=== PATIENT | female | born 1935 | race Caucasian/White ===

== ENCOUNTER 2016-09-01 10:36 | Observation (INO) | payer OTHER ==
[2016-09-01 12:27] VITALS: BMI 38.1
--- NOTE | 2016-09-01 13:17 | CT ---
CT head without contrast Indication: Dizziness. Syncope and fall. Technique: Axial images from the skullbase to the vertex without contrast. Coronal and sagittal refo rmats provided. Findings: There is a intracranial hemorrhage, mass or mass effect. The no extra-axial fluid collecti on is seen. A atrophic changes are noted with ex vacuo ventricle and sulcal enlargement. Patchy whit e matter hypodensities noted. Review of bone windows shows no osseous lesion. Paranasal sinuses and mastoid air cells are clear. Impression: Atrophy and microangiopathy without acute intracranial hemorrhage or change from the isamar or. If there is high suspicion for acute infarction and it would make a clinical difference to diagn ose stroke now, MRI is most sensitive and specific absent contraindication. Reported By:
--- NOTE | 2016-09-01 13:25 | RAD ---
HISTORY: Syncope Study: Chest one view Comparison: July 18, 2016 Findings: The trachea is midline. The cardiac silhouette is unremarkable. The lungs are clear without focal infiltrate or effusion. The bony thorax is unremarkable. IMPRESSION: 1. No acute cardiopulmonary disease. Reported By:
[2016-09-01] MEDS ORDERED: XYLOCAINE 1 % (PLAIN) ONE (13:43)
[2016-09-01 14:12] LABS: BILIRUBIN,URINE NEGATIVE (NEGATIVE); BLOOD/HEMOGLOBIN,URINE NEGATIVE (NEGATIVE); GLUCOSE, URINE NEGATIVE (NEGATIVE); KETONES,URINE NEGATIVE (NEGATIVE); LEUKOCYTE ESTERASE ,URINE NEGATIVE (NEGATIVE); NITRITES,URINE NEGATIVE (NEGATIVE); PROTEIN,URINE NEGATIVE (NEGATIVE); UROBILINOGEN,URINE NORMAL (NORMAL)
--- NOTE | 2016-09-01 14:18 | DR.UPDATE ---
H&P Update History and Physical Update: History and Physical reviewed and patient examined. Changes noted: NO Yes with the following:Agree with H&P from Dr Miller. And will place central venous catheter secondary to exhaustion of peripheral veins. Procedures (ALL) - Central Line Placement PCM.CLCO: written consent Time out performed: Yes Patient placed pm monitor/pulse ox: Yes MD prep: mask, gown, gloves Centrial line prep: chlorhexidine scrub, sterile drapes applied Local anesthsia used: lidocane 1% Ultrasound used for placement: Yes Central line lumen ininserted: triple Post procedure: sutured in place, good blood return, all ports aspirated, flushed,capped, sterile dressing applied Post procedure xray: other (pending) Patient tolerated procedure: Yes Complications: none
[2016-09-01 14:30] LABS: APPEARANCE,URINE HAZY (CLEAR); BACTERIA,URINE TRACE /HPF (NEGATIVE); COLOR,URINE YELLOW (YELLOW); RBC,URINE 0-2 /HPF (NEGATIVE); SQUAMOUS EPITHELIAL CELL,UR RARE /HPF (NEGATIVE)
--- NOTE | 2016-09-01 14:38 | RAD ---
Chest AP portable Indication: Central line placement. Comparison: September 01, 2016 radiograph. Findings: Partially visualize right probably IJ catheter tip projects over the SVC. There is no pneu mothorax seen. Heart size upper limits of normal. Chronic lung changes again noted with basilar scar ring. Impression: New right-sided catheter tip projects over the SVC. Study is mildly limited due to posit ioning. Reported By:
[2016-09-01] MEDS ORDERED: NORCO 10/325 TAB PO PRN (14:39)
[2016-09-01] MEDS: NS 1000 ML 1,000 ML IV SCH (14:54)
[2016-09-01 15:51] LABS: BASOPHILS # (AUTO) 0.1 X10^3/uL (0.0-0.1); BASOPHILS % (AUTO) 1.7 % (0.2-1.0); EOSINOPHILS # (AUTO) 0.3 x10^3/uL (0.0-0.2); EOSINOPHILS % (AUTO) 4.2 % (0.9-2.9); HEMATOCRIT 42.9 % (36.0-47.0); HEMOGLOBIN 14.3 g/dL (12.0-16.0); LYMPHOCYTES # (AUTO) 0.8 X10^3/uL (1.3-2.9); LYMPHOCYTES % (AUTO) 13.7 % (21.0-51.0); MEAN CORPUSCULAR HEMOGLOBIN 30.2 pg (27.0-34.0); MEAN CORPUSCULAR HGB CONC 33.3 g/dL (33.0-35.0); MEAN CORPUSCULAR VOLUME 90.8 fL (80.0-100.0); MEAN PLATELET VOLUME 10.8 fL (7.4-11.0); MONOCYTES # (AUTO) 0.7 x10^3/uL (0.3-0.8); MONOCYTES % (AUTO) 12.1 % (0.0-13.0); NEUTROPHILS # (AUTO) 4.2 x10^3/uL (2.2-4.8); NEUTROPHILS % (AUTO) 68.3 % (42.0-75.0); PLATELET COUNT 148 X10^3/uL (150.0-450.0); RED BLOOD COUNT 4.72 X10^6/uL (3.5-5.4); RED CELL DISTRIBUTION WIDTH 13.6 % (11.6-16.5); WHITE BLOOD COUNT 6.1 X10^3/uL (3.6-10.0)
[2016-09-01 16:10] LABS: ALBUMIN 3.2 g/dL (3.4-5.0); CALCIUM 8.7 mg/dL (8.5-10.1); CARBON DIOXIDE 31.2 mmol/L (21-32); COR CA(FOR HYPOALB) 9.3 mg/dL (8.5-10.1); CREATININE 1.15 mg/dL (0.55-1.02); TOTAL PROTEIN 6.9 g/dL (6.4-8.2)
[2016-09-01] MEDS: NORCO 10/325 TAB PO PRN (21:59)
[2016-09-01] MEDS: K-DUR TAB 20 MEQ PO SCH (22:01)
[2016-09-01] MEDS: LOPRESSOR TAB 25 MG PO SCH (22:08)
[2016-09-02] MEDS: NS 1000 ML 1,000 ML IV SCH ×2 (02:24→14:43)
[2016-09-02] MEDS ORDERED: LYRICA CAP 100 MG PO SCH (09:00)
[2016-09-02] MEDS ORDERED: ALDACTONE TAB 25 MG PO SCH (09:00)
[2016-09-02] MEDS ORDERED: CYMBALTA PO SCH (09:00)
[2016-09-02] MEDS ORDERED: LASIX PO SCH (09:00)
[2016-09-02] MEDS: ZOLOFT PO SCH (09:43)
[2016-09-02] MEDS: LOPRESSOR TAB 25 MG PO SCH ×2 (09:44→21:43)
[2016-09-02] MEDS: NORCO 10/325 TAB PO PRN ×3 (09:51→22:19)
[2016-09-02] MEDS: FLONASE NASAL SPRAY ENOSTRIL SCH (09:57)
--- NOTE | 2016-09-02 18:06 | PCM.PROG ---
Progress Note - Progress Note for Day of Date: 09/02/16 - Subjective Subjective: RIGHT LOWER ABDOMINAL PAIN AND NAUSEA. PT HAS CO CHRONIC CONSTIPATION AND HX DIVERTICULITIS. PT WAS ADMITTED ONE DAY AGO FOR WEAKNESS AND CXR AND CT HEAT W/O ACUTE FINDINGS - Past Medical Family Social History Past Med/Fam/Surg Hx: No changes since H&P Allergies: Allergies Penicillins Allergy (Verified 07/18/16 11:57) - Review of Systems ROS: No change since H&P - Vital Signs and I&O's Vital Signs: Temperature 98.2 F Pulse Rate [Right Brachial] 72 Respiratory Rate 20 Blood Pressure [Right Arm] 129/59 Blood Pressure [Right Calf] 116/66 Blood Pressure [Left Arm] 109/58 Blood Pressure 135/63 O2 Sat by Pulse Oximetry 95 Intake and Output: Intake & Output 08/31/16 09/01/16 09/02/16 09/03/16 11:59 11:59 11:59 11:59 Intake Total 1521 1080 Output Total 600 2100 Balance 921 -1020 - Physical Exam Oriented: Normal Eyes: Normal Ear: Normal Nose: Normal Throat: Normal Respiratory: Normal Cardiovascular: Normal : Normal Auscultation: Bowel Sounds: Normal Tenderness: RUQ, RLQ, Epigastric Skin: Normal Musculoskeletal: Back:Thoracic, Back:Lumbar Speech Pattern: Clear, Appropriate - Laboratory and Diagnostics Result Diagrams: 09/01/16 15:40 09/01/16 15:40 Labs: Laboratory WBC 6.1 X10^3/uL (3.6-10.0) 09/01/16 15:40 RBC 4.72 X10^6/uL (3.5-5.4) 09/01/16 15:40 Hgb 14.3 g/dL (12.0-16.0) 09/01/16 15:40 Hct 42.9 % (36.0-47.0) 09/01/16 15:40 MCV 90.8 fL (80.0-100.0) 09/01/16 15:40 MCH 30.2 pg (27.0-34.0) 09/01/16 15:40 MCHC 33.3 g/dL (33.0-35.0) 09/01/16 15:40 RDW 13.6 % (11.6-16.5) 09/01/16 15:40 Plt Count 148 X10^3/uL (150.0-450.0) L 09/01/16 15:40 MPV 10.8 fL (7.4-11.0) 09/01/16 15:40 Neut % 68.3 % (42.0-75.0) 09/01/16 15:40 Lymph % 13.7 % (21.0-51.0) L 09/01/16 15:40 [place] % 12.1 % (0.0-13.0) 09/01/16 15:40 Eos % 4.2 % (0.9-2.9) H 09/01/16 15:40 Baso % 1.7 % (0.2-1.0) H 09/01/16 15:40 Neut # 4.2 x10^3/uL (2.2-4.8) 09/01/16 15:40 Lymph # 0.8 X10^3/uL (1.3-2.9) L 09/01/16 15:40 [place] # 0.7 x10^3/uL (0.3-0.8) 09/01/16 15:40 Eos # 0.3 x10^3/uL (0.0-0.2) H 09/01/16 15:40 Baso # 0.1 X10^3/uL (0.0-0.1) 09/01/16 15:40 Absolute Nucleated RBC 0.0 /100WBC 09/01/16 15:40 Sodium 142 mmol/L (136-145) 09/01/16 15:40 Corrected Sodium 142 mmol/L (136-145) 09/01/16 15:40 Potassium 4.1 mmol/L (3.5-5.1) 09/01/16 15:40 Chloride 105 mmol/L (98-107) 09/01/16 15:40 Carbon Dioxide 31.2 mmol/L (21-32) 09/01/16 15:40 BUN 15 mg/dL (7-18) 09/01/16 15:40 Creatinine 1.15 mg/dL (0.55-1.02) H 09/01/16 15:40 Est GFR (MDRD) Af Amer 58 (>60) L 09/01/16 15:40 Est GFR (MDRD) Non-Af 48 (>60) L 09/01/16 15:40 Glucose 117 mg/dL (65-99) H 09/01/16 15:40 Calcium 8.7 mg/dL (8.5-10.1) 09/01/16 15:40 Corrected Calcium 9.3 mg/dL (8.5-10.1) 09/01/16 15:40 Total Bilirubin 0.40 mg/dL (0.2-1.0) 09/01/16 15:40 AST 20 Units/L (15-37) 09/01/16 15:40 ALT 19 Units/L (12-78) 09/01/16 15:40 Alkaline Phosphatase 93 Units/L (46-116) 09/01/16 15:40 Total Protein 6.9 g/dL (6.4-8.2) 09/01/16 15:40 Albumin 3.2 g/dL (3.4-5.0) L 09/01/16 15:40 Globulin 3.7 g/dL (2.5-4.5) 09/01/16 15:40 Albumin/Globulin Ratio 0.9 Ratio (1.1-2.1) L 09/01/16 15:40 Specimen Type Clean catch urine 09/01/16 13:57 Urine Color Yellow (YELLOW) 09/01/16 13:57 Urine Appearance Hazy (CLEAR) 09/01/16 13:57 Urine pH 5.0 (5.0 - 8.0) 09/01/16 13:57 Ur Specific [place] 1.015 (1.000-1.030) 09/01/16 13:57 Urine Protein Negative (NEGATIVE) 09/01/16 13:57 Urine Glucose (UA) Negative (NEGATIVE) 09/01/16 13:57 Urine Ketones Negative (NEGATIVE) 09/01/16 13:57 Urine Occult Blood Negative (NEGATIVE) 09/01/16 13:57 Urine Nitrite Negative (NEGATIVE) 09/01/16 13:57 Urine Bilirubin Negative (NEGATIVE) 09/01/16 13:57 Urine Urobilinogen Normal (NORMAL) 09/01/16 13:57 Ur Leukocyte Esterase Negative (NEGATIVE) 09/01/16 13:57 Urine RBC 0-2 /HPF (NEGATIVE) 09/01/16 13:57 Urine WBC 0-2 /HPF (NEGATIVE) 09/01/16 13:57 Ur Squamous Epith Cells Rare /HPF (NEGATIVE) 09/01/16 13:57 Urine Bacteria Trace /HPF (NEGATIVE) 09/01/16 13:57 Ur Culture Indicated? No/not indicated 09/01/16 13:57 - Plan (1) Abdominal pain Status: Acute Qualifiers: Abdominal location: right lower quadrant Qualified Code(s): R10.31 - Right lower quadrant pain Plan: AMYLASE AND LIPASE. STAT ABDOMEN SERIES. CT ABD/PELVIS Q AM, NPO AFTER MIDNIGHT (2) Weakness Status: Acute (3) HTN (hypertension) Status: Chronic Qualifiers: Hypertension type: H (4) Osteoporosis Status: Chronic Qualifiers: Osteoporosis type: O Presence of current pathological fracture: P Encounter type: E Fracture healing: F (5) Pulmonary HTN Status: Chronic
--- NOTE | 2016-09-02 20:19 | RAD ---
Acute abdomen series three views Indication: Abdominal pain right flank pain. Comparison: September 01, 2016 chest radiograph. Findings: Chest radiograph shows right IJ catheter projecting over the IVC. No new acute abnormality of the chest seen. Multiple vertebroplasty changes noted with spine degenerative changes spine stim ulator device projecting over the left hip. There is no free air or pneumatosis. Gas and stool seen in the colon. No dilated loop of small bowel seen. Impression: No high-grade obstruction, gross free air or pneumatosis seen. Reported By:
[2016-09-02] MEDS ORDERED: MIRALAX POWDER (1 DOSE 17GM) PO SCH (21:00)
[2016-09-02] MEDS: PROTONIX INJ 40 MG VIAL IVP SCH (21:42)
[2016-09-02] MEDS: K-DUR TAB 20 MEQ PO SCH (21:43)
[2016-09-03] MEDS: TYLENOL 325 MG TAB PO PRN ×2 (00:07→08:29)
[2016-09-03] MEDS: NORCO 10/325 TAB PO PRN ×2 (04:48→11:50)
[2016-09-03] MEDS: NS 1000 ML 1,000 ML IV SCH (04:50)
[2016-09-03 05:18] LABS: BASOPHILS % (AUTO) 0.7 % (0.2-1.0); EOSINOPHILS # (AUTO) 0.2 x10^3/uL (0.0-0.2); EOSINOPHILS % (AUTO) 5.5 % (0.9-2.9); HEMATOCRIT 38.3 % (36.0-47.0); HEMOGLOBIN 12.8 g/dL (12.0-16.0); LYMPHOCYTES # (AUTO) 0.7 X10^3/uL (1.3-2.9); LYMPHOCYTES % (AUTO) 14.8 % (21.0-51.0); MEAN CORPUSCULAR HEMOGLOBIN 30.3 pg (27.0-34.0); MEAN CORPUSCULAR HGB CONC 33.5 g/dL (33.0-35.0); MEAN CORPUSCULAR VOLUME 90.5 fL (80.0-100.0); MONOCYTES # (AUTO) 0.5 x10^3/uL (0.3-0.8); MONOCYTES % (AUTO) 12.1 % (0.0-13.0); NEUTROPHILS % (AUTO) 66.9 % (42.0-75.0); PLATELET COUNT 111 X10^3/uL (150.0-450.0); RED BLOOD COUNT 4.23 X10^6/uL (3.5-5.4); RED CELL DISTRIBUTION WIDTH 13.3 % (11.6-16.5); WHITE BLOOD COUNT 4.4 X10^3/uL (3.6-10.0)
[2016-09-03 05:36] LABS: ALANINE AMINOTRANSFERASE 14 Units/L (12-78); ALBUMIN 2.9 g/dL (3.4-5.0); ALKALINE PHOSPHATASE 77 Units/L (46-116); AMYLASE 86 Units/L (25-115); ASPARTATE AMINO TRANSFERASE 19 Units/L (15-37); BLOOD UREA NITROGEN 22 mg/dL (7-18); CALCIUM 8.5 mg/dL (8.5-10.1); CARBON DIOXIDE 30.3 mmol/L (21-32); CHLORIDE 107 mmol/L (98-107); COR CA(FOR HYPOALB) 9.4 mg/dL (8.5-10.1); GLUCOSE 87 mg/dL (65-99); LIPASE 114 Units/L (73-393); SODIUM 144 mmol/L (136-145); TOTAL PROTEIN 6.4 g/dL (6.4-8.2); eGFR BLACK RACES > 60 (>60); eGFR NON BLACK RACES 57 (>60)
--- NOTE | 2016-09-03 08:13 | CT ---
HISTORY: Fever, nausea, abdominal pain Study: CT abdomen pelvis without contrast Comparison: None Technique: Axial non contrast images with coronal and sagittal reformats. Dose reduction procedures were used with MA/kv adjusted for body size. The lack of intravenous contrast limits this examinatio n. Findings: The lung bases are clear. There is a small hiatal hernia present. The liver, spleen, adrenal glands, and pancreas are within normal limits. The patient is status post cholecystectomy. The kidneys are unobstructed and without stones. No ureteral calculi are identified. The appendix is surgically abse nt by history. Calcific atherosclerotic change is present in a nondilated abdominal aorta. No enlarg ed intraperitoneal or retroperitoneal lymphadenopathy is identified. There is no evidence for divert iculitis or colitis. Examination of the pelvis demonstrated no evidence for pelvic masses, pelvic fl uid, or pelvic lymphadenopathy. No bladder abnormality is identified. No lytic or blastic skeletal l esions are identified. Multiple thoracic and lumbar compression fractures previously treated with ky phoplasty are noted. IMPRESSION: Small hiatal hernia No other significant findings on unenhanced examination Reported By:
[2016-09-03] MEDS: ZOLOFT PO SCH (08:27)
[2016-09-03] MEDS: PROTONIX INJ 40 MG VIAL IVP SCH (08:27)
[2016-09-03] MEDS: LOPRESSOR TAB 25 MG PO SCH (08:27)
[2016-09-03] MEDS: FLONASE NASAL SPRAY ENOSTRIL SCH (08:33)
--- NOTE | 2016-09-03 09:07 | RAD ---
HISTORY: Chronic back pain Study: T-spine three view Comparison: CT thoracic spine July 18, 2016 Findings: There is increased thoracic kyphosis due to multiple lower thoracic compression fractures previously treated with kyphoplasty. There is loss of height in T11 unchanged from the prior CT. The remainder the vertebral bodies are of average height. Degenerative disc disease is present at T11-12 and T12- L1. The remainder the disc heights are preserved. The pedicles are intact. The paraspinous soft tiss ues are normal. IMPRESSION: Increased thoracic kyphosis secondary to multiple lower thoracic and upper lumbar compression fractu res previously treated with kyphoplasty Mild compression T11 unchanged from the prior examination Degenerative disc disease T11-12, T12-L1 Reported By:
[2016-09-03] MEDS ORDERED: CHECK PATCH XX SCH (12:00)
[2016-09-03 12:29] VITALS: BP 129/58
[2016-09-03] MEDS ORDERED: LYRICA CAP 100 MG PO SCH (21:00)
[2016-09-03] MEDS ORDERED: CYMBALTA PO SCH (21:00)
== END 2016-09-03 13:40 | disposition home or self-care (01) ==
LOC: MED/SURG 10:36
PROVIDERS: ADMIT Internal Medicine; ATTEND Internal Medicine
PROC: 02HV33Z Insertion of Infusion Device into Superior Vena Cava, Percutaneous Approach (ICD-10-PCS; principal; 2016-09-01)
DX: R55 Syncope and collapse (principal); R42 Dizziness and giddiness; R29.6 Repeated falls; R10.31 Right lower quadrant pain; R10.84 Generalized abdominal pain; R11.0 Nausea; K59.09 Other constipation; R53.1 Weakness; I27.2 Other secondary pulmonary hypertension; M81.8 Other osteoporosis without current pathological fracture; M51.34 Other intervertebral disc degeneration, thoracic region; Z87.19 Personal history of other diseases of the digestive system; I87.2 Venous insufficiency (chronic) (peripheral)
CPT/HCPCS: 36415; 36556; 70450; 71010; 72072; 74022; 74176; 80053; 81001; 82150; 83690; 85025; 87040; 93005; 93010; 94760; A4222; C9113; G0378; J2001

== ENCOUNTER 2018-09-06 14:05 | Inpatient (IN) ==
[2018-09-06 14:54] LABS: BASOPHILS % (AUTO) 0.5 % (0.2-1.0); EOSINOPHILS # (AUTO) 0.2 x10^3/uL (0.0-0.2); EOSINOPHILS % (AUTO) 2.4 % (0.9-2.9); HEMATOCRIT 43.3 % (36.0-47.0); HEMOGLOBIN 14.4 g/dL (12.0-16.0); LYMPHOCYTES # (AUTO) 0.8 X10^3/uL (1.3-2.9); LYMPHOCYTES % (AUTO) 11.1 % (21.0-51.0); MEAN CORPUSCULAR HEMOGLOBIN 30.8 pg (27.0-34.0); MEAN CORPUSCULAR HGB CONC 33.3 g/dL (33.0-35.0); MEAN CORPUSCULAR VOLUME 92.6 fL (80.0-100.0); MEAN PLATELET VOLUME 11.5 fL (7.4-11.0); MONOCYTES # (AUTO) 0.8 x10^3/uL (0.3-0.8); MONOCYTES % (AUTO) 11.4 % (0.0-13.0); NEUTROPHILS # (AUTO) 5.5 x10^3/uL (2.2-4.8); NEUTROPHILS % (AUTO) 74.6 % (42.0-75.0); PLATELET COUNT 133 X10^3/uL (150.0-450.0); RED BLOOD COUNT 4.67 X10^6/uL (3.5-5.4); RED CELL DISTRIBUTION WIDTH 13.3 % (11.6-16.5); WHITE BLOOD COUNT 7.3 X10^3/uL (3.6-10.0)
--- NOTE | 2018-09-06 15:00 | DR.EXTPAIN ---
HPI Time seen Time Seen by Provider: 09/06/18 14:13 PCP Primary Care Physician: JOHNY Complaint/Symptoms Chief Complaint:: PT. STATES SHE FELL ON THURSDAY AND C/O OF LOWER BACK AND ABDOMEN PAIN. PT. STATES SHE HAS BEEN COUGHING X 2 WEEKS AND HAS RIB PAIN. Source History Provided: Patient Mode of arrival Mode of Arrival: Wheelchair Timing Onset of Chief Complaint: 09/04/18 PMH PMH Past Medical History: Yes Past Medical History: Anxiety, Arthritis, Depression, GERD and Sleep Apnea Past Surgical History: Yes Surgical History: Cholecystectomy, Hysterectomy and Mastectomy Family History History of Family Medical Conditions: Yes Family Medical History: Diabetes Mellitus, Cancer, [place], Heart Failure, Sudden Cardiac and Hypertension Social History Does patient currently use any type of tobacco product: No Have you used tobacco products in the last 12 months: No Type of Tobacco Use: None Does any household member use tobacco: No Alcohol Use: None Do you use any recreational Drugs:: No Lives Where: [facility] infectious screening In the last 2 months have you had wt loss of >10#?: NO Have you had fever, night sweats or hemotysis?: No Have you traveled outside the country in the last 6 months?: No Isolation: Standard PE Vital Signs Vitals: Temperature 97.8 F Pulse Rate [Right Brachial] 92 Pulse Rate 91 Respiratory Rate 17 Blood Pressure [Right Arm] 143/74 Blood Pressure [Right Calf] 116/66 Blood Pressure [Left Arm] 130/60 Blood Pressure 142/77 O2 Sat by Pulse Oximetry 95 ROR Labs Reviewed Result Diagrams: 09/06/18 14:46 09/06/18 14:46 Laboratory: WBC 7.3 X10^3/uL (3.6-10.0) 09/06/18 14:46 RBC 4.67 X10^6/uL (3.5-5.4) 09/06/18 14:46 Hgb 14.4 g/dL (12.0-16.0) 09/06/18 14:46 Hct 43.3 % (36.0-47.0) 09/06/18 14:46 MCV 92.6 fL (80.0-100.0) 09/06/18 14:46 MCH 30.8 pg (27.0-34.0) 09/06/18 14:46 MCHC 33.3 g/dL (33.0-35.0) 09/06/18 14:46 RDW 13.3 % (11.6-16.5) 09/06/18 14:46 Plt Count 133 X10^3/uL (150.0-450.0) L 09/06/18 14:46 MPV 11.5 fL (7.4-11.0) H 09/06/18 14:46 Neut % (Auto) 74.6 % (42.0-75.0) 09/06/18 14:46 Lymph % (Auto) 11.1 % (21.0-51.0) L 09/06/18 14:46 [place] % (Auto) 11.4 % (0.0-13.0) 09/06/18 14:46 Eos % (Auto) 2.4 % (0.9-2.9) 09/06/18 14:46 Baso % (Auto) 0.5 % (0.2-1.0) 09/06/18 14:46 Neut # (Auto) 5.5 x10^3/uL (2.2-4.8) H 09/06/18 14:46 Lymph # (Auto) 0.8 X10^3/uL (1.3-2.9) L 09/06/18 14:46 [place] # (Auto) 0.8 x10^3/uL (0.3-0.8) 09/06/18 14:46 Eos # (Auto) 0.2 x10^3/uL (0.0-0.2) 09/06/18 14:46 Baso # (Auto) 0.0 X10^3/uL (0.0-0.1) 09/06/18 14:46 Absolute Nucleated RBC 0.0 /100WBC 09/06/18 14:46 Sodium 138 mmol/L (136-145) 09/06/18 14:46 Corrected Sodium TNP 09/06/18 14:46 Potassium 4.9 mmol/L (3.5-5.1) 09/06/18 14:46 Chloride 103 mmol/L (98-107) 09/06/18 14:46 Carbon Dioxide 29.7 mmol/L (21-32) 09/06/18 14:46 BUN 24 mg/dL (7-18) H 09/06/18 14:46 Creatinine 1.09 mg/dL (0.55-1.02) H 09/06/18 14:46 Est GFR (MDRD) Af Amer > 60 (>60) 09/06/18 14:46 Est GFR (MDRD) Non-Af 51 (>60) L 09/06/18 14:46 Glucose 93 mg/dL (65-99) 09/06/18 14:46 Calcium 9.1 mg/dL (8.5-10.1) 09/06/18 14:46 Corrected Calcium TNP 09/06/18 14:46 Total Bilirubin 0.60 mg/dL (0.2-1.0) 09/06/18 14:46 AST 79 Units/L (15-37) H 09/06/18 14:46 ALT 87 Units/L (12-78) H 09/06/18 14:46 Alkaline Phosphatase 95 Units/L (46-116) 09/06/18 14:46 Total Protein 7.4 g/dL (6.4-8.2) 09/06/18 14:46 Albumin 3.5 g/dL (3.4-5.0) 09/06/18 14:46 Globulin 3.9 g/dL (2.5-4.5) 09/06/18 14:46 Albumin/Globulin Ratio 0.9 Ratio (1.1-2.1) L 09/06/18 14:46 Amylase 98 Units/L (25-115) 09/06/18 14:46 Lipase 114 Units/L (73-393) 09/06/18 14:46 Diagnosis Discharge Problem: Intractable pain
[2018-09-06 15:05] LABS: ALANINE AMINOTRANSFERASE 87 Units/L (12-78); ALBUMIN 3.5 g/dL (3.4-5.0); ALKALINE PHOSPHATASE 95 Units/L (46-116); AMYLASE 98 Units/L (25-115); ASPARTATE AMINO TRANSFERASE 79 Units/L (15-37); BLOOD UREA NITROGEN 24 mg/dL (7-18); CALCIUM 9.1 mg/dL (8.5-10.1); CARBON DIOXIDE 29.7 mmol/L (21-32); CHLORIDE 103 mmol/L (98-107); CREATININE 1.09 mg/dL (0.55-1.02); LIPASE 114 Units/L (73-393); SODIUM 138 mmol/L (136-145); TOTAL PROTEIN 7.4 g/dL (6.4-8.2); eGFR NON BLACK RACES 51 (>60)
--- NOTE | 2018-09-06 15:50 | CT ---
HISTORY: Fall, low back pain Study: CT lumbar spine without contrast Comparison: CT 09/03/2016 Technique: Multiple axial images of the lumbar spine without the administration of IV contrast. Sagittal and coronal reformats were performed and reviewed. Dose reduction techniques including Automated Exposure Control (AEC) and adjustment of mA and kV were utilized. Findings: There is osteopenia noted which reduces sensitivity to detect nondisplaced fractures. There is kyphosis of the spine centered at the thoracolumbar junction with chronic compression fractures of T11-L3 post vertebroplasty. There is a new fracture involving the inferior/posterior endplate T10 best seen on sagittal images. There are also acute fracture lucency through the bilateral pedicles of T11 also best seen on sagittal images. There is a subacute appearing fracture of the left posterior 12th rib. There is a trace right pleural effusion and chronic emphysematous disease. Gallbladder is removed. IMPRESSION: 1. Nondisplaced fractures involving the inferior/posterior endplate of T10 and additional nondisplaced fractures through the bilateral pedicles of T11 best seen on the sagittal images. 2. Chronic fractures post vertebroplasty involving T11-L3 in the setting of diffuse osteopenia. Reported By:
[2018-09-06] MEDS ORDERED: ZOFRAN INJ 4 MG VIAL IVP ONE (15:58)
[2018-09-06] MEDS ORDERED: ZOFRAN INJ 4 MG VIAL ONE (16:05)
[2018-09-06] MEDS ORDERED: MORPHINE SULFATE INJ 4 MG ONE (16:06)
[2018-09-06] MEDS: MORPHINE SULFATE INJ 4 MG IVP ONE ×2 (16:14→17:05)
--- NOTE | 2018-09-06 16:52 | CT ---
HISTORY: Fall Study: CT brain without contrast Comparison: September 01, 2016 Technique: Multiple axial images of the brain were obtained from the skull base to the vertex without administration of IV contrast. Findings: No acute intraparenchymal hemorrhage or mass can be identified. No extra-axial fluid collections are seen. No alteration in the attenuation of the brain parenchyma can be identified to suggest acute or subacute ischemic change. The ventricles, sulci, and cisterns demonstrate an appearance consistent with a mild degree of generalized atrophy. Patchy areas of decreased attenuation within the periventricular, subcortical, and subinsular white matter suggest changes of chronic small vessel ischemic disease. If symptoms or clinical concern persist recommend continued follow-up for further evaluation. IMPRESSION: No acute intracranial process can be identified. Mild generalized atrophy with findings consistent with changes of chronic small vessel ischemic disease. Reported By:
[2018-09-06] MEDS ORDERED: MORPHINE SULFATE INJ 2 MG INJ IVP SCH (18:00)
[2018-09-06] MEDS ORDERED: ZOFRAN INJ 4 MG VIAL IVP PRN (18:02)
[2018-09-06] MEDS ORDERED: XANAX PO PRN (18:02)
[2018-09-06 18:24] LABS: BILIRUBIN,URINE NEGATIVE (NEGATIVE); BLOOD/HEMOGLOBIN,URINE NEGATIVE (NEGATIVE); GLUCOSE, URINE NEGATIVE (NEGATIVE); KETONES,URINE NEGATIVE (NEGATIVE); LEUKOCYTE ESTERASE ,URINE NEGATIVE (NEGATIVE); NITRITES,URINE NEGATIVE (NEGATIVE); PROTEIN,URINE NEGATIVE (NEGATIVE); UROBILINOGEN,URINE NORMAL (NORMAL)
[2018-09-06 18:26] LABS: APPEARANCE,URINE CLEAR (CLEAR); COLOR,URINE YELLOW (YELLOW)
[2018-09-06 18:44] VITALS: BMI 38.5
[2018-09-06] MEDS: NS 1000 ML 1,000 ML IV SCH (18:49)
[2018-09-06] MEDS ORDERED: MORPHINE SULFATE INJ 2 MG INJ IVP ONE (20:12)
[2018-09-06] MEDS: PriLOSEC PO SCH (20:53)
[2018-09-06] MEDS: LYRICA CAP 150 MG PO SCH (20:53)
[2018-09-06] MEDS: INDERAL TAB 10 MG PO SCH (20:53)
[2018-09-06] MEDS: COLACE CAP 100 MG PO SCH (20:53)
[2018-09-06] MEDS: MILK OF MAGNESIA PO SCH (20:54)
[2018-09-06] MEDS: MORPHINE SULFATE INJ 2 MG INJ IVP PRN (22:00)
[2018-09-07] MEDS: MORPHINE SULFATE INJ 2 MG INJ IVP SCH ×3 (01:26→18:18)
[2018-09-07 05:24] LABS: BASOPHILS % (AUTO) 0.6 % (0.2-1.0); EOSINOPHILS # (AUTO) 0.2 x10^3/uL (0.0-0.2); EOSINOPHILS % (AUTO) 2.6 % (0.9-2.9); HEMATOCRIT 43.5 % (36.0-47.0); HEMOGLOBIN 14.4 g/dL (12.0-16.0); LYMPHOCYTES # (AUTO) 0.7 X10^3/uL (1.3-2.9); LYMPHOCYTES % (AUTO) 12.9 % (21.0-51.0); MEAN CORPUSCULAR HGB CONC 33.1 g/dL (33.0-35.0); MEAN CORPUSCULAR VOLUME 93.8 fL (80.0-100.0); MEAN PLATELET VOLUME 12.6 fL (7.4-11.0); MONOCYTES % (AUTO) 16.6 % (0.0-13.0); NEUTROPHILS # (AUTO) 3.9 x10^3/uL (2.2-4.8); NEUTROPHILS % (AUTO) 67.3 % (42.0-75.0); PLATELET COUNT 132 X10^3/uL (150.0-450.0); RED BLOOD COUNT 4.63 X10^6/uL (3.5-5.4); RED CELL DISTRIBUTION WIDTH 13.3 % (11.6-16.5); WHITE BLOOD COUNT 5.8 X10^3/uL (3.6-10.0)
[2018-09-07] MEDS: MORPHINE SULFATE INJ 2 MG INJ IVP PRN ×3 (05:26→21:42)
[2018-09-07 05:34] LABS: ALANINE AMINOTRANSFERASE 338 Units/L (12-78); ALBUMIN 3.1 g/dL (3.4-5.0); ALKALINE PHOSPHATASE 226 Units/L (46-116); ASPARTATE AMINO TRANSFERASE 440 Units/L (15-37); BLOOD UREA NITROGEN 19 mg/dL (7-18); CALCIUM 8.8 mg/dL (8.5-10.1); CARBON DIOXIDE 32.4 mmol/L (21-32); CHLORIDE 101 mmol/L (98-107); COR CA(FOR HYPOALB) 9.5 mg/dL (8.5-10.1); CREATININE 1.22 mg/dL (0.55-1.02); SODIUM 140 mmol/L (136-145); TOTAL PROTEIN 6.9 g/dL (6.4-8.2); eGFR NON BLACK RACES 45 (>60)
[2018-09-07] MEDS: NS 1000 ML 1,000 ML IV SCH ×2 (06:31→20:03)
[2018-09-07 08:27] LABS: CHOL/HDL RATIO 3.2 (0.0-5.0)
[2018-09-07] MEDS: K-DUR TAB 20 MEQ PO SCH (09:02)
[2018-09-07] MEDS: MILK OF MAGNESIA PO SCH (09:02)
[2018-09-07] MEDS: LASIX PO SCH (09:02)
[2018-09-07] MEDS: INDERAL TAB 10 MG PO SCH ×2 (09:02→20:09)
[2018-09-07] MEDS: ZANTAC PO SCH (09:02)
[2018-09-07] MEDS: ALDACTONE TAB 25 MG PO SCH (09:02)
[2018-09-07] MEDS: WELLBUTRIN XL 150 MG (DAILY) PO SCH (09:02)
[2018-09-07] MEDS: CYMBALTA PO SCH (09:04)
--- NOTE | 2018-09-07 12:34 | DR.H&P ---
H&P - History & Physical for Day of: H&P Date: 09/06/18 - Chief Complaint Chief Complaint: weakness, fall on Thursday with intractable low back pain, cough for several weeks - History of Present Illness History of Present Illness: 83 [facility] ER ADMISSION AFTER PRESENTING WITH CO FALL ON THURSDAY DUE TO WEAKNESS AND COUGHING FOR A WEEK. PT STATES HER LOWER BACK AND MID BACK HAS BEEN VERY PAINFUL WITH TOUCH AND MOVEMENT SINCE FALL. PT SAID EMS EVALUATED HER AT HOME AFTER FALL BUT SHE DID NOT WANT TO GO TO [facility] SO SHE WAITED UNTIL SHE WAS ABLE TO CO TO [facility]. PT HAS PMH OF OA, HTN, HUN[place], GERD. PT HAD CT BACK WITH NEW COMPRESSION FRACTURES. PT ADMITTED FOR PAIN CONTROL AND EVALUATION OF ACUTE ILLNESS. - Past Medical History Past Medical History: Depression, Anxiety, GERD, Arthritis, Sleep Apnea Additional Medical History: Fibromyalgia, Polyneuropathy, Clavicular fracture - Past Surgical History Surgical History: Cholecystectomy, Hysterectomy, Mastectomy - Family History Family Medical History: Hypertension - Social History Does patient currently use any type of tobacco product: No Have you used tobacco products in the last 12 months: No Type of Tobacco Use: None Does any household member use tobacco: No Alcohol Use: None Drug Use: Prescription Drugs - Medications Home Medications: Penicillins Allergy (Verified 09/06/18 14:14) CONTINUE taking the following medications albuterol sulfate [ProAir HFA] 2 puff INHALATION Q4H 09/06/18 [History] alprazolam 0.25 mg PO BID PRN 09/06/18 [History] benzonatate [Tessalon Perles] 100 mg PO DAILY 09/06/18 [History] bupropion HCl 150 mg PO DAILY 09/06/18 [History] duloxetine 30 mg PO DAILY 09/06/18 [History] fentanyl 25 mcg/hr TRANSDERMAL Q72H 09/06/18 [History] fluticasone propionate 2 spray INTRANASAL DAILY 09/06/18 [History] furosemide 20 mg PO DAILY 09/06/18 [History] hydrocodone-acetaminophen [[place]] 1 tab PO Q4H PRN 09/06/18 [History] montelukast [Singulair] 10 mg PO DAILY 09/06/18 [History] omeprazole 20 mg PO HS 09/06/18 [History] oxycodone 1 tab PO Q6H PRN 09/06/18 [History] polyethylene glycol 3350 [Miralax] 17 g PO DAILY 09/06/18 [History] pregabalin [Lyrica] 100 mg PO DAILY PRN 09/06/18 [History] promethazine 25 mg PO Q4-6H PRN 09/06/18 [History] promethazine-codeine 5 ml PO Q6H PRN 09/06/18 [History] propranolol 20 mg PO BID 09/06/18 [History] ranitidine HCl 150 mg PO BID 09/06/18 [History] spironolactone 25 mg PO DAILY 09/06/18 [History] - Review of Systems Constitutional: Weakness Eyes: No Symptoms Reported ENT: No Symptoms Reported Respiratory: Pleuritic Pain Cardiovascular: No Symptoms Reported Gastrointestinal: No Symptoms Reported Genitourinary: No Symptoms Reported Musculoskeletal: Back Pain Skin: No Symptoms Reported Neurological: Weakness - Physical Exam Vital Signs: Temperature 98.1 F Pulse Rate [Right Brachial] 104 Pulse Rate 91 Respiratory Rate 22 Blood Pressure [Right Arm] 111/53 Blood Pressure [Right Calf] 116/66 Blood Pressure [Left Arm] 130/60 Blood Pressure 142/77 O2 Sat by Pulse Oximetry 93 Oriented: Normal Eyes: Normal Ear: Normal Nose: Normal Throat: Normal Respiratory: RLL Diminished, LLL Diminished Cardiovascular: Normal : Normal Auscultation: Bowel Sounds: Normal Palpation: Normal Tenderness: Normal Skin: Decreased Turgur Musculoskeletal: Back:Thoracic, Back:Lumbar, Tender, Instability Psychiatric: Anxiety Affect: Anxious Speech Pattern: Clear, Appropriate - Assessment/Plan (1) Compression fracture Status: Acute Plan: ADMIT, IV PAIN CONTROL. PT CONSULT. VERIFY HOME MEDICATION, AM LABS. RESP CONSULT, CXR. IV ROCEPHIN 1GM DAILY (2) Acute bronchitis Status: Acute (3) Fall Status: Acute (4) Intractable pain Status: Acute (5) HTN (hypertension) Status: Chronic - Allergies Allergies/Adverse Reactions: Allergies Allergy/AdvReac Type Severity Reaction Status Date / Time Penicillins Allergy Verified 09/06/18 14:14
--- NOTE | 2018-09-07 12:41 | PCM.PROG ---
Progress Note - Progress Note for Day of Date of Exam: 09/07/18 - Subjective Subjective: 83 WF ER ADMISSION ON 09/06 WITH CO FALL WITH INSTRACTABLE BACK PAIN. PT HAS Nondisplaced fractures involving the inferior/posterior endplate of T10 andadditional nondisplaced fractures through the bilateral pedicles of T11. PT IS CURRENTLY ON PAIN CONTROL WITH PT CONSULT, RESP CONSULT AND CXR ORDERED FOR THIS AM. PT HAS INCREASED LFT'S THIS AM. PT STATES SHE HAD HER GALLBLADDER REMOVED YEARS AGO WITH NO GALLSTONES AT THAT TIME. PT HAD RUQ TENDERNESS, STATES SHE HURTS SINCE FALL. LIVER UX ORDERED FOR THIS AM. - Past Medical Family Social History Past Med/Fam/Surg Hx: No changes since H&P Allergies: Allergies Penicillins Allergy (Verified 09/06/18 14:14) RASH - Review of Systems ROS: No change since H&P - Vital Signs and I&O's Vital Signs: Temperature 98.1 F Pulse Rate [Right Brachial] 104 Pulse Rate 91 Respiratory Rate 22 Blood Pressure [Right Arm] 111/53 Blood Pressure [Right Calf] 116/66 Blood Pressure [Left Arm] 130/60 Blood Pressure 142/77 O2 Sat by Pulse Oximetry 93 Intake and Output: Intake & Output 09/05/18 09/06/18 09/07/18 09/08/18 11:59 11:59 11:59 11:59 Intake Total 1175 / 1175 Balance 1175 / 1175 - Physical Exam Oriented: Normal Eyes: Normal Ear: Normal Nose: Normal Throat: Normal Respiratory: Diminished Cardiovascular: Normal : Normal Auscultation: Bowel Sounds: Normal Tenderness: RUQ Skin: Decreased Turgur Musculoskeletal: Back:Thoracic, Back:Lumbar, Tender, Instability Psychiatric: Anxiety Affect: Anxious Speech Pattern: Clear, Appropriate - Laboratory and Diagnostics Result Diagrams: 09/07/18 05:08 09/07/18 05:08 Labs: Laboratory WBC 5.8 X10^3/uL (3.6-10.0) 09/07/18 05:08 RBC 4.63 X10^6/uL (3.5-5.4) 09/07/18 05:08 Hgb 14.4 g/dL (12.0-16.0) 09/07/18 05:08 Hct 43.5 % (36.0-47.0) 09/07/18 05:08 MCV 93.8 fL (80.0-100.0) 09/07/18 05:08 MCH 31.0 pg (27.0-34.0) 09/07/18 05:08 MCHC 33.1 g/dL (33.0-35.0) 09/07/18 05:08 RDW 13.3 % (11.6-16.5) 09/07/18 05:08 Plt Count 132 X10^3/uL (150.0-450.0) L 09/07/18 05:08 MPV 12.6 fL (7.4-11.0) H 09/07/18 05:08 Neut % (Auto) 67.3 % (42.0-75.0) 09/07/18 05:08 Lymph % (Auto) 12.9 % (21.0-51.0) L 09/07/18 05:08 [place] % (Auto) 16.6 % (0.0-13.0) H 09/07/18 05:08 Eos % (Auto) 2.6 % (0.9-2.9) 09/07/18 05:08 Baso % (Auto) 0.6 % (0.2-1.0) 09/07/18 05:08 Neut # (Auto) 3.9 x10^3/uL (2.2-4.8) 09/07/18 05:08 Lymph # (Auto) 0.7 X10^3/uL (1.3-2.9) L 09/07/18 05:08 [place] # (Auto) 1.0 x10^3/uL (0.3-0.8) H 09/07/18 05:08 Eos # (Auto) 0.2 x10^3/uL (0.0-0.2) 09/07/18 05:08 Baso # (Auto) 0.0 X10^3/uL (0.0-0.1) 09/07/18 05:08 Absolute Nucleated RBC 0.0 /100WBC 09/07/18 05:08 Sodium 140 mmol/L (136-145) 09/07/18 05:08 Corrected Sodium TNP 09/07/18 05:08 Potassium 4.3 mmol/L (3.5-5.1) 09/07/18 05:08 Chloride 101 mmol/L (98-107) 09/07/18 05:08 Carbon Dioxide 32.4 mmol/L (21-32) H 09/07/18 05:08 BUN 19 mg/dL (7-18) H 09/07/18 05:08 Creatinine 1.22 mg/dL (0.55-1.02) H 09/07/18 05:08 Est GFR (MDRD) Af Amer 54 (>60) L 09/07/18 05:08 Est GFR (MDRD) Non-Af 45 (>60) L 09/07/18 05:08 Glucose 105 mg/dL (65-99) H 09/07/18 05:08 Calcium 8.8 mg/dL (8.5-10.1) 09/07/18 05:08 Corrected Calcium 9.5 mg/dL (8.5-10.1) 09/07/18 05:08 Total Bilirubin 2.20 mg/dL (0.2-1.0) H 09/07/18 05:08 AST 440 Units/L (15-37) H 09/07/18 05:08 ALT 338 Units/L (12-78) H 09/07/18 05:08 Alkaline Phosphatase 226 Units/L (46-116) H 09/07/18 05:08 Total Protein 6.9 g/dL (6.4-8.2) 09/07/18 05:08 Albumin 3.1 g/dL (3.4-5.0) L 09/07/18 05:08 Globulin 3.8 g/dL (2.5-4.5) 09/07/18 05:08 Albumin/Globulin Ratio 0.8 Ratio (1.1-2.1) L 09/07/18 05:08 Triglycerides 77 mg/dL (0-150) 09/07/18 05:08 Cholesterol 151 mg/dL (0-200) 09/07/18 05:08 LDL Cholesterol, Calc 89 mg/dL (0-100) 09/07/18 05:08 HDL Cholesterol 47 mg/dL (40-60) 09/07/18 05:08 Cholesterol/HDL Ratio 3.2 (0.0-5.0) 09/07/18 05:08 Amylase 98 Units/L (25-115) 09/06/18 14:46 Lipase 114 Units/L (73-393) 09/06/18 14:46 Specimen Type Clean catch urine 09/06/18 18:00 Urine Color Yellow (YELLOW) 09/06/18 18:00 Urine Appearance Clear (CLEAR) 09/06/18 18:00 Urine pH 6.0 (5.0 - 8.0) 09/06/18 18:00 Ur Specific [place] 1.010 (1.000-1.030) 09/06/18 18:00 Urine Protein Negative (NEGATIVE) 09/06/18 18:00 Urine Glucose (UA) Negative (NEGATIVE) 09/06/18 18:00 Urine Ketones Negative (NEGATIVE) 09/06/18 18:00 Urine Occult Blood Negative (NEGATIVE) 09/06/18 18:00 Urine Nitrite Negative (NEGATIVE) 09/06/18 18:00 Urine Bilirubin Negative (NEGATIVE) 09/06/18 18:00 Urine Urobilinogen Normal (NORMAL) 09/06/18 18:00 Ur Leukocyte Esterase Negative (NEGATIVE) 09/06/18 18:00 - Plan (1) Compression fracture Status: Acute Plan: IV PAIN CONTROL. PT CONSULT. VERIFY HOME MEDICATION, AM LABS. RESP CONSULT, CXR. IV ROCEPHIN 1GM DAILY (2) Acute bronchitis Status: Acute (3) Fall Status: Acute (4) Intractable pain Status: Acute (5) HTN (hypertension) Status: Chronic
[2018-09-07] MEDS: ROBITUSSIN DM PO PRN (14:05)
[2018-09-07] MEDS: LOVENOX INJ 40 MG SYR SC SCH (14:09)
--- NOTE | 2018-09-07 15:37 | RAD ---
HISTORY: Cough. Shortness of breath. Breast cancer. Study: AP portable chest Comparison: 09/02/2016 Findings: Mild atelectatic change/infiltrate and effusion is noted on the left. Low volume inspiration noted. The heart size is borderline enlarged. Widening of the mediastinum is noted, predominating on the right. A smooth impression is present on the right side of the trachea suggesting possible thyroid enlargement. Surgical clips are present in the left axilla consistent with axillary node dissection. Evidence for previous vertebroplasty is noted in the lower thoracic/upper lumbar spine. IMPRESSION: 1. Mild atelectatic change/infiltrate the left lung base with minimal effusion. 2. Widened mediastinum, most likely due to thyroid enlargement . This is been previously demonstrated on a CT scan of the chest from 07/14/2016. Reported By:
[2018-09-07] MEDS: LYRICA CAP 150 MG PO SCH (20:09)
[2018-09-07] MEDS: COLACE CAP 100 MG PO SCH (20:09)
[2018-09-07] MEDS: MIRALAX POWDER (1 DOSE 17 G) PO SCH (20:09)
[2018-09-07] MEDS: PriLOSEC PO SCH (20:10)
[2018-09-08] MEDS: MORPHINE SULFATE INJ 2 MG INJ IVP SCH ×3 (01:53→20:00)
[2018-09-08 05:39] LABS: BASOPHILS % (AUTO) 0.4 % (0.2-1.0); EOSINOPHILS # (AUTO) 0.1 x10^3/uL (0.0-0.2); EOSINOPHILS % (AUTO) 2.4 % (0.9-2.9); HEMATOCRIT 40.6 % (36.0-47.0); HEMOGLOBIN 13.5 g/dL (12.0-16.0); LYMPHOCYTES # (AUTO) 0.8 X10^3/uL (1.3-2.9); LYMPHOCYTES % (AUTO) 17.1 % (21.0-51.0); MEAN CORPUSCULAR HEMOGLOBIN 31.2 pg (27.0-34.0); MEAN CORPUSCULAR HGB CONC 33.3 g/dL (33.0-35.0); MEAN CORPUSCULAR VOLUME 93.9 fL (80.0-100.0); MEAN PLATELET VOLUME 12.4 fL (7.4-11.0); MONOCYTES # (AUTO) 0.8 x10^3/uL (0.3-0.8); MONOCYTES % (AUTO) 16.7 % (0.0-13.0); NEUTROPHILS # (AUTO) 3.1 x10^3/uL (2.2-4.8); NEUTROPHILS % (AUTO) 63.4 % (42.0-75.0); PLATELET COUNT 108 X10^3/uL (150.0-450.0); RED BLOOD COUNT 4.33 X10^6/uL (3.5-5.4); RED CELL DISTRIBUTION WIDTH 13.5 % (11.6-16.5); WHITE BLOOD COUNT 4.9 X10^3/uL (3.6-10.0)
[2018-09-08 05:42] LABS: ALANINE AMINOTRANSFERASE 301 Units/L (12-78); ALBUMIN 2.8 g/dL (3.4-5.0); ALKALINE PHOSPHATASE 277 Units/L (46-116); ASPARTATE AMINO TRANSFERASE 277 Units/L (15-37); BLOOD UREA NITROGEN 19 mg/dL (7-18); CALCIUM 8.2 mg/dL (8.5-10.1); CARBON DIOXIDE 29.3 mmol/L (21-32); CHLORIDE 103 mmol/L (98-107); COR CA(FOR HYPOALB) 9.2 mg/dL (8.5-10.1); CREATININE 1.11 mg/dL (0.55-1.02); SODIUM 137 mmol/L (136-145); TOTAL PROTEIN 6.4 g/dL (6.4-8.2); eGFR NON BLACK RACES 50 (>60)
[2018-09-08] MEDS: MORPHINE SULFATE INJ 2 MG INJ IVP PRN (05:46)
--- NOTE | 2018-09-08 08:17 | US ---
HISTORY: Right upper quadrant pain, elevated LFTs. Prior history hypertension, cholecystectomy, hysterectomy and mastectomy. Study: Ultrasound of the liver Comparison: CT scan of the abdomen and pelvis done 09/03/2016. Technique: Grayscale, color and duplex Doppler evaluation of the liver is provided. Findings: The gallbladder is surgically absent. Pancreas and right kidney are normal. Liver is normal in size. No evidence of steatosis or mass is seen. The common bile duct measures 3.4 mm in diameter. Doppler studies of portal vein, hepatic vein and hepatic artery are all normal. IMPRESSION: Surgically absent gallbladder. Normal ultrasound of the liver with Doppler studies. Reported By:
[2018-09-08] MEDS: PULMICORT NEB TX 0.5 MG NEB SCH ×2 (08:29→20:14)
[2018-09-08] MEDS: DUONEB 0.5 MG/3 MG NEB SCH ×4 (08:29→21:04)
[2018-09-08] MEDS: WELLBUTRIN XL 150 MG (DAILY) PO SCH (08:46)
[2018-09-08] MEDS: K-DUR TAB 20 MEQ PO SCH (08:46)
[2018-09-08] MEDS: INDERAL TAB 10 MG PO SCH ×2 (08:46→20:30)
[2018-09-08] MEDS: ALDACTONE TAB 25 MG PO SCH (08:46)
[2018-09-08] MEDS: ROCEPHIN VIAL 1 GRAM IVP SCH (08:46)
[2018-09-08] MEDS: ZANTAC PO SCH (08:47)
[2018-09-08] MEDS: LASIX PO SCH (08:47)
[2018-09-08] MEDS: ROBITUSSIN DM PO PRN (08:47)
[2018-09-08] MEDS: MILK OF MAGNESIA PO SCH (08:47)
[2018-09-08] MEDS: LOVENOX INJ 40 MG SYR SC SCH (08:47)
[2018-09-08] MEDS: CYMBALTA PO SCH (08:49)
--- NOTE | 2018-09-08 12:56 | PCM.PROG ---
Progress Note - Progress Note for Day of Date of Exam: 09/08/18 - Subjective Subjective: 83 WF ER ADMISSION ON 09/06 WITH CO FALL WITH INSTRACTABLE BACK PAIN. PT HAS Nondisplaced fractures involving the inferior/posterior endplate of T10 andadditional nondisplaced fractures through the bilateral pedicles of T11. PT IS CURRENTLY ON PAIN CONTROL WITH PT CONSULT, RESP CONSULT AND CXR FOR BRONCHITIS PT HAS INCREASED LFT'S WITH NORMAL LIVER US. PT IS NOT CURRENTLY ON A STATIN. CONSULTED PHARMACY FOR POSSIBLE MEDICATION INDUCED ELEVATED LFT'S. PT CONSULTED WITH BILATERAL LOWER EXPIRATORY WHEEZES, NON PRODUCTIVE COUGH. PT STARTED ON BUDESONIDE AND ROCEPHIN, DUO NEBS AND SPUTUM CULTURE ORDERED. WILL CONTINUE PAIN CONTROL AND PT. - Past Medical Family Social History Past Med/Fam/Surg Hx: No changes since H&P Allergies: Allergies Penicillins Allergy (Verified 09/06/18 14:14) RASH - Review of Systems ROS: No change since H&P - Vital Signs and I&O's Vital Signs: Temperature 98.0 F Pulse Rate [Right Brachial] 80 Pulse Rate 47 Respiratory Rate 18 Blood Pressure [Right Arm] 113/57 Blood Pressure [Right Calf] 116/66 Blood Pressure [Left Arm] 89/59 Blood Pressure 142/77 O2 Sat by Pulse Oximetry 97 Intake and Output: Intake & Output 09/06/18 09/07/18 09/08/18 09/09/18 11:59 11:59 11:59 11:59 Intake Total 1175 / 1175 2030 Balance 1175 / 1175 2030 - Physical Exam Oriented: Normal Eyes: Normal Ear: Normal Nose: Normal Throat: Normal Respiratory: Diminished Cardiovascular: Normal : Normal Auscultation: Bowel Sounds: Normal Tenderness: RUQ Skin: Decreased Turgur Musculoskeletal: Back:Thoracic, Back:Lumbar, Tender, Instability Psychiatric: Anxiety Affect: Anxious Speech Pattern: Clear, Appropriate - Laboratory and Diagnostics Result Diagrams: 09/08/18 05:20 09/08/18 05:20 Labs: Laboratory WBC 4.9 X10^3/uL (3.6-10.0) 09/08/18 05:20 RBC 4.33 X10^6/uL (3.5-5.4) 09/08/18 05:20 Hgb 13.5 g/dL (12.0-16.0) 09/08/18 05:20 Hct 40.6 % (36.0-47.0) 09/08/18 05:20 MCV 93.9 fL (80.0-100.0) 09/08/18 05:20 MCH 31.2 pg (27.0-34.0) 09/08/18 05:20 MCHC 33.3 g/dL (33.0-35.0) 09/08/18 05:20 RDW 13.5 % (11.6-16.5) 09/08/18 05:20 Plt Count 108 X10^3/uL (150.0-450.0) L 09/08/18 05:20 MPV 12.4 fL (7.4-11.0) H 09/08/18 05:20 Neut % (Auto) 63.4 % (42.0-75.0) 09/08/18 05:20 Lymph % (Auto) 17.1 % (21.0-51.0) L 09/08/18 05:20 [place] % (Auto) 16.7 % (0.0-13.0) H 09/08/18 05:20 Eos % (Auto) 2.4 % (0.9-2.9) 09/08/18 05:20 Baso % (Auto) 0.4 % (0.2-1.0) 09/08/18 05:20 Neut # (Auto) 3.1 x10^3/uL (2.2-4.8) 09/08/18 05:20 Lymph # (Auto) 0.8 X10^3/uL (1.3-2.9) L 09/08/18 05:20 [place] # (Auto) 0.8 x10^3/uL (0.3-0.8) 09/08/18 05:20 Eos # (Auto) 0.1 x10^3/uL (0.0-0.2) 09/08/18 05:20 Baso # (Auto) 0.0 X10^3/uL (0.0-0.1) 09/08/18 05:20 Absolute Nucleated RBC 0.1 /100WBC 09/08/18 05:20 Sodium 137 mmol/L (136-145) 09/08/18 05:20 Corrected Sodium TNP 09/08/18 05:20 Potassium 4.4 mmol/L (3.5-5.1) 09/08/18 05:20 Chloride 103 mmol/L (98-107) 09/08/18 05:20 Carbon Dioxide 29.3 mmol/L (21-32) 09/08/18 05:20 BUN 19 mg/dL (7-18) H 09/08/18 05:20 Creatinine 1.11 mg/dL (0.55-1.02) H 09/08/18 05:20 Est GFR (MDRD) Af Amer > 60 (>60) 09/08/18 05:20 Est GFR (MDRD) Non-Af 50 (>60) L 09/08/18 05:20 Glucose 107 mg/dL (65-99) H 09/08/18 05:20 Calcium 8.2 mg/dL (8.5-10.1) L 09/08/18 05:20 Corrected Calcium 9.2 mg/dL (8.5-10.1) 09/08/18 05:20 Total Bilirubin 2.30 mg/dL (0.2-1.0) H 09/08/18 05:20 AST 277 Units/L (15-37) H 09/08/18 05:20 ALT 301 Units/L (12-78) H 09/08/18 05:20 Alkaline Phosphatase 277 Units/L (46-116) H 09/08/18 05:20 Total Protein 6.4 g/dL (6.4-8.2) 09/08/18 05:20 Albumin 2.8 g/dL (3.4-5.0) L 09/08/18 05:20 Globulin 3.6 g/dL (2.5-4.5) 09/08/18 05:20 Albumin/Globulin Ratio 0.8 Ratio (1.1-2.1) L 09/08/18 05:20 Triglycerides 77 mg/dL (0-150) 09/07/18 05:08 Cholesterol 151 mg/dL (0-200) 09/07/18 05:08 LDL Cholesterol, Calc 89 mg/dL (0-100) 09/07/18 05:08 HDL Cholesterol 47 mg/dL (40-60) 09/07/18 05:08 Cholesterol/HDL Ratio 3.2 (0.0-5.0) 09/07/18 05:08 Amylase 98 Units/L (25-115) 09/06/18 14:46 Lipase 114 Units/L (73-393) 09/06/18 14:46 Specimen Type Clean catch urine 09/06/18 18:00 Urine Color Yellow (YELLOW) 09/06/18 18:00 Urine Appearance Clear (CLEAR) 09/06/18 18:00 Urine pH 6.0 (5.0 - 8.0) 09/06/18 18:00 Ur Specific [place] 1.010 (1.000-1.030) 09/06/18 18:00 Urine Protein Negative (NEGATIVE) 09/06/18 18:00 Urine Glucose (UA) Negative (NEGATIVE) 09/06/18 18:00 Urine Ketones Negative (NEGATIVE) 09/06/18 18:00 Urine Occult Blood Negative (NEGATIVE) 09/06/18 18:00 Urine Nitrite Negative (NEGATIVE) 09/06/18 18:00 Urine Bilirubin Negative (NEGATIVE) 09/06/18 18:00 Urine Urobilinogen Normal (NORMAL) 09/06/18 18:00 Ur Leukocyte Esterase Negative (NEGATIVE) 09/06/18 18:00 - Plan (1) Compression fracture Status: Acute Plan: IV PAIN CONTROL. PT CONSULT. VERIFY HOME MEDICATION, AM LABS. RESP CONSULT, CXR. IV ROCEPHIN 1GM DAILY (2) Acute bronchitis Status: Acute (3) Fall Status: Acute (4) Intractable pain Status: Acute (5) HTN (hypertension) Status: Chronic (6) Elevated LFTs Status: Acute
[2018-09-08] MEDS: NS 1000 ML 1,000 ML IV SCH ×2 (16:12→23:26)
[2018-09-08] MEDS: LYRICA CAP 150 MG PO SCH (20:30)
[2018-09-08] MEDS: COLACE CAP 100 MG PO SCH (20:30)
[2018-09-08] MEDS: MIRALAX POWDER (1 DOSE 17 G) PO SCH (20:31)
[2018-09-08] MEDS: PriLOSEC PO SCH (20:31)
[2018-09-09] MEDS: MORPHINE SULFATE INJ 2 MG INJ IVP SCH ×3 (04:51→21:22)
[2018-09-09] MEDS: DUONEB 0.5 MG/3 MG NEB SCH ×3 (05:36→21:00)
[2018-09-09 05:57] LABS: BASOPHILS % (AUTO) 0.3 % (0.2-1.0); EOSINOPHILS # (AUTO) 0.1 x10^3/uL (0.0-0.2); EOSINOPHILS % (AUTO) 2.6 % (0.9-2.9); HEMATOCRIT 39.2 % (36.0-47.0); HEMOGLOBIN 13.2 g/dL (12.0-16.0); LYMPHOCYTES # (AUTO) 0.6 X10^3/uL (1.3-2.9); LYMPHOCYTES % (AUTO) 11.5 % (21.0-51.0); MEAN CORPUSCULAR HEMOGLOBIN 31.2 pg (27.0-34.0); MEAN CORPUSCULAR HGB CONC 33.6 g/dL (33.0-35.0); MEAN CORPUSCULAR VOLUME 92.8 fL (80.0-100.0); MONOCYTES # (AUTO) 0.7 x10^3/uL (0.3-0.8); NEUTROPHILS % (AUTO) 72.6 % (42.0-75.0); PLATELET COUNT 110 X10^3/uL (150.0-450.0); RED BLOOD COUNT 4.22 X10^6/uL (3.5-5.4); RED CELL DISTRIBUTION WIDTH 13.7 % (11.6-16.5); WHITE BLOOD COUNT 5.5 X10^3/uL (3.6-10.0)
[2018-09-09 06:02] LABS: PLATELET MORPHOLOGY COMMENT NORMAL (NORMAL)
[2018-09-09 06:16] LABS: ALANINE AMINOTRANSFERASE 215 Units/L (12-78); ALBUMIN 2.8 g/dL (3.4-5.0); ALKALINE PHOSPHATASE 243 Units/L (46-116); ASPARTATE AMINO TRANSFERASE 121 Units/L (15-37); BLOOD UREA NITROGEN 13 mg/dL (7-18); CALCIUM 7.9 mg/dL (8.5-10.1); CARBON DIOXIDE 28.7 mmol/L (21-32); CHLORIDE 104 mmol/L (98-107); COR CA(FOR HYPOALB) 8.9 mg/dL (8.5-10.1); CREATININE 0.98 mg/dL (0.55-1.02); SODIUM 138 mmol/L (136-145); TOTAL PROTEIN 6.5 g/dL (6.4-8.2); eGFR NON BLACK RACES 58 (>60)
[2018-09-09] MEDS: NS 1000 ML 1,000 ML IV SCH ×2 (06:59→13:30)
[2018-09-09] MEDS: MORPHINE SULFATE INJ 2 MG INJ IVP PRN (06:59)
[2018-09-09 08:57] LABS: FREE T4 (FREE THYROXINE) 1.55 ng/dL (0.76-1.46); TSH (3RD GENERATION) 0.272 uIU/mL (0.358-3.74)
[2018-09-09] MEDS: ALDACTONE TAB 25 MG PO SCH (09:27)
[2018-09-09] MEDS: WELLBUTRIN XL 150 MG (DAILY) PO SCH (09:27)
[2018-09-09] MEDS: CYMBALTA PO SCH (09:27)
[2018-09-09] MEDS: K-DUR TAB 20 MEQ PO SCH (09:27)
[2018-09-09] MEDS: ZANTAC PO SCH (09:27)
[2018-09-09] MEDS: LASIX PO SCH (09:28)
[2018-09-09] MEDS: ROCEPHIN VIAL 1 GRAM IVP SCH (09:30)
[2018-09-09] MEDS: MILK OF MAGNESIA PO SCH (09:30)
[2018-09-09] MEDS: INDERAL TAB 10 MG PO SCH ×2 (09:31→21:21)
--- NOTE | 2018-09-09 09:36 | PCM.PROG ---
Addendum entered and electronically signed by MIRA NORRIS 09/09/18 16:39: ct abd/pelvis with contrast revealed chance fracture to t10/t11. MRI of T/L ordered, solu medrol iv, Neuro exam without hyper reflexes, no diminished sensation. Original Note: Progress Note - Progress Note for Day of Date of Exam: 09/09/18 - Subjective Subjective: 83 WF ER ADMISSION ON 09/06 WITH CO FALL WITH INSTRACTABLE BACK PAIN. PT HAS Nondisplaced fractures involving the inferior/posterior endplate of T10 andadditional nondisplaced fractures through the bilateral pedicles of T11. PT IS CURRENTLY ON PAIN CONTROL WITH PT CONSULT, RESP CONSULT AND CXR FOR B RONCHITIS PT HAS INCREASED LFT'S WITH NORMAL LIVER US. PT IS NOT CURRENTLY ON A STATIN. CONSULTED PHARMACY FOR POSSIBLE MEDICATION INDUCED ELEVATED LFT'S. PT IS TOLERATING DUO NEBS, WITH IMPROVED COUGH THIS AM. PT CONTINUES TO CO RIGHT UPPER ABDOMINAL PAIN. WILL OBTAIN C T ABD/PELVIS DUE TO PT'S HX OF BREAST MALIGNACY. PLAN TO D/C WITH IN HOME PT AND CONSULT ORTHO FOR COMPRESSION FRACTURE. - Past Medical Family Social History Past Med/Fam/Surg Hx: No changes since H&P Allergies: Allergies Penicillins Allergy (Verified 09/06/18 14:14) RASH - Review of Systems ROS: No change since H&P - Vital Signs and I&O's Vital Signs: Temperature 97.6 F Pulse Rate [Right Brachial] 80 Pulse Rate 51 Respiratory Rate 17 Blood Pressure [Right Arm] 100/53 Blood Pressure [Right Calf] 116/66 Blood Pressure [Left Arm] 89/59 Blood Pressure 142/77 O2 Sat by Pulse Oximetry 96 Intake and Output: Intake & Output 09/06/18 09/07/18 09/08/18 09/09/18 11:59 11:59 11:59 11:59 Intake Total 1175 / 1175 2030 Balance 1175 / 1175 2030 - Physical Exam Oriented: Normal Eyes: Normal Ear: Normal Nose: Normal Throat: Normal Respiratory: Diminished Cardiovascular: Normal : Normal Auscultation: Bowel Sounds: Normal Tenderness: RUQ Skin: Decreased Turgur Musculoskeletal: Back:Thoracic, Back:Lumbar, Tender, Instability Psychiatric: Anxiety Affect: Anxious Speech Pattern: Clear, Appropriate - Laboratory and Diagnostics Result Diagrams: 09/09/18 05:40 09/09/18 05:40 Labs: Laboratory WBC 5.5 X10^3/uL (3.6-10.0) 09/09/18 05:40 RBC 4.22 X10^6/uL (3.5-5.4) 09/09/18 05:40 Hgb 13.2 g/dL (12.0-16.0) 09/09/18 05:40 Hct 39.2 % (36.0-47.0) 09/09/18 05:40 MCV 92.8 fL (80.0-100.0) 09/09/18 05:40 MCH 31.2 pg (27.0-34.0) 09/09/18 05:40 MCHC 33.6 g/dL (33.0-35.0) 09/09/18 05:40 RDW 13.7 % (11.6-16.5) 09/09/18 05:40 Plt Count 110 X10^3/uL (150.0-450.0) L 09/09/18 05:40 Plt Count Comment Adequate (ADEQUATE) 09/09/18 05:40 MPV 12.0 fL (7.4-11.0) H 09/09/18 05:40 Neut % (Auto) 72.6 % (42.0-75.0) 09/09/18 05:40 Lymph % (Auto) 11.5 % (21.0-51.0) L 09/09/18 05:40 [place] % (Auto) 13.0 % (0.0-13.0) 09/09/18 05:40 Eos % (Auto) 2.6 % (0.9-2.9) 09/09/18 05:40 Baso % (Auto) 0.3 % (0.2-1.0) 09/09/18 05:40 Neut # (Auto) 4.0 x10^3/uL (2.2-4.8) 09/09/18 05:40 Lymph # (Auto) 0.6 X10^3/uL (1.3-2.9) L 09/09/18 05:40 [place] # (Auto) 0.7 x10^3/uL (0.3-0.8) 09/09/18 05:40 Eos # (Auto) 0.1 x10^3/uL (0.0-0.2) 09/09/18 05:40 Baso # (Auto) 0.0 X10^3/uL (0.0-0.1) 09/09/18 05:40 Absolute Nucleated RBC 0.0 /100WBC 09/09/18 05:40 Plt Morphology Comment Normal (NORMAL) 09/09/18 05:40 RBC Morphology Normal (NORMAL) 09/09/18 05:40 Sodium 138 mmol/L (136-145) 09/09/18 05:40 Corrected Sodium TNP 09/09/18 05:40 Potassium 4.5 mmol/L (3.5-5.1) 09/09/18 05:40 Chloride 104 mmol/L (98-107) 09/09/18 05:40 Carbon Dioxide 28.7 mmol/L (21-32) 09/09/18 05:40 BUN 13 mg/dL (7-18) 09/09/18 05:40 Creatinine 0.98 mg/dL (0.55-1.02) 09/09/18 05:40 Est GFR (MDRD) Af Amer > 60 (>60) 09/09/18 05:40 Est GFR (MDRD) Non-Af 58 (>60) L 09/09/18 05:40 Glucose 95 mg/dL (65-99) 09/09/18 05:40 Calcium 7.9 mg/dL (8.5-10.1) L 09/09/18 05:40 Corrected Calcium 8.9 mg/dL (8.5-10.1) 09/09/18 05:40 Total Bilirubin 0.60 mg/dL (0.2-1.0) 09/09/18 05:40 AST 121 Units/L (15-37) H 09/09/18 05:40 ALT 215 Units/L (12-78) H 09/09/18 05:40 Alkaline Phosphatase 243 Units/L (46-116) H 09/09/18 05:40 Total Protein 6.5 g/dL (6.4-8.2) 09/09/18 05:40 Albumin 2.8 g/dL (3.4-5.0) L 09/09/18 05:40 Globulin 3.7 g/dL (2.5-4.5) 09/09/18 05:40 Albumin/Globulin Ratio 0.8 Ratio (1.1-2.1) L 09/09/18 05:40 Triglycerides 77 mg/dL (0-150) 09/07/18 05:08 Cholesterol 151 mg/dL (0-200) 09/07/18 05:08 LDL Cholesterol, Calc 89 mg/dL (0-100) 09/07/18 05:08 HDL Cholesterol 47 mg/dL (40-60) 09/07/18 05:08 Cholesterol/HDL Ratio 3.2 (0.0-5.0) 09/07/18 05:08 Amylase 98 Units/L (25-115) 09/06/18 14:46 Lipase 114 Units/L (73-393) 09/06/18 14:46 Free T4 1.55 ng/dL (0.76-1.46) H 09/09/18 05:40 TSH 3rd Generation 0.272 uIU/mL (0.358-3.74) L 09/09/18 05:40 Specimen Type Clean catch urine 09/06/18 18:00 Urine Color Yellow (YELLOW) 09/06/18 18:00 Urine Appearance Clear (CLEAR) 09/06/18 18:00 Urine pH 6.0 (5.0 - 8.0) 09/06/18 18:00 Ur Specific [place] 1.010 (1.000-1.030) 09/06/18 18:00 Urine Protein Negative (NEGATIVE) 09/06/18 18:00 Urine Glucose (UA) Negative (NEGATIVE) 09/06/18 18:00 Urine Ketones Negative (NEGATIVE) 09/06/18 18:00 Urine Occult Blood Negative (NEGATIVE) 09/06/18 18:00 Urine Nitrite Negative (NEGATIVE) 09/06/18 18:00 Urine Bilirubin Negative (NEGATIVE) 09/06/18 18:00 Urine Urobilinogen Normal (NORMAL) 09/06/18 18:00 Ur Leukocyte Esterase Negative (NEGATIVE) 09/06/18 18:00 - Plan (1) Compression fracture Status: Acute Plan: IV PAIN CONTROL. PT CONSULT. VERIFY HOME MEDICATION, AM LABS. RESP CONSULT, CXR. IV ROCEPHIN 1GM DAILY (2) Acute bronchitis Status: Acute (3) Fall Status: Acute (4) Intractable pain Status: Acute (5) HTN (hypertension) Status: Chronic (6) Elevated LFTs Status: Acute
[2018-09-09] MEDS ORDERED: NS 100 ML IV 100 ML ONE (12:34)
--- NOTE | 2018-09-09 13:44 | US ---
HISTORY: Enlarged thyroid Study: Ultrasound of the thyroid Comparison: No priors Technique: Grayscale and color Doppler evaluation of the thyroid gland is provided. Findings: Right thyroid gland is enlarged measuring 2.5 x 3.6 x 5 cm. There is a dominant solid isoechoic nodule present involving the midpole region of the right thyroid. This is wider than tall and displays smooth margins. A few punctate echogenic calcifications are present. The nodule measures up to 2.5 cm in diameter. This nodule represents aTI-RADS TR 4 nodule. Due to its size greater than 1.5 cm, this should be considered for ultrasound-guided FNA biopsy. Other, smaller solid nodules are present involving both thyroid lobes which do not meet criteria for biopsy at this time. Multiple cysts are present bilaterally also. Isthmus is normal in thickness measuring 1.7 mm. Left thyroid lobe measures 1.8 x 2.1 x 3.4 cm. No evidence of adenopathy is seen. IMPRESSION: Dominant nodule in the right mid thyroid pole. This represents a TI-RADS TR 4 nodule. Since this measures up to 2.5 cm in diameter, this should be considered for ultrasound-guided FNA biopsy. The right thyroid lobe is enlarged. Reported By:
--- NOTE | 2018-09-09 14:23 | CT ---
HISTORY: Abdominal pain Study: CT abdomen and pelvis with contrast Comparison: 09/03/2016 Technique: Multiple axial images of the abdomen and pelvis were obtained from the lung bases to the pubic symphysis after the administration of IV contrast. Findings: There is a small dependent right-sided pleural effusion with associated enhancing passive atelectasis. A trace left-sided pleural effusion is observed and there is compressive atelectasis of the left lung base. No significant pericardial effusion is identified. Question prior fundoplication procedure at the gastroesophageal junction versus small paraesophageal hiatal hernia. Liver attenuation is predominantly homogeneous. Gallbladder is surgically absent. There is mild dilatation of the common bile duct and central intrahepatic biliary confluence following cholecystectomy which is stable from prior exams and most likely due to reservoir effect. The common bile duct diameter is 9.4 mm. No acute abnormalities of the spleen, pancreas, or bilateral adrenal glands. The kidneys enhance in a timely fashion, with no evidence of hydronephrosis. The aorta caliber is normal. Scattered atherosclerotic plaque is seen within the wall of the abdominal aorta. No pathologically enlarged central mesenteric, portal caval, or retroperitoneal lymphadenopathy. The bowel gas pattern is nonobstructive. Locally concentrated diverticulosis of the sigmoid colon is observed, with no findings of acute diverticulitis. No acutely inflamed large or small bowel segments are demonstrated. There is no evidence of free air or free fluid. The uterus is surgically absent. There is no asymmetric bladder wall thickening. No free fluid or pelvic lymphadenopathy is identified. Review of bone windows demonstrates no aggressive bony lesions. Severe generalized osteopenia is observed. Multiple remote compression deformities are noted within the lower thoracic and upper lumbar spine and the patient is status post vertebroplasty at multiple levels which includes the levels of T11 through L3. There is a fracture through the inferior endplate Of the T10 vertebral body, and the fracture line is contiguous with the left and right superior articular facet of the T11 vertebral body (more conspicuous on the left). There is fragmentation of the posterior inferior corner of the T10 vertebral body. Moderate to severe height loss of the T11, T12 and L1 vertebral bodies is observed.. There is kyphosis of the thoracolumbar junction. Posterior retropulsion at the T12-L1 level contributes to critical spinal stenosis. There is an age-indeterminate fracture of the left posterior 12th rib which may be subacute to chronic in age. IMPRESSION: Possible acute to early subacute fracture horizontally oriented through the inferior endplate of the T10 vertebral body. There is avulsion of the left posterior inferior corner of the T10 vertebral body and this horizontal fracture is along the same plane and is contiguous with fracture through the superior articular facets of the T11 vertebral bodies. This is more conspicuous on the left. This fracture is within the spectrum of a Chance fracture. There is associated prevertebral soft tissue swelling at this level, indicating that this may be acute. This fracture may be associated with neurologic dysfunction and/or cord injury and is considered unstable. Follow-up with dedicated imaging of the lumbar spine would be beneficial. If the patient is a candidate for MRI, this would be useful for further evaluation of the cord. Other chronic compression fractures from the levels of T11 through L3, status post vertebroplasty, with marked kyphosis of the thoracolumbar junction. Critical spinal stenosis at T12-L1 secondary to retropulsion. Please see above for details. No acute intra-abdominal or pelvic inflammatory process is identified. Small dependent bilateral pleural effusions with associated passive atelectasis, right greater than left Severe sigmoid diverticulosis with no findings of acute diverticulitis Other chronic and incidental findings as discussed above. Reported By:
[2018-09-09] MEDS: PULMICORT NEB TX 0.5 MG NEB SCH ×2 (14:45→21:00)
[2018-09-09] MEDS: SOLU-Medrol 40 MG VIAL IVP SCH ×2 (17:16→21:21)
[2018-09-09] MEDS: CITRACAL + VITAMIN D PO SCH ×2 (18:26→21:21)
[2018-09-09] MEDS: PriLOSEC PO SCH (21:20)
[2018-09-09] MEDS: LYRICA CAP 150 MG PO SCH (21:20)
[2018-09-09] MEDS: COLACE CAP 100 MG PO SCH (21:21)
[2018-09-09] MEDS: MIRALAX POWDER (1 DOSE 17 G) PO SCH (21:21)
--- NOTE | 2018-09-09 22:40 | MRI ---
HISTORY: Compression fracture of T10 and T11, low back pain from recent fall Study: MRI lumbar spine without contrast. Comparison: Lumbar spine MRI July 21, 2016, lumbar spine CT July 18, 2016 Technique: Multiplanar multi-sequence MRI of the lumbar spine was obtained. Sagittal T1, sagittal T2, and stir weighted images, axial T1, and axial T2 images were obtained. Field of view was expanded to include the lower lumbar spine. Findings: No significant vertebral body height loss involving T10, however there is linear stir hyperintensity/T1 hypointensity involving the left aspect of the inferior T10 endplate. Reversal of the normal lumbar lordosis with kyphosis centered at the T11 through L1 vertebral bodies secondary to significant anterior wedge compression fractures. There is been interval kyphoplasty changes at T11 through L2. T11 demonstrates at least 60% vertebral body height loss. T12 and L1 demonstrates at least 75% vertebral body height loss. These findings are grossly stable when compared to previous CT. No definite abnormal signal within the T10 through S1 vertebral bodies. No abnormal intrinsic cord signal. Right pleural effusion. Scant left pleural effusion. Stable subcentimeter hemorrhagic cyst on the left. Bilateral renal cysts. T9-T10: Decreased disc space height with diffuse disc bulge. No significant spinal canal or neural foraminal stenosis. T10-T11: Degenerative endplate changes. No significant spinal canal stenosis. Likely at least moderate bilateral neural foraminal stenosis. T11-T12: Chronic wedge compression deformities. Mild to moderate spinal canal stenosis in this region is relatively stable when compared to prior. Moderate to severe bilateral neural foraminal stenosis. T12-L1: Chronic wedge compression deformities. Mild posterior displacement of the vertebral bodies creates moderate to severe spinal canal stenosis in this region. Bilateral facet arthropathy. Moderate to severe bilateral neural foraminal stenosis. L1 -- L2: Broad-based disc bulge. Facet joint arthropathy and ligamentum flavum thickening. Moderate bilateral neural foraminal stenosis. No significant spinal canal stenosis. L2 -- L3: Broad-based disc bulge. Facet joint arthropathy and ligamentum flavum thickening. Prominent epidural fat. Moderate spinal canal stenosis with severe left and moderate right neural foraminal stenosis. L3 -- L4: Broad-based disc bulge. Facet joint arthropathy and ligamentum flavum thickening. Prominent epidural fat. Moderate spinal canal stenosis with severe left and moderate right neural foraminal stenosis. L4 -- L5: Broad-based disc bulge. Facet joint arthropathy and ligamentum flavum thickening. Moderate left and severe right neural foraminal stenosis. No significant spinal canal stenosis. L5 -- S1: Mild broad-based disc bulge. Facet joint arthropathy and ligamentum flavum thickening. No significant neural foraminal or spinal canal stenosis. IMPRESSION: No significant vertebral body height loss involving T10, however there is linear stir hyperintensity/T1 hypointensity involving the left aspect of the inferior T10 endplate. These likely reflect evolving acute inferior endplate fracture. Extensive kyphoplasty changes involving T11 through L3 with significant chronic wedge compression fractures involving T11 through L1 causing kyphotic curvature. Multilevel thoracolumbar spondylosis as above with varying levels of neural foraminal and spinal canal stenosis. Bilateral right greater than left pleural effusions. Reported By:
[2018-09-10] MEDS: MORPHINE SULFATE INJ 2 MG INJ IVP SCH ×3 (02:30→18:05)
[2018-09-10] MEDS: NS 1000 ML 1,000 ML IV SCH ×3 (05:32→17:53)
[2018-09-10 05:50] LABS: BASOPHILS % (AUTO) 0.1 % (0.2-1.0); EOSINOPHILS % (AUTO) 0.1 % (0.9-2.9); HEMATOCRIT 39.2 % (36.0-47.0); HEMOGLOBIN 13.1 g/dL (12.0-16.0); LYMPHOCYTES # (AUTO) 0.5 X10^3/uL (1.3-2.9); LYMPHOCYTES % (AUTO) 13.5 % (21.0-51.0); MEAN CORPUSCULAR HEMOGLOBIN 31.2 pg (27.0-34.0); MEAN CORPUSCULAR HGB CONC 33.5 g/dL (33.0-35.0); MEAN CORPUSCULAR VOLUME 93.3 fL (80.0-100.0); MONOCYTES # (AUTO) 0.1 x10^3/uL (0.3-0.8); MONOCYTES % (AUTO) 3.4 % (0.0-13.0); NEUTROPHILS # (AUTO) 2.9 x10^3/uL (2.2-4.8); NEUTROPHILS % (AUTO) 82.9 % (42.0-75.0); PLATELET COUNT 105 X10^3/uL (150.0-450.0); RED CELL DISTRIBUTION WIDTH 13.6 % (11.6-16.5); WHITE BLOOD COUNT 3.5 X10^3/uL (3.6-10.0)
[2018-09-10] MEDS: DUONEB 0.5 MG/3 MG NEB SCH ×3 (05:55→21:50)
[2018-09-10 05:56] LABS: ALANINE AMINOTRANSFERASE 147 Units/L (12-78); ALBUMIN 2.7 g/dL (3.4-5.0); ALKALINE PHOSPHATASE 200 Units/L (46-116); ASPARTATE AMINO TRANSFERASE 58 Units/L (15-37); BLOOD UREA NITROGEN 12 mg/dL (7-18); CARBON DIOXIDE 25.7 mmol/L (21-32); CHLORIDE 105 mmol/L (98-107); COR NA(FOR HYPERGLY) 139 mmol/L (136-145); CREATININE 0.96 mg/dL (0.55-1.02); SODIUM 138 mmol/L (136-145); TOTAL PROTEIN 6.5 g/dL (6.4-8.2); eGFR NON BLACK RACES 59 (>60)
[2018-09-10] MEDS: SOLU-Medrol 40 MG VIAL IVP SCH ×3 (06:00→21:28)
[2018-09-10] MEDS: ROCEPHIN VIAL 1 GRAM IVP SCH (08:29)
[2018-09-10] MEDS: CITRACAL + VITAMIN D PO SCH ×2 (08:29→21:27)
[2018-09-10] MEDS: ALDACTONE TAB 25 MG PO SCH (08:30)
[2018-09-10] MEDS: ZANTAC PO SCH (08:30)
[2018-09-10] MEDS: WELLBUTRIN XL 150 MG (DAILY) PO SCH (08:30)
[2018-09-10] MEDS: K-DUR TAB 20 MEQ PO SCH ×2 (08:30→09:48)
[2018-09-10] MEDS: CYMBALTA PO SCH (08:30)
[2018-09-10] MEDS: MILK OF MAGNESIA PO SCH (08:31)
[2018-09-10] MEDS: LASIX PO SCH (08:31)
[2018-09-10] MEDS: INDERAL TAB 10 MG PO SCH ×2 (08:31→21:28)
[2018-09-10] MEDS: PULMICORT NEB TX 0.5 MG NEB SCH ×2 (08:42→21:50)
[2018-09-10] MEDS ORDERED: LASIX IVP SCH (16:00)
--- NOTE | 2018-09-10 16:11 | PCM.PROG ---
Progress Note - Progress Note for Day of Date of Exam: 09/10/18 - Subjective Subjective: 83 WF ER ADMISSION ON 09/06 WITH CO FALL WITH INSTRACTABLE BACK PAIN. PT HAS Nondisplaced fractures involving the inferior/posterior endplate of T10 andadditional nondisplaced fractures through the bilateral pedicles of T11. PT HAD CT ABD/PELVIS WITH CONTRAST REVEALING CHANCE TYPE COMPRESSION FRACTURE, MRI OBTAIN REVEALING Multilevel thoracolumbar spondylosis as above with varying levels of neural. foraminal and spinal canal stenosis. PT HAD NO DECREASED LE SENSATION OR MUSCLE WEAKNESS, NORMAL LOWER EXTREMITY REFLEXES. REVIEWED RESULTS WITH PATIENT. PT ASKING FOR PAIN CONTROL AT THIS TIME. PT K+ 5.4 THIS AM, WE DECREASED HER PO SUPPLEMENT TO 10MEQ, LASIX IV X 1 DOSE FOR TREATMENT OF SMALL PLEURAL EFFUSION PT REPORTS HER COUGH, CONGESTION IS IMPROVING. CO SEVERE BACK PAIN WITH COUGH EPISODES. THYROID US, ORIGINAL ORDERED OP, OBTAINED WHILE INPT REVEALING 2.5 R THYROID NODULE REQUIRING FNA BIOPSY, WILL SET UP ON OUTPT BASIS AFTER D/C. CONTINUE GENTLE HYDRATION. PAIN CONTROL, CONSULT PT FOR BACK BRACE/TURTLE SHELL BRACE. - Past Medical Family Social History Past Med/Fam/Surg Hx: No changes since H&P Allergies: Allergies Penicillins Allergy (Verified 09/06/18 14:14) RASH - Review of Systems ROS: No change since H&P - Vital Signs and I&O's Vital Signs: Temperature 98.3 F Pulse Rate [Right Brachial] 87 Pulse Rate 79 Respiratory Rate 18 Blood Pressure [Right Arm] 118/64 Blood Pressure [Right Calf] 116/66 Blood Pressure [Left Arm] 89/59 Blood Pressure 142/77 O2 Sat by Pulse Oximetry 94 Intake and Output: Intake & Output 09/08/18 09/09/18 09/10/18 09/11/18 11:59 11:59 11:59 11:59 Intake Total 2030 1695 / 1695 480 / 480 Balance 20305 / 169 480 / 480 - Physical Exam Oriented: Normal Eyes: Normal Ear: Normal Nose: Normal Throat: Normal Respiratory: Diminished Cardiovascular: Normal : Normal Auscultation: Bowel Sounds: Normal Tenderness: RUQ, Mild Skin: Decreased Turgur Musculoskeletal: Back:Thoracic, Back:Lumbar, Tender, Instability. negative: Motor Deficit, Sensory Deficit Psychiatric: Anxiety Mood Description: Sad Affect: Anxious Speech Pattern: Clear, Appropriate - Laboratory and Diagnostics Result Diagrams: 09/10/18 05:28 09/10/18 05:28 Labs: Laboratory WBC 3.5 X10^3/uL (3.6-10.0) L 09/10/18 05:28 RBC 4.20 X10^6/uL (3.5-5.4) 09/10/18 05:28 Hgb 13.1 g/dL (12.0-16.0) 09/10/18 05:28 Hct 39.2 % (36.0-47.0) 09/10/18 05:28 MCV 93.3 fL (80.0-100.0) 09/10/18 05:28 MCH 31.2 pg (27.0-34.0) 09/10/18 05:28 MCHC 33.5 g/dL (33.0-35.0) 09/10/18 05:28 RDW 13.6 % (11.6-16.5) 09/10/18 05:28 Plt Count 105 X10^3/uL (150.0-450.0) L 09/10/18 05:28 Plt Count Comment Adequate (ADEQUATE) 09/09/18 05:40 MPV 12.0 fL (7.4-11.0) H 09/10/18 05:28 Neut % (Auto) 82.9 % (42.0-75.0) H 09/10/18 05:28 Lymph % (Auto) 13.5 % (21.0-51.0) L 09/10/18 05:28 [place] % (Auto) 3.4 % (0.0-13.0) 09/10/18 05:28 Eos % (Auto) 0.1 % (0.9-2.9) L 09/10/18 05:28 Baso % (Auto) 0.1 % (0.2-1.0) L 09/10/18 05:28 Neut # (Auto) 2.9 x10^3/uL (2.2-4.8) 09/10/18 05:28 Lymph # (Auto) 0.5 X10^3/uL (1.3-2.9) L 09/10/18 05:28 [place] # (Auto) 0.1 x10^3/uL (0.3-0.8) L 09/10/18 05:28 Eos # (Auto) 0.0 x10^3/uL (0.0-0.2) 09/10/18 05:28 Baso # (Auto) 0.0 X10^3/uL (0.0-0.1) 09/10/18 05:28 Absolute Nucleated RBC 0.0 /100WBC 09/10/18 05:28 Plt Morphology Comment Normal (NORMAL) 09/09/18 05:40 RBC Morphology Normal (NORMAL) 09/09/18 05:40 Sodium 138 mmol/L (136-145) 09/10/18 05:28 Corrected Sodium 139 mmol/L (136-145) 09/10/18 05:28 Potassium 5.4 mmol/L (3.5-5.1) H 09/10/18 05:28 Chloride 105 mmol/L (98-107) 09/10/18 05:28 Carbon Dioxide 25.7 mmol/L (21-32) 09/10/18 05:28 BUN 12 mg/dL (7-18) 09/10/18 05:28 Creatinine 0.96 mg/dL (0.55-1.02) 09/10/18 05:28 Est GFR (MDRD) Af Amer > 60 (>60) 09/10/18 05:28 Est GFR (MDRD) Non-Af 59 (>60) 09/10/18 05:28 Glucose 139 mg/dL (65-99) H 09/10/18 05:28 Calcium 8.0 mg/dL (8.5-10.1) L 09/10/18 05:28 Corrected Calcium 9.0 mg/dL (8.5-10.1) 09/10/18 05:28 Total Bilirubin 0.40 mg/dL (0.2-1.0) 09/10/18 05:28 AST 58 Units/L (15-37) H 09/10/18 05:28 ALT 147 Units/L (12-78) H 09/10/18 05:28 Alkaline Phosphatase 200 Units/L (46-116) H 09/10/18 05:28 Total Protein 6.5 g/dL (6.4-8.2) 09/10/18 05:28 Albumin 2.7 g/dL (3.4-5.0) L 09/10/18 05:28 Globulin 3.8 g/dL (2.5-4.5) 09/10/18 05:28 Albumin/Globulin Ratio 0.7 Ratio (1.1-2.1) L 09/10/18 05:28 Triglycerides 77 mg/dL (0-150) 09/07/18 05:08 Cholesterol 151 mg/dL (0-200) 09/07/18 05:08 LDL Cholesterol, Calc 89 mg/dL (0-100) 09/07/18 05:08 HDL Cholesterol 47 mg/dL (40-60) 09/07/18 05:08 Cholesterol/HDL Ratio 3.2 (0.0-5.0) 09/07/18 05:08 Amylase 98 Units/L (25-115) 09/06/18 14:46 Lipase 114 Units/L (73-393) 09/06/18 14:46 Free T4 1.55 ng/dL (0.76-1.46) H 09/09/18 05:40 TSH 3rd Generation 0.272 uIU/mL (0.358-3.74) L 09/09/18 05:40 Specimen Type Clean catch urine 09/06/18 18:00 Urine Color Yellow (YELLOW) 09/06/18 18:00 Urine Appearance Clear (CLEAR) 09/06/18 18:00 Urine pH 6.0 (5.0 - 8.0) 09/06/18 18:00 Ur Specific [place] 1.010 (1.000-1.030) 09/06/18 18:00 Urine Protein Negative (NEGATIVE) 09/06/18 18:00 Urine Glucose (UA) Negative (NEGATIVE) 09/06/18 18:00 Urine Ketones Negative (NEGATIVE) 09/06/18 18:00 Urine Occult Blood Negative (NEGATIVE) 09/06/18 18:00 Urine Nitrite Negative (NEGATIVE) 09/06/18 18:00 Urine Bilirubin Negative (NEGATIVE) 09/06/18 18:00 Urine Urobilinogen Normal (NORMAL) 09/06/18 18:00 Ur Leukocyte Esterase Negative (NEGATIVE) 09/06/18 18:00 - Plan (1) Compression fracture Status: Acute Plan: IV PAIN CONTROL, CT AND MRI OBTAINED, NEURO CHECKS. PT CONSULT. AM LABS. RESP TREATMENTS, PRN SUPPLEMENTAL O2. IV ROCEPHIN 1GM DAILY (2) Acute bronchitis Status: Acute (3) Fall Status: Acute (4) Intractable pain Status: Acute (5) HTN (hypertension) Status: Chronic (6) Elevated LFTs Status: Acute (7) Thyromegaly Status: Acute Plan: THYROID PANEL. THYROID US, REQUIRE FNA BIOPSY ON OUTPT BASIS (8) HX: breast cancer Status: Chronic (9) Osteoporosis Status: Chronic
[2018-09-10] MEDS: LOVENOX INJ 40 MG SYR SC SCH (18:04)
[2018-09-10] MEDS: PriLOSEC PO SCH (21:27)
[2018-09-10] MEDS: LYRICA CAP 150 MG PO SCH (21:28)
[2018-09-10] MEDS: COLACE CAP 100 MG PO SCH (21:28)
[2018-09-10] MEDS: MIRALAX POWDER (1 DOSE 17 G) PO SCH (21:28)
[2018-09-11] MEDS: MORPHINE SULFATE INJ 2 MG INJ IVP PRN ×2 (00:43→19:46)
[2018-09-11] MEDS: NS 1000 ML 1,000 ML IV SCH ×2 (01:12→18:16)
[2018-09-11] MEDS: MORPHINE SULFATE INJ 2 MG INJ IVP SCH ×3 (02:59→18:16)
[2018-09-11 05:27] LABS: BASOPHILS % (AUTO) 0 % (0.2-1.0); LYMPHOCYTES # (AUTO) 0.5 X10^3/uL (1.3-2.9); MEAN CORPUSCULAR HGB CONC 33.3 g/dL (33.0-35.0); MEAN CORPUSCULAR VOLUME 93.1 fL (80.0-100.0); MEAN PLATELET VOLUME 12.1 fL (7.4-11.0); MONOCYTES # (AUTO) 0.3 x10^3/uL (0.3-0.8); MONOCYTES % (AUTO) 5.2 % (0.0-13.0); NEUTROPHILS # (AUTO) 4.7 x10^3/uL (2.2-4.8); NEUTROPHILS % (AUTO) 85.8 % (42.0-75.0); PLATELET COUNT 136 X10^3/uL (150.0-450.0); RED BLOOD COUNT 3.87 X10^6/uL (3.5-5.4); RED CELL DISTRIBUTION WIDTH 13.5 % (11.6-16.5); WHITE BLOOD COUNT 5.4 X10^3/uL (3.6-10.0)
[2018-09-11] MEDS: DUONEB 0.5 MG/3 MG NEB SCH ×3 (05:36→21:23)
[2018-09-11 05:38] LABS: ALANINE AMINOTRANSFERASE 106 Units/L (12-78); ALBUMIN 2.7 g/dL (3.4-5.0); ALKALINE PHOSPHATASE 162 Units/L (46-116); ASPARTATE AMINO TRANSFERASE 32 Units/L (15-37); BLOOD UREA NITROGEN 17 mg/dL (7-18); CALCIUM 8.4 mg/dL (8.5-10.1); CARBON DIOXIDE 28.6 mmol/L (21-32); CHLORIDE 105 mmol/L (98-107); COR CA(FOR HYPOALB) 9.4 mg/dL (8.5-10.1); COR NA(FOR HYPERGLY) 140 mmol/L (136-145); CREATININE 0.93 mg/dL (0.55-1.02); SODIUM 139 mmol/L (136-145); TOTAL PROTEIN 6.2 g/dL (6.4-8.2); eGFR NON BLACK RACES > 60 (>60)
[2018-09-11] MEDS: SOLU-Medrol 40 MG VIAL IVP SCH ×3 (05:58→21:23)
[2018-09-11] MEDS: CITRACAL + VITAMIN D PO SCH ×2 (08:28→21:22)
[2018-09-11] MEDS: K-DUR TAB 20 MEQ PO SCH (08:28)
[2018-09-11] MEDS: WELLBUTRIN XL 150 MG (DAILY) PO SCH (08:28)
[2018-09-11] MEDS: ALDACTONE TAB 25 MG PO SCH (08:29)
[2018-09-11] MEDS: ZANTAC PO SCH (08:29)
[2018-09-11] MEDS: ROCEPHIN VIAL 1 GRAM IVP SCH (08:30)
[2018-09-11] MEDS: INDERAL TAB 10 MG PO SCH ×2 (08:30→21:22)
[2018-09-11] MEDS: LASIX PO SCH (08:30)
[2018-09-11] MEDS: MILK OF MAGNESIA PO SCH (08:33)
[2018-09-11] MEDS: LOVENOX INJ 40 MG SYR SC SCH (08:42)
[2018-09-11] MEDS: CYMBALTA PO SCH (09:30)
[2018-09-11] MEDS: PULMICORT NEB TX 0.5 MG NEB SCH ×2 (09:42→21:23)
[2018-09-11] MEDS: LYRICA CAP 150 MG PO SCH (21:22)
[2018-09-11] MEDS: COLACE CAP 100 MG PO SCH (21:22)
[2018-09-11] MEDS: PriLOSEC PO SCH (21:23)
[2018-09-11] MEDS: MIRALAX POWDER (1 DOSE 17 G) PO SCH (21:23)
[2018-09-12] MEDS: MORPHINE SULFATE INJ 2 MG INJ IVP SCH ×3 (02:39→18:35)
[2018-09-12 05:43] LABS: BASOPHILS % (AUTO) 0.1 % (0.2-1.0); HEMATOCRIT 35.5 % (36.0-47.0); HEMOGLOBIN 11.9 g/dL (12.0-16.0); LYMPHOCYTES # (AUTO) 0.4 X10^3/uL (1.3-2.9); LYMPHOCYTES % (AUTO) 7.7 % (21.0-51.0); MEAN CORPUSCULAR HGB CONC 33.4 g/dL (33.0-35.0); MEAN CORPUSCULAR VOLUME 92.9 fL (80.0-100.0); MEAN PLATELET VOLUME 11.5 fL (7.4-11.0); MONOCYTES # (AUTO) 0.3 x10^3/uL (0.3-0.8); MONOCYTES % (AUTO) 5.4 % (0.0-13.0); NEUTROPHILS # (AUTO) 4.6 x10^3/uL (2.2-4.8); NEUTROPHILS % (AUTO) 86.8 % (42.0-75.0); PLATELET COUNT 144 X10^3/uL (150.0-450.0); RED BLOOD COUNT 3.83 X10^6/uL (3.5-5.4); RED CELL DISTRIBUTION WIDTH 13.5 % (11.6-16.5); WHITE BLOOD COUNT 5.3 X10^3/uL (3.6-10.0)
[2018-09-12] MEDS: SOLU-Medrol 40 MG VIAL IVP SCH ×2 (05:48→14:06)
[2018-09-12] MEDS: DUONEB 0.5 MG/3 MG NEB SCH ×4 (05:55→21:14)
[2018-09-12 06:00] LABS: ALANINE AMINOTRANSFERASE 79 Units/L (12-78); ALBUMIN 2.6 g/dL (3.4-5.0); ALKALINE PHOSPHATASE 135 Units/L (46-116); ASPARTATE AMINO TRANSFERASE 25 Units/L (15-37); BLOOD UREA NITROGEN 18 mg/dL (7-18); CALCIUM 8.3 mg/dL (8.5-10.1); CARBON DIOXIDE 25.8 mmol/L (21-32); CHLORIDE 106 mmol/L (98-107); COR CA(FOR HYPOALB) 9.4 mg/dL (8.5-10.1); COR NA(FOR HYPERGLY) 142 mmol/L (136-145); CREATININE 0.84 mg/dL (0.55-1.02); SODIUM 141 mmol/L (136-145); TOTAL PROTEIN 5.9 g/dL (6.4-8.2); eGFR NON BLACK RACES > 60 (>60)
[2018-09-12] MEDS: NS 1000 ML 1,000 ML IV SCH ×3 (06:41→18:36)
[2018-09-12] MEDS: K-DUR TAB 20 MEQ PO SCH (08:29)
[2018-09-12] MEDS: ZANTAC PO SCH (08:29)
[2018-09-12] MEDS: ALDACTONE TAB 25 MG PO SCH (08:30)
[2018-09-12] MEDS: INDERAL TAB 10 MG PO SCH ×2 (08:30→20:24)
[2018-09-12] MEDS: LASIX PO SCH (08:30)
[2018-09-12] MEDS: WELLBUTRIN XL 150 MG (DAILY) PO SCH (08:30)
[2018-09-12] MEDS: CITRACAL + VITAMIN D PO SCH ×2 (08:30→20:23)
[2018-09-12] MEDS: ROCEPHIN VIAL 1 GRAM IVP SCH (08:31)
[2018-09-12] MEDS: MILK OF MAGNESIA PO SCH (08:32)
[2018-09-12] MEDS: LOVENOX INJ 40 MG SYR SC SCH (08:32)
[2018-09-12] MEDS: CYMBALTA PO SCH (08:34)
[2018-09-12] MEDS: PULMICORT NEB TX 0.5 MG NEB SCH ×2 (09:18→20:53)
[2018-09-12] MEDS: MORPHINE SULFATE INJ 2 MG INJ IVP PRN ×2 (11:48→22:05)
[2018-09-12] MEDS: COLACE CAP 100 MG PO SCH (20:23)
[2018-09-12] MEDS: MIRALAX POWDER (1 DOSE 17 G) PO SCH (20:24)
[2018-09-12] MEDS: LYRICA CAP 150 MG PO SCH (20:24)
[2018-09-12] MEDS: PriLOSEC PO SCH (20:25)
[2018-09-13] MEDS: MORPHINE SULFATE INJ 2 MG INJ IVP SCH (03:50)
[2018-09-13 04:58] LABS: BASOPHILS % (AUTO) 0.1 % (0.2-1.0); EOSINOPHILS % (AUTO) 0.1 % (0.9-2.9); HEMATOCRIT 37.2 % (36.0-47.0); HEMOGLOBIN 12.3 g/dL (12.0-16.0); LYMPHOCYTES # (AUTO) 0.6 X10^3/uL (1.3-2.9); LYMPHOCYTES % (AUTO) 8.8 % (21.0-51.0); MEAN CORPUSCULAR HGB CONC 33.1 g/dL (33.0-35.0); MEAN CORPUSCULAR VOLUME 93.7 fL (80.0-100.0); MEAN PLATELET VOLUME 11.4 fL (7.4-11.0); MONOCYTES # (AUTO) 0.7 x10^3/uL (0.3-0.8); MONOCYTES % (AUTO) 9.5 % (0.0-13.0); NEUTROPHILS # (AUTO) 5.6 x10^3/uL (2.2-4.8); NEUTROPHILS % (AUTO) 81.5 % (42.0-75.0); PLATELET COUNT 153 X10^3/uL (150.0-450.0); RED BLOOD COUNT 3.97 X10^6/uL (3.5-5.4); RED CELL DISTRIBUTION WIDTH 13.6 % (11.6-16.5); WHITE BLOOD COUNT 6.9 X10^3/uL (3.6-10.0)
[2018-09-13 05:10] LABS: ALANINE AMINOTRANSFERASE 64 Units/L (12-78); ALBUMIN 2.5 g/dL (3.4-5.0); ALKALINE PHOSPHATASE 123 Units/L (46-116); ASPARTATE AMINO TRANSFERASE 21 Units/L (15-37); BLOOD UREA NITROGEN 18 mg/dL (7-18); CALCIUM 8.5 mg/dL (8.5-10.1); CARBON DIOXIDE 25.7 mmol/L (21-32); CHLORIDE 107 mmol/L (98-107); COR CA(FOR HYPOALB) 9.7 mg/dL (8.5-10.1); CREATININE 0.88 mg/dL (0.55-1.02); SODIUM 141 mmol/L (136-145); TOTAL PROTEIN 5.7 g/dL (6.4-8.2); eGFR NON BLACK RACES > 60 (>60)
[2018-09-13] MEDS: NS 1000 ML 1,000 ML IV SCH (05:19)
[2018-09-13] MEDS: DUONEB 0.5 MG/3 MG NEB SCH ×2 (06:00→12:29)
[2018-09-13] MEDS: PULMICORT NEB TX 0.5 MG NEB SCH (08:03)
[2018-09-13] MEDS: ROCEPHIN VIAL 1 GRAM IVP SCH (08:25)
[2018-09-13] MEDS: ZANTAC PO SCH (08:25)
[2018-09-13] MEDS: ALDACTONE TAB 25 MG PO SCH (08:26)
[2018-09-13] MEDS: WELLBUTRIN XL 150 MG (DAILY) PO SCH (08:26)
[2018-09-13] MEDS: LASIX PO SCH (08:26)
[2018-09-13] MEDS: CITRACAL + VITAMIN D PO SCH (08:26)
[2018-09-13] MEDS: K-DUR TAB 20 MEQ PO SCH (08:26)
[2018-09-13] MEDS: CYMBALTA PO SCH (08:26)
[2018-09-13] MEDS: INDERAL TAB 10 MG PO SCH (08:27)
[2018-09-13] MEDS: LOVENOX INJ 40 MG SYR SC SCH (08:27)
[2018-09-13] MEDS: MILK OF MAGNESIA PO SCH (08:28)
[2018-09-13] MEDS ORDERED: NORCO 10/325 TAB PO PRN (08:58)
[2018-09-13 13:44] VITALS: BP 131/3
== END 2018-09-13 13:35 | disposition home health service (06) | DRG 552 ==
LOC: ER 14:08 → MED/SURG 17:22
PROVIDERS: ADMIT Internal Medicine; ATTEND Internal Medicine
DX: R26.89 Other abnormalities of gait and mobility; M54.5 Low back pain; J90 Pleural effusion, not elsewhere classified; S22.071A Stable burst fracture of T9-T10 vertebra, initial encounter for closed fracture; Z91.81 History of falling; R53.1 Weakness; E04.9 Nontoxic goiter, unspecified; I10 Essential (primary) hypertension; S22.081A Stable burst fracture of T11-T12 vertebra, initial encounter for closed fracture; J20.8 Acute bronchitis due to other specified organisms; K21.9 Gastro-esophageal reflux disease without esophagitis; Z85.3 Personal history of malignant neoplasm of breast; M81.0 Age-related osteoporosis without current pathological fracture; R74.8 Abnormal levels of other serum enzymes; F41.8 Other specified anxiety disorders; W18.39XA Other fall on same level, initial encounter; R10.11 Right upper quadrant pain
CPT/HCPCS: 36415; 70450; 71010; 71045; 72131; 72148; 74177; 76536; 76705; 80053; 80061; 81003; 82150; 83690; 84439; 84443; 85025; 94640; 94760; 96365; 96374; 96375; 97116; 97162; 97166; 97530; 97535; 99284; A4222; S0106; J0696; J1650; J2270; J2405; J2920; J7030; J7050; J7620; J7626

== ENCOUNTER 2019-02-09 14:47 | Observation (INO) ==
[2019-02-09] MEDS ORDERED: TYLENOL 325 MG TAB PO PRN (17:13)
[2019-02-09] MEDS ORDERED: ZOFRAN INJ 4 MG VIAL IVP PRN (17:13)
[2019-02-09] MEDS ORDERED: MORPHINE SULFATE INJ 2 MG INJ IVP PRN (17:13)
[2019-02-09 17:20] VITALS: BMI 37.8
[2019-02-09 17:47] LABS: BASOPHILS % (AUTO) 0.8 % (0.2-1.0); EOSINOPHILS # (AUTO) 0.1 x10^3/uL (0.0-0.2); HEMATOCRIT 40.7 % (36.0-47.0); HEMOGLOBIN 13.8 g/dL (12.0-16.0); LYMPHOCYTES # (AUTO) 0.9 X10^3/uL (1.3-2.9); LYMPHOCYTES % (AUTO) 19.7 % (21.0-51.0); MEAN CORPUSCULAR HEMOGLOBIN 31.8 pg (27.0-34.0); MEAN CORPUSCULAR HGB CONC 33.9 g/dL (33.0-35.0); MEAN CORPUSCULAR VOLUME 93.8 fL (80.0-100.0); MEAN PLATELET VOLUME 11.2 fL (7.4-11.0); MONOCYTES # (AUTO) 0.6 x10^3/uL (0.3-0.8); MONOCYTES % (AUTO) 11.8 % (0.0-13.0); NEUTROPHILS # (AUTO) 3.1 x10^3/uL (2.2-4.8); NEUTROPHILS % (AUTO) 64.7 % (42.0-75.0); PLATELET COUNT 112 X10^3/uL (150.0-450.0); RED BLOOD COUNT 4.34 X10^6/uL (3.5-5.4); RED CELL DISTRIBUTION WIDTH 13.7 % (11.6-16.5); WHITE BLOOD COUNT 4.8 X10^3/uL (3.6-10.0)
[2019-02-09 17:56] LABS: BILIRUBIN,URINE NEGATIVE (NEGATIVE); BLOOD/HEMOGLOBIN,URINE NEGATIVE (NEGATIVE); GLUCOSE, URINE NEGATIVE (NEGATIVE); KETONES,URINE NEGATIVE (NEGATIVE); LEUKOCYTE ESTERASE ,URINE NEGATIVE (NEGATIVE); NITRITES,URINE NEGATIVE (NEGATIVE); PROTEIN,URINE NEGATIVE (NEGATIVE); UROBILINOGEN,URINE NORMAL (NORMAL)
[2019-02-09 17:57] LABS: ALANINE AMINOTRANSFERASE 28 Units/L (12-78); ALBUMIN 3.4 g/dL (3.4-5.0); ALKALINE PHOSPHATASE 68 Units/L (46-116); ASPARTATE AMINO TRANSFERASE 29 Units/L (15-37); BLOOD UREA NITROGEN 15 mg/dL (7-18); CARBON DIOXIDE 30.4 mmol/L (21-32); CHLORIDE 102 mmol/L (98-107); CREATININE 1.13 mg/dL (0.55-1.02); SODIUM 137 mmol/L (136-145); TOTAL PROTEIN 6.8 g/dL (6.4-8.2); eGFR NON BLACK RACES 49 (>60)
[2019-02-09 18:00] LABS: APPEARANCE,URINE CLEAR (CLEAR); COLOR,URINE YELLOW (YELLOW)
--- NOTE | 2019-02-09 18:06 | RAD ---
PA and lateral Chest Indication:Cough with shortness of breath Comparison: 09/07/2018 Findings: The trachea is midline. The cardiac silhouette is unremarkable. Chronic interstitial lung changes are noted not appreciably changed from prior exam. 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 No new osseous abnormality. Stable leftward displacement the trachea likely in the setting of thyroid gland enlargement. IMPRESSION: 1. No acute cardiopulmonary abnormality. Reported By:
[2019-02-09] MEDS: NS 1000 ML 1,000 ML IV SCH (20:02)
[2019-02-10] MEDS ORDERED: NORCO 5/325 MG TAB ONE (03:30)
[2019-02-10] MEDS: NORCO 5/325 MG TAB PO PRN ×4 (03:35→20:34)
[2019-02-10 05:47] LABS: BASOPHILS % (AUTO) 0.6 % (0.2-1.0); EOSINOPHILS # (AUTO) 0.1 x10^3/uL (0.0-0.2); EOSINOPHILS % (AUTO) 3.7 % (0.9-2.9); HEMATOCRIT 39.4 % (36.0-47.0); HEMOGLOBIN 13.3 g/dL (12.0-16.0); LYMPHOCYTES # (AUTO) 0.7 X10^3/uL (1.3-2.9); LYMPHOCYTES % (AUTO) 18.5 % (21.0-51.0); MEAN CORPUSCULAR HEMOGLOBIN 31.9 pg (27.0-34.0); MEAN CORPUSCULAR HGB CONC 33.7 g/dL (33.0-35.0); MEAN CORPUSCULAR VOLUME 94.5 fL (80.0-100.0); MEAN PLATELET VOLUME 11.3 fL (7.4-11.0); MONOCYTES # (AUTO) 0.5 x10^3/uL (0.3-0.8); MONOCYTES % (AUTO) 12.5 % (0.0-13.0); NEUTROPHILS # (AUTO) 2.4 x10^3/uL (2.2-4.8); NEUTROPHILS % (AUTO) 64.7 % (42.0-75.0); PLATELET COUNT 105 X10^3/uL (150.0-450.0); RED BLOOD COUNT 4.16 X10^6/uL (3.5-5.4); RED CELL DISTRIBUTION WIDTH 13.4 % (11.6-16.5); WHITE BLOOD COUNT 3.7 X10^3/uL (3.6-10.0)
[2019-02-10 05:53] LABS: HEMOGLOBIN A1C 5.3 %
[2019-02-10 06:04] LABS: ALANINE AMINOTRANSFERASE 27 Units/L (12-78); ALBUMIN 3.1 g/dL (3.4-5.0); ALKALINE PHOSPHATASE 63 Units/L (46-116); ASPARTATE AMINO TRANSFERASE 29 Units/L (15-37); BLOOD UREA NITROGEN 13 mg/dL (7-18); CALCIUM 8.8 mg/dL (8.5-10.1); CARBON DIOXIDE 30.8 mmol/L (21-32); CHLORIDE 108 mmol/L (98-107); COR CA(FOR HYPOALB) 9.5 mg/dL (8.5-10.1); SODIUM 144 mmol/L (136-145); TOTAL PROTEIN 6.3 g/dL (6.4-8.2); eGFR NON BLACK RACES 56 (>60)
[2019-02-10] MEDS: NS 1000 ML 1,000 ML IV SCH ×2 (10:27→20:34)
--- NOTE | 2019-02-10 16:42 | CT ---
HEAD CT WITHOUT IV CONTRAST CLINICAL INDICATION: Confusion and altered mental status TECHNIQUE: Axial CT images from skull base to vertex without IV contrast.Dose reduction techniques including Automated Exposure Control (AEC) and adjustment of mA and kV were utlized. COMPARISON: None FINDINGS: Diffuse patchy and confluent white matter hypoattenuation with associated volume loss. There is no evidence of acute infarction, intracranial hemorrhage, mass or mass effect, or abnormal extra-axial collection. The density of the larger dural venous sinuses is normal. Age-related, ex-vacuo dilatation of the ventricles and sulci. The skull base and calvarium are normal. The included paranasal sinuses and mastoid air cells are predominantly clear. IMPRESSION: 1. No acute intracranial abnormality. Chronic microangiopathic changes and ex vacuo dilatation of the ventricles and sulci. Reported By:
--- NOTE | 2019-02-10 16:42 | RAD ---
HISTORY: Fall with back pain Study: 3 views of the thoracic spine. Comparison: None Findings: Multiple chronic compression deformities status post kyphoplasty. Focal kyphosis of the lower thoracic spine at approximately T10. Severe multilevel degenerative disc disease. IMPRESSION: 1. No definite acute findings. 2. Severe chronic degenerative disc disease and multiple compression fractures. Reported By:
[2019-02-10] MEDS ORDERED: VISTARIL PO PRN (22:37)
[2019-02-11] MEDS ORDERED: NORCO 10/325 TAB PO SCH (06:00)
[2019-02-11 06:01] LABS: BASOPHILS % (AUTO) 0.5 % (0.2-1.0); EOSINOPHILS # (AUTO) 0.1 x10^3/uL (0.0-0.2); EOSINOPHILS % (AUTO) 2.6 % (0.9-2.9); HEMATOCRIT 39.2 % (36.0-47.0); HEMOGLOBIN 13.3 g/dL (12.0-16.0); LYMPHOCYTES # (AUTO) 0.7 X10^3/uL (1.3-2.9); LYMPHOCYTES % (AUTO) 17.6 % (21.0-51.0); MEAN CORPUSCULAR HEMOGLOBIN 31.7 pg (27.0-34.0); MEAN CORPUSCULAR VOLUME 93.4 fL (80.0-100.0); MEAN PLATELET VOLUME 11.1 fL (7.4-11.0); MONOCYTES # (AUTO) 0.4 x10^3/uL (0.3-0.8); MONOCYTES % (AUTO) 11.3 % (0.0-13.0); NEUTROPHILS # (AUTO) 2.6 x10^3/uL (2.2-4.8); PLATELET COUNT 102 X10^3/uL (150.0-450.0); RED CELL DISTRIBUTION WIDTH 13.2 % (11.6-16.5); WHITE BLOOD COUNT 3.8 X10^3/uL (3.6-10.0)
[2019-02-11 06:18] LABS: ALANINE AMINOTRANSFERASE 26 Units/L (12-78); ALBUMIN 3.1 g/dL (3.4-5.0); ALKALINE PHOSPHATASE 62 Units/L (46-116); ASPARTATE AMINO TRANSFERASE 27 Units/L (15-37); BLOOD UREA NITROGEN 12 mg/dL (7-18); CALCIUM 8.8 mg/dL (8.5-10.1); CHLORIDE 108 mmol/L (98-107); COR CA(FOR HYPOALB) 9.5 mg/dL (8.5-10.1); CREATININE 0.91 mg/dL (0.55-1.02); SODIUM 142 mmol/L (136-145); TOTAL PROTEIN 6.3 g/dL (6.4-8.2); eGFR NON BLACK RACES > 60 (>60)
[2019-02-11] MEDS: WELLBUTRIN XL 150 MG (DAILY) PO SCH ×2 (08:40→09:05)
[2019-02-11] MEDS ORDERED: LASIX PO SCH (09:00)
[2019-02-11] MEDS ORDERED: FLONASE NASAL SPRAY ENOSTRIL SCH (09:00)
[2019-02-11] MEDS ORDERED: MICRO K EXTEN CAP 10 MEQ PO SCH (09:00)
[2019-02-11] MEDS ORDERED: ALDACTONE TAB 25 MG PO SCH (09:00)
[2019-02-11] MEDS ORDERED: CHECK PATCH XX SCH (09:00)
[2019-02-11] MEDS ORDERED: TOPROL XL PO SCH (09:00)
[2019-02-11] MEDS ORDERED: MIRALAX POWDER (1 DOSE 17 G) PO SCH (09:00)
[2019-02-11] MEDS ORDERED: CYMBALTA PO SCH (09:00)
[2019-02-11 12:19] VITALS: BP 118/70
--- NOTE | 2019-02-11 13:33 | DR.H&P ---
H&P - History & Physical for Day of: H&P Date: 02/09/19 - Chief Complaint Chief Complaint: AMS, WEAKNESS, DIZZINESS - History of Present Illness History of Present Illness: 84 WF DIRECT ADMIT WITH CO INCREASED WEAKNESS, POSSIBLE CVA. PT STATES SHE RECENTLY INCREASED LYRICA FOR PAIN WITH HELPED WITH PAIN BUT FOLLOWED WITH SYMPTOMS OF CONFUSION, DIZZINESS, WEAKNESS AND "CANNOT FIND THE RIGHT WORDS. PT HAS PMH OF SEVERE MULTI LEVEL DDD, OA, HTN, HUNTER, MDD, HYPERLIPIDEMIA. PT ADMITTED FOR EVALUATION AND TREATMENT OF ACUTE ILLNESS. - Past Medical History Past Medical History: Anxiety, Arthritis, Depression, Dyslipidemia, GERD, Sleep Apnea Additional Medical History: Fibromyalgia, Polyneuropathy, Clavicular fracture - Past Surgical History Surgical History: Cholecystectomy, Hysterectomy, Mastectomy, Other - Family History Family Medical History: Hypertension - Social History Does patient currently use any type of tobacco product: No Have you used tobacco products in the last 12 months: No Type of Tobacco Use: None Does any household member use tobacco: No Alcohol Use: None Drug Use: Prescription Drugs - Medications Home Medications: Penicillins Allergy (Verified 09/06/18 14:14) CONTINUE taking the following medications duloxetine 60 mg PO DAILY 02/10/19 [History] metoprolol succinate 1 mg PO DAILY 02/10/19 [History] potassium chloride 10 meq PO DAILY 02/10/19 [History] - Review of Systems Constitutional: Weakness Eyes: No Symptoms Reported ENT: No Symptoms Reported Respiratory: No Symptoms Reported Cardiovascular: No Symptoms Reported Gastrointestinal: Nausea Genitourinary: No Symptoms Reported Musculoskeletal: Back Pain, Leg Pain Skin: No Symptoms Reported Neurological: Weakness, Change in Speech ("CANNOT FIND THE RIGHT WORDS" EPISODES REPORTED), Confusion - Physical Exam Vital Signs: Temperature 98.1 F Pulse Rate [Right Brachial] 88 Respiratory Rate 18 Blood Pressure [Right Arm] 118/70 O2 Sat by Pulse Oximetry 96 Oriented: Normal Eyes: Normal Ear: Normal Nose: Normal Throat: Normal Respiratory: RLL Diminished, LLL Diminished Cardiovascular: Normal : Normal Auscultation: Bowel Sounds: Normal Palpation: Normal Tenderness: Normal Skin: Decreased Turgur, Bruising (LEFT KNEE) Musculoskeletal: Right, Left, Knee, Back:Thoracic, Back:Lumbar, Motor Deficit Psychiatric: Anxiety Affect: Anxious Speech Pattern: Clear, Appropriate - Assessment/Plan (1) Altered mental status Status: Acute Plan: ADMIT, R/O CVA. BLOOD CULTURES ON ADMISSION. CXR, CT HEAD W/O. UA, CBC CMP. BP CONTROL, VERIFY HOME MEDICATIONS (2) Weakness Status: Acute (3) Obstructive sleep apnea treated with BiPAP Status: Chronic (4) HTN (hypertension) Status: Chronic (5) Rheumatoid arthritis Status: Chronic - Allergies Allergies/Adverse Reactions: Allergies Allergy/AdvReac Type Severity Reaction Status Date / Time Penicillins Allergy Verified 09/06/18 14:14
== END 2019-02-11 13:58 | disposition home or self-care (01) ==
LOC: MED/SURG
PROVIDERS: ADMIT Internal Medicine; ATTEND Internal Medicine
DX: G89.4 Chronic pain syndrome; S80.02XA Contusion of left knee, initial encounter; X58.XXXA Exposure to other specified factors, initial encounter; M19.90 Unspecified osteoarthritis, unspecified site; G25.3 Myoclonus; F41.8 Other specified anxiety disorders; G47.33 Obstructive sleep apnea (adult) (pediatric); R53.1 Weakness; E78.2 Mixed hyperlipidemia; R26.89 Other abnormalities of gait and mobility; R42 Dizziness and giddiness; I10 Essential (primary) hypertension; R41.82 Altered mental status, unspecified; M06.9 Rheumatoid arthritis, unspecified
CPT/HCPCS: 36415; 70450; 71020; 71046; 72072; 80053; 81003; 83036; 85025; 87040; 94760; 96367; 96374; 97162; 97166; A4222; Q0177; S0106; G0378; J2405; J7030

== ENCOUNTER 2019-11-14 15:19 | Inpatient (IN) ==
[2019-11-14 17:50] LABS: BASOPHILS % (AUTO) 0.7 % (0.2-1.0); EOSINOPHILS # (AUTO) 0.2 x10^3/uL (0.0-0.2); EOSINOPHILS % (AUTO) 3.6 % (0.9-2.9); HEMATOCRIT 36.5 % (36.0-47.0); HEMOGLOBIN 12.1 g/dL (12.0-16.0); LYMPHOCYTES % (AUTO) 19.6 % (21.0-51.0); MEAN CORPUSCULAR HEMOGLOBIN 30.1 pg (27.0-34.0); MEAN CORPUSCULAR HGB CONC 33.1 g/dL (33.0-35.0); MEAN CORPUSCULAR VOLUME 91.2 fL (80.0-100.0); MEAN PLATELET VOLUME 10.6 fL (7.4-11.0); MONOCYTES # (AUTO) 0.6 x10^3/uL (0.3-0.8); MONOCYTES % (AUTO) 12.3 % (0.0-13.0); NEUTROPHILS # (AUTO) 3.4 x10^3/uL (2.2-4.8); NEUTROPHILS % (AUTO) 63.8 % (42.0-75.0); PLATELET COUNT 182 X10^3/uL (150.0-450.0); WHITE BLOOD COUNT 5.3 X10^3/uL (3.6-10.0)
--- NOTE | 2019-11-14 17:59 | RAD ---
CHEST, 1 VIEWHistory: COUGHComparison: 02/09/2019Findings: Accounting for AP technique and low lung volumes, the cardiac silhouette is normal in size. Lungs are hypoinflated but grossly clear of acute infiltrates. No significant pleural effusion. Previous left axillary lymph node dissection noted. No pneumothorax.Impression:Lungs hypoinflated but grossly clear of acute infiltrates.Electronically signed by: TANNER HARMON (Nov 14, 2019 17:58:09)
[2019-11-14 18:12] VITALS: BMI 38.3
--- NOTE | 2019-11-14 18:36 | DR.H&P ---
H&P - History & Physical for Day of: H&P Date: 11/14/19 - Chief Complaint Chief Complaint: cellulitis, infection of left leg wound - History of Present Illness History of Present Illness: Patient is an 84 year old female that is a direct admit from Dr. Miller's office due to cellulitis and infection of wound to the left leg. Patient has been seeing [place] [facility]. Does report suture removal yesterday. Denies fever. Does report an increase in erythema since yesterday. Caregiver present reports drainage. Does report warmness to touch. Does report that she was initially given IV antibiotics at time of incident but has not taken anything PO. Patient will be admitted for further evaluation and treatment. - Past Medical History Past Medical History: Anxiety, Arthritis, Depression, Dyslipidemia, GERD, Sleep Apnea Additional Medical History: Fibromyalgia, Polyneuropathy, Clavicular fracture - Past Surgical History Surgical History: Cholecystectomy, Hysterectomy, Mastectomy, Other - Family History Family Medical History: Hypertension - Social History Does any household member use tobacco: No Alcohol Use: None Drug Use: None - Medications Home Medications: No Known Drug Allergies Allergy (Verified 11/14/19 16:56) CONTINUE taking the following medications buspirone 5 mg PO BID 11/14/19 [History] cyclobenzaprine 5 mg PO BID 11/14/19 [History] ibuprofen 800 mg PO TID PRN 11/14/19 [History] lorazepam 0.5 mg PO DAILY 11/14/19 [History] promethazine 25 mg PO Q6H PRN 11/14/19 [History] propranolol 20 mg PO BID 11/14/19 [History] - Review of Systems Constitutional: See HPI Eyes: See HPI ENT: See HPI Respiratory: See HPI Cardiovascular: See HPI Gastrointestinal: See HPI Genitourinary: See HPI Musculoskeletal: See HPI Skin: See HPI Neurological: See HPI - Physical Exam Vital Signs: Temperature 98.1 F Pulse Rate [Right Brachial] 86 Respiratory Rate 16 Blood Pressure [Right Arm] 118/62 O2 Sat by Pulse Oximetry 93 Oriented: Normal Eyes: Normal Ear: Normal Nose: Normal Throat: Normal Respiratory: Clear Throughout Cardiovascular: Normal : Normal Auscultation: Bowel Sounds: Normal Palpation: Normal Tenderness: Normal Skin: Wound Musculoskeletal: Normal Psychiatric: Normal Mood Description: Calm Speech Pattern: Clear - Assessment/Plan (1) Cellulitis Qualifiers: Site of cellulitis: extremity Site of cellulitis of extremity: lower extremity Laterality: left Qualified Code(s): L03.116 - Cellulitis of left lower limb Status: Acute Plan: IV antibiotics (2) Wound cellulitis Status: Acute Plan: IV antibiotics - Allergies Allergies/Adverse Reactions: Allergies Allergy/AdvReac Type Severity Reaction Status Date / Time No Known Drug Allergies Allergy Verified 11/14/19 16:56
[2019-11-14 18:47] LABS: ALANINE AMINOTRANSFERASE 13 Units/L (12-78); ALBUMIN 3.2 g/dL (3.4-5.0); ALKALINE PHOSPHATASE 86 Units/L (46-116); ASPARTATE AMINO TRANSFERASE 20 Units/L (15-37); BLOOD UREA NITROGEN 13 mg/dL (7-18); CALCIUM 9.2 mg/dL (8.5-10.1); CARBON DIOXIDE 32.1 mmol/L (21-32); CHLORIDE 101 mmol/L (98-107); COR CA(FOR HYPOALB) 9.8 mg/dL (8.5-10.1); CREATININE 1.28 mg/dL (0.55-1.02); SODIUM 138 mmol/L (136-145); TOTAL PROTEIN 7.2 g/dL (6.4-8.2); eGFR NON BLACK RACES 42 (>60)
[2019-11-14] MEDS: CLEOCIN 600 MG IV PREMIX 600 MG/50 ML BAG IV SCH (22:30)
[2019-11-15 05:33] LABS: BILIRUBIN,URINE NEGATIVE (NEGATIVE); BLOOD/HEMOGLOBIN,URINE NEGATIVE (NEGATIVE); GLUCOSE, URINE NEGATIVE (NEGATIVE); KETONES,URINE NEGATIVE (NEGATIVE); LEUKOCYTE ESTERASE ,URINE NEGATIVE (NEGATIVE); NITRITES,URINE NEGATIVE (NEGATIVE); PROTEIN,URINE NEGATIVE (NEGATIVE); UROBILINOGEN,URINE NORMAL (NORMAL)
[2019-11-15] MEDS: CLEOCIN 600 MG IV PREMIX 600 MG/50 ML BAG IV SCH ×3 (06:06→21:13)
[2019-11-15 06:26] LABS: BASOPHILS % (AUTO) 0.6 % (0.2-1.0); EOSINOPHILS # (AUTO) 0.2 x10^3/uL (0.0-0.2); EOSINOPHILS % (AUTO) 3.7 % (0.9-2.9); HEMATOCRIT 34.8 % (36.0-47.0); HEMOGLOBIN 11.5 g/dL (12.0-16.0); LYMPHOCYTES # (AUTO) 0.9 X10^3/uL (1.3-2.9); LYMPHOCYTES % (AUTO) 20.3 % (21.0-51.0); MEAN CORPUSCULAR HEMOGLOBIN 30.3 pg (27.0-34.0); MEAN CORPUSCULAR HGB CONC 33.1 g/dL (33.0-35.0); MEAN CORPUSCULAR VOLUME 91.4 fL (80.0-100.0); MEAN PLATELET VOLUME 10.8 fL (7.4-11.0); MONOCYTES # (AUTO) 0.6 x10^3/uL (0.3-0.8); MONOCYTES % (AUTO) 13.7 % (0.0-13.0); NEUTROPHILS # (AUTO) 2.8 x10^3/uL (2.2-4.8); NEUTROPHILS % (AUTO) 61.7 % (42.0-75.0); PLATELET COUNT 161 X10^3/uL (150.0-450.0); RED BLOOD COUNT 3.81 X10^6/uL (3.5-5.4); WHITE BLOOD COUNT 4.6 X10^3/uL (3.6-10.0)
[2019-11-15 06:31] LABS: ALANINE AMINOTRANSFERASE 9 Units/L (12-78); ALBUMIN 2.9 g/dL (3.4-5.0); ALKALINE PHOSPHATASE 80 Units/L (46-116); ASPARTATE AMINO TRANSFERASE 22 Units/L (15-37); BLOOD UREA NITROGEN 11 mg/dL (7-18); CALCIUM 9.4 mg/dL (8.5-10.1); CARBON DIOXIDE 31.9 mmol/L (21-32); CHLORIDE 103 mmol/L (98-107); COR CA(FOR HYPOALB) 10.3 mg/dL (8.5-10.1); CREATININE 1.11 mg/dL (0.55-1.02); SODIUM 139 mmol/L (136-145); TOTAL PROTEIN 6.7 g/dL (6.4-8.2); eGFR NON BLACK RACES 50 (>60)
[2019-11-15 07:56] LABS: APPEARANCE,URINE CLEAR (CLEAR); COLOR,URINE YELLOW (YELLOW)
[2019-11-15] MEDS: LOVENOX INJ 40 MG SYR SC SCH (10:00)
[2019-11-15] MEDS: SILVADENE TOP SCH ×2 (10:01→21:12)
[2019-11-15] MEDS: BUSPAR PO SCH ×2 (16:02→21:10)
[2019-11-15] MEDS: FLEXERIL TAB 10 MG PO SCH (21:11)
[2019-11-15] MEDS: INDERAL TAB 10 MG PO SCH (21:11)
[2019-11-16] MEDS: CLEOCIN 600 MG IV PREMIX 600 MG/50 ML BAG IV SCH ×3 (05:40→22:00)
[2019-11-16 06:23] LABS: BASOPHILS % (AUTO) 0.7 % (0.2-1.0); EOSINOPHILS # (AUTO) 0.2 x10^3/uL (0.0-0.2); EOSINOPHILS % (AUTO) 4.4 % (0.9-2.9); HEMATOCRIT 42.5 % (36.0-47.0); HEMOGLOBIN 13.9 g/dL (12.0-16.0); LYMPHOCYTES # (AUTO) 1.3 X10^3/uL (1.3-2.9); LYMPHOCYTES % (AUTO) 25.1 % (21.0-51.0); MEAN CORPUSCULAR HEMOGLOBIN 30.1 pg (27.0-34.0); MEAN CORPUSCULAR HGB CONC 32.7 g/dL (33.0-35.0); MEAN CORPUSCULAR VOLUME 92.1 fL (80.0-100.0); MEAN PLATELET VOLUME 10.8 fL (7.4-11.0); MONOCYTES # (AUTO) 0.6 x10^3/uL (0.3-0.8); MONOCYTES % (AUTO) 11.4 % (0.0-13.0); NEUTROPHILS # (AUTO) 2.9 x10^3/uL (2.2-4.8); NEUTROPHILS % (AUTO) 58.4 % (42.0-75.0); PLATELET COUNT 184 X10^3/uL (150.0-450.0); RED BLOOD COUNT 4.61 X10^6/uL (3.5-5.4); RED CELL DISTRIBUTION WIDTH 13.1 % (11.6-16.5)
[2019-11-16 07:07] LABS: ALANINE AMINOTRANSFERASE 12 Units/L (12-78); ALBUMIN 3.4 g/dL (3.4-5.0); ALKALINE PHOSPHATASE 102 Units/L (46-116); ASPARTATE AMINO TRANSFERASE 27 Units/L (15-37); BLOOD UREA NITROGEN 6 mg/dL (7-18); CARBON DIOXIDE 27.7 mmol/L (21-32); CHLORIDE 102 mmol/L (98-107); CREATININE 1.02 mg/dL (0.55-1.02); SODIUM 139 mmol/L (136-145); TOTAL PROTEIN 8.1 g/dL (6.4-8.2); eGFR NON BLACK RACES 55 (>60)
[2019-11-16] MEDS: BUSPAR PO SCH ×2 (09:49→20:20)
[2019-11-16] MEDS: LOVENOX INJ 40 MG SYR SC SCH (09:50)
[2019-11-16] MEDS: MICRO K EXTEN CAP 10 MEQ PO SCH (09:50)
[2019-11-16] MEDS: ATIVAN TAB 0.5 MG PO SCH (09:51)
[2019-11-16] MEDS: FLEXERIL TAB 10 MG PO SCH ×2 (09:51→20:18)
[2019-11-16] MEDS: INDERAL TAB 10 MG PO SCH ×2 (09:51→20:18)
[2019-11-16] MEDS: SILVADENE TOP SCH ×2 (09:52→20:24)
[2019-11-16] MEDS: ALDACTONE TAB 25 MG PO SCH (09:52)
--- NOTE | 2019-11-16 14:59 | DR.PROGNOT ---
Hospital Progress Notes - Progress Note for Day of: Progress Note Date: 11/16/19 - Chief Complaint Chief Complaint: less swelling Lt leg and less pain . only mild drainage . CBC and CMP are normal . afebrile . - Past Medical Family Social History Past Med/Fam/Surg Hx: No changes since H&P Allergies: Allergies No Known Drug Allergies Allergy (Verified 11/14/19 16:56) - Review Of Systems ROS: No change since H&P - Vital Signs Vital Signs: Temperature 98.2 F Pulse Rate [Right Brachial] 70 Respiratory Rate 18 Blood Pressure [Right Arm] 138/63 O2 Sat by Pulse Oximetry 94 - Physical Exam Oriented: Normal Eyes: Normal Ear: Normal Nose: Normal Throat: Normal Cardiovascular: Normal : Normal GI:Auscultation: Normal GI:Palpation: Normal GI: Tenderness: Normal Skin: Wound (large area 16x8 cm lateral lower leg with erythema and superficial skin sluffing .no abscess or necrosis ). negative: Other Musculoskeletal: Normal Psychiatric: Normal Mood Description: Calm Speech Pattern: Clear, Appropriate - Laboratory and Diagnostics Result Diagrams: 11/16/19 05:30 11/16/19 05:30 Labs: 11/14/19 19:20 Blood Blood Culture - Preliminary 11/14/19 17:24 Blood Blood Culture - Preliminary Laboratory WBC 5.0 X10^3/uL (3.6-10.0) 11/16/19 05:30 RBC 4.61 X10^6/uL (3.5-5.4) 11/16/19 05:30 Hgb 13.9 g/dL (12.0-16.0) D 11/16/19 05:30 Hct 42.5 % (36.0-47.0) 11/16/19 05:30 MCV 92.1 fL (80.0-100.0) 11/16/19 05:30 MCH 30.1 pg (27.0-34.0) 11/16/19 05:30 MCHC 32.7 g/dL (33.0-35.0) L 11/16/19 05:30 RDW 13.1 % (11.6-16.5) 11/16/19 05:30 Plt Count 184 X10^3/uL (150.0-450.0) 11/16/19 05:30 MPV 10.8 fL (7.4-11.0) 11/16/19 05:30 Neut % (Auto) 58.4 % (42.0-75.0) 11/16/19 05:30 Lymph % (Auto) 25.1 % (21.0-51.0) 11/16/19 05:30 [place] % (Auto) 11.4 % (0.0-13.0) 11/16/19 05:30 Eos % (Auto) 4.4 % (0.9-2.9) H 11/16/19 05:30 Baso % (Auto) 0.7 % (0.2-1.0) 11/16/19 05:30 Neut # (Auto) 2.9 x10^3/uL (2.2-4.8) 11/16/19 05:30 Lymph # (Auto) 1.3 X10^3/uL (1.3-2.9) 11/16/19 05:30 [place] # (Auto) 0.6 x10^3/uL (0.3-0.8) 11/16/19 05:30 Eos # (Auto) 0.2 x10^3/uL (0.0-0.2) 11/16/19 05:30 Baso # (Auto) 0.0 X10^3/uL (0.0-0.1) 11/16/19 05:30 Absolute Nucleated RBC 0.1 /100WBC 11/16/19 05:30 Sodium 139 mmol/L (136-145) 11/16/19 05:30 Corrected Sodium TNP 11/16/19 05:30 Potassium 3.8 mmol/L (3.5-5.1) 11/16/19 05:30 Chloride 102 mmol/L (98-107) 11/16/19 05:30 Carbon Dioxide 27.7 mmol/L (21-32) 11/16/19 05:30 BUN 6 mg/dL (7-18) L 11/16/19 05:30 Creatinine 1.02 mg/dL (0.55-1.02) 11/16/19 05:30 Est GFR (MDRD) Af Amer > 60 (>60) 11/16/19 05:30 Est GFR (MDRD) Non-Af 55 (>60) L 11/16/19 05:30 Glucose 88 mg/dL (65-99) 11/16/19 05:30 Calcium 10.0 mg/dL (8.5-10.1) 11/16/19 05:30 Corrected Calcium TNP 11/16/19 05:30 Total Bilirubin 0.40 mg/dL (0.2-1.0) 11/16/19 05:30 AST 27 Units/L (15-37) 11/16/19 05:30 ALT 12 Units/L (12-78) 11/16/19 05:30 Alkaline Phosphatase 102 Units/L (46-116) 11/16/19 05:30 Total Protein 8.1 g/dL (6.4-8.2) 11/16/19 05:30 Albumin 3.4 g/dL (3.4-5.0) 11/16/19 05:30 Globulin 4.7 g/dL (2.5-4.5) H 11/16/19 05:30 Albumin/Globulin Ratio 0.7 Ratio (1.1-2.1) L 11/16/19 05:30 Specimen Type Clean catch urine 11/15/19 05:20 Urine Color Yellow (YELLOW) 11/15/19 05:20 Urine Appearance Clear (CLEAR) 11/15/19 05:20 Urine pH 5.0 (5.0 - 8.0) 11/15/19 05:20 Ur Specific [place] 1.010 (1.000-1.030) 11/15/19 05:20 Urine Protein Negative (NEGATIVE) 11/15/19 05:20 Urine Glucose (UA) Negative (NEGATIVE) 11/15/19 05:20 Urine Ketones Negative (NEGATIVE) 11/15/19 05:20 Urine Occult Blood Negative (NEGATIVE) 11/15/19 05:20 Urine Nitrite Negative (NEGATIVE) 11/15/19 05:20 Urine Bilirubin Negative (NEGATIVE) 11/15/19 05:20 Urine Urobilinogen Normal (NORMAL) 11/15/19 05:20 Ur Leukocyte Esterase Negative (NEGATIVE) 11/15/19 05:20 - Assessment and Plan 1: infected Lt leg wound with cellulitis . same IV ATB and local care . - Problem Patient Problems: Patient Problems Cellulitis (Acute) L03.90 Wound cellulitis (Acute) L03.90
[2019-11-16] MEDS: NORCO 10/325 TAB PO PRN (20:16)
[2019-11-17] MEDS: CLEOCIN 600 MG IV PREMIX 600 MG/50 ML BAG IV SCH ×3 (06:00→21:06)
[2019-11-17 06:36] LABS: ALANINE AMINOTRANSFERASE 16 Units/L (12-78); ALKALINE PHOSPHATASE 88 Units/L (46-116); ASPARTATE AMINO TRANSFERASE 24 Units/L (15-37); BLOOD UREA NITROGEN 5 mg/dL (7-18); CALCIUM 9.6 mg/dL (8.5-10.1); CARBON DIOXIDE 26.8 mmol/L (21-32); CHLORIDE 103 mmol/L (98-107); COR CA(FOR HYPOALB) 10.4 mg/dL (8.5-10.1); CREATININE 0.98 mg/dL (0.55-1.02); SODIUM 140 mmol/L (136-145); TOTAL PROTEIN 7.2 g/dL (6.4-8.2); eGFR NON BLACK RACES 58 (>60)
[2019-11-17 06:55] LABS: BASOPHILS % (AUTO) 0.6 % (0.2-1.0); EOSINOPHILS # (AUTO) 0.2 x10^3/uL (0.0-0.2); EOSINOPHILS % (AUTO) 4.2 % (0.9-2.9); HEMATOCRIT 41.2 % (36.0-47.0); HEMOGLOBIN 13.4 g/dL (12.0-16.0); LYMPHOCYTES # (AUTO) 1.4 X10^3/uL (1.3-2.9); LYMPHOCYTES % (AUTO) 25.8 % (21.0-51.0); MEAN CORPUSCULAR HEMOGLOBIN 29.9 pg (27.0-34.0); MEAN CORPUSCULAR HGB CONC 32.6 g/dL (33.0-35.0); MEAN PLATELET VOLUME 11.4 fL (7.4-11.0); MONOCYTES # (AUTO) 0.8 x10^3/uL (0.3-0.8); MONOCYTES % (AUTO) 15.5 % (0.0-13.0); NEUTROPHILS # (AUTO) 2.9 x10^3/uL (2.2-4.8); NEUTROPHILS % (AUTO) 53.9 % (42.0-75.0); PLATELET COUNT 139 X10^3/uL (150.0-450.0); RED BLOOD COUNT 4.48 X10^6/uL (3.5-5.4); RED CELL DISTRIBUTION WIDTH 13.5 % (11.6-16.5)
[2019-11-17 07:18] LABS: WHITE BLOOD COUNT 6.5 X10^3/uL (3.6-10.0)
[2019-11-17 07:19] LABS: PLATELET MORPHOLOGY COMMENT NORMAL (NORMAL)
[2019-11-17] MEDS: SILVADENE TOP SCH ×2 (10:50→21:05)
[2019-11-17] MEDS: LOVENOX INJ 40 MG SYR SC SCH (10:50)
[2019-11-17] MEDS: ALDACTONE TAB 25 MG PO SCH (10:51)
[2019-11-17] MEDS: FLEXERIL TAB 10 MG PO SCH ×2 (10:51→21:05)
[2019-11-17] MEDS: BUSPAR PO SCH ×2 (10:52→21:05)
[2019-11-17] MEDS: INDERAL TAB 10 MG PO SCH ×2 (10:52→21:05)
[2019-11-17] MEDS: ATIVAN TAB 0.5 MG PO SCH (10:53)
[2019-11-17] MEDS: MICRO K EXTEN CAP 10 MEQ PO SCH (10:53)
[2019-11-17] MEDS ORDERED: NS 250 ML IV 250 ML IV ONE (14:00)
[2019-11-17] MEDS: NS 250 ML IV 250 ML IV SCH (14:29)
[2019-11-17] MEDS: NORCO 10/325 TAB PO PRN (21:22)
[2019-11-18] MEDS: NS 250 ML IV 250 ML IV SCH ×2 (05:57→18:17)
[2019-11-18] MEDS: CLEOCIN 600 MG IV PREMIX 600 MG/50 ML BAG IV SCH ×3 (05:58→21:09)
[2019-11-18 07:18] LABS: BASOPHILS % (AUTO) 0.7 % (0.2-1.0); EOSINOPHILS # (AUTO) 0.2 x10^3/uL (0.0-0.2); EOSINOPHILS % (AUTO) 4.6 % (0.9-2.9); HEMATOCRIT 41.3 % (36.0-47.0); HEMOGLOBIN 13.5 g/dL (12.0-16.0); LYMPHOCYTES # (AUTO) 0.8 X10^3/uL (1.3-2.9); LYMPHOCYTES % (AUTO) 20.1 % (21.0-51.0); MEAN CORPUSCULAR HEMOGLOBIN 29.8 pg (27.0-34.0); MEAN CORPUSCULAR HGB CONC 32.7 g/dL (33.0-35.0); MEAN CORPUSCULAR VOLUME 91.3 fL (80.0-100.0); MEAN PLATELET VOLUME 10.2 fL (7.4-11.0); MONOCYTES # (AUTO) 0.6 x10^3/uL (0.3-0.8); NEUTROPHILS # (AUTO) 2.5 x10^3/uL (2.2-4.8); NEUTROPHILS % (AUTO) 60.6 % (42.0-75.0); PLATELET COUNT 167 X10^3/uL (150.0-450.0); RED BLOOD COUNT 4.52 X10^6/uL (3.5-5.4); RED CELL DISTRIBUTION WIDTH 13.4 % (11.6-16.5); WHITE BLOOD COUNT 4.2 X10^3/uL (3.6-10.0)
[2019-11-18 07:28] LABS: ALANINE AMINOTRANSFERASE 18 Units/L (12-78); ALKALINE PHOSPHATASE 89 Units/L (46-116); ASPARTATE AMINO TRANSFERASE 33 Units/L (15-37); BLOOD UREA NITROGEN 6 mg/dL (7-18); CALCIUM 9.6 mg/dL (8.5-10.1); CARBON DIOXIDE 29.9 mmol/L (21-32); CHLORIDE 105 mmol/L (98-107); COR CA(FOR HYPOALB) 10.4 mg/dL (8.5-10.1); CREATININE 1.02 mg/dL (0.55-1.02); SODIUM 140 mmol/L (136-145); TOTAL PROTEIN 7.2 g/dL (6.4-8.2); eGFR NON BLACK RACES 55 (>60)
[2019-11-18] MEDS: LOVENOX INJ 40 MG SYR SC SCH (09:38)
[2019-11-18] MEDS: BUSPAR PO SCH ×2 (09:39→21:09)
[2019-11-18] MEDS: MICRO K EXTEN CAP 10 MEQ PO SCH (09:39)
[2019-11-18] MEDS: INDERAL TAB 10 MG PO SCH ×2 (09:39→21:09)
[2019-11-18] MEDS: ALDACTONE TAB 25 MG PO SCH (09:39)
[2019-11-18] MEDS: FLEXERIL TAB 10 MG PO SCH ×2 (09:39→21:09)
[2019-11-18] MEDS: ATIVAN TAB 0.5 MG PO SCH (09:40)
[2019-11-18] MEDS: SILVADENE TOP SCH ×2 (09:40→21:09)
[2019-11-18] MEDS: NORCO 10/325 TAB PO PRN (21:10)
[2019-11-19] MEDS: NS 250 ML IV 250 ML IV SCH (05:54)
[2019-11-19] MEDS: CLEOCIN 600 MG IV PREMIX 600 MG/50 ML BAG IV SCH ×3 (05:54→21:32)
[2019-11-19 07:03] LABS: BASOPHILS % (AUTO) 0.8 % (0.2-1.0); EOSINOPHILS # (AUTO) 0.2 x10^3/uL (0.0-0.2); EOSINOPHILS % (AUTO) 4.7 % (0.9-2.9); HEMATOCRIT 40.5 % (36.0-47.0); HEMOGLOBIN 13.4 g/dL (12.0-16.0); LYMPHOCYTES # (AUTO) 0.8 X10^3/uL (1.3-2.9); LYMPHOCYTES % (AUTO) 18.2 % (21.0-51.0); MEAN CORPUSCULAR HGB CONC 33.1 g/dL (33.0-35.0); MEAN CORPUSCULAR VOLUME 90.7 fL (80.0-100.0); MEAN PLATELET VOLUME 10.3 fL (7.4-11.0); MONOCYTES # (AUTO) 0.6 x10^3/uL (0.3-0.8); MONOCYTES % (AUTO) 14.5 % (0.0-13.0); NEUTROPHILS # (AUTO) 2.8 x10^3/uL (2.2-4.8); NEUTROPHILS % (AUTO) 61.8 % (42.0-75.0); PLATELET COUNT 156 X10^3/uL (150.0-450.0); RED BLOOD COUNT 4.46 X10^6/uL (3.5-5.4); RED CELL DISTRIBUTION WIDTH 13.4 % (11.6-16.5); WHITE BLOOD COUNT 4.5 X10^3/uL (3.6-10.0)
[2019-11-19 07:26] LABS: ALANINE AMINOTRANSFERASE 30 Units/L (12-78); ALBUMIN 2.9 g/dL (3.4-5.0); ALKALINE PHOSPHATASE 83 Units/L (46-116); ASPARTATE AMINO TRANSFERASE 44 Units/L (15-37); BLOOD UREA NITROGEN 7 mg/dL (7-18); CALCIUM 9.8 mg/dL (8.5-10.1); CARBON DIOXIDE 27.8 mmol/L (21-32); CHLORIDE 104 mmol/L (98-107); COR CA(FOR HYPOALB) 10.7 mg/dL (8.5-10.1); CREATININE 0.97 mg/dL (0.55-1.02); SODIUM 139 mmol/L (136-145); TOTAL PROTEIN 6.8 g/dL (6.4-8.2); eGFR NON BLACK RACES 58 (>60)
[2019-11-19] MEDS: MICRO K EXTEN CAP 10 MEQ PO SCH (08:34)
[2019-11-19] MEDS: BUSPAR PO SCH ×2 (08:35→20:16)
[2019-11-19] MEDS: INDERAL TAB 10 MG PO SCH ×2 (08:35→20:16)
[2019-11-19] MEDS: ALDACTONE TAB 25 MG PO SCH (08:36)
[2019-11-19] MEDS: FLEXERIL TAB 10 MG PO SCH ×2 (08:37→20:14)
[2019-11-19] MEDS: ATIVAN TAB 0.5 MG PO SCH (08:38)
[2019-11-19] MEDS: SILVADENE TOP SCH ×2 (08:39→20:17)
[2019-11-19] MEDS: LOVENOX INJ 40 MG SYR SC SCH (08:44)
[2019-11-19] MEDS ORDERED: PHENERGAN INJ 25 MG IM PRN (14:34)
[2019-11-19] MEDS ORDERED: PHENERGAN INJ 25 MG IM ONE (14:40)
[2019-11-19] MEDS: NORCO 10/325 TAB PO PRN (14:49)
[2019-11-20] MEDS: CLEOCIN 600 MG IV PREMIX 600 MG/50 ML BAG IV SCH ×3 (06:27→21:06)
[2019-11-20] MEDS: ALDACTONE TAB 25 MG PO SCH (09:00)
[2019-11-20] MEDS: ATIVAN TAB 0.5 MG PO SCH (09:00)
[2019-11-20] MEDS: MICRO K EXTEN CAP 10 MEQ PO SCH (09:01)
[2019-11-20] MEDS: BUSPAR PO SCH ×2 (09:02→20:15)
[2019-11-20] MEDS: FLEXERIL TAB 10 MG PO SCH ×2 (09:02→20:13)
[2019-11-20] MEDS: INDERAL TAB 10 MG PO SCH ×2 (09:03→20:14)
[2019-11-20] MEDS: LOVENOX INJ 40 MG SYR SC SCH (09:06)
[2019-11-20] MEDS: SILVADENE TOP SCH ×2 (09:06→20:16)
[2019-11-20] MEDS: NS 250 ML IV 250 ML IV SCH ×2 (17:57→21:04)
[2019-11-20] MEDS: NORCO 10/325 TAB PO PRN (20:20)
[2019-11-21] MEDS: CLEOCIN 600 MG IV PREMIX 600 MG/50 ML BAG IV SCH ×3 (05:32→21:18)
[2019-11-21] MEDS: NS 250 ML IV 250 ML IV SCH ×3 (05:32→21:11)
[2019-11-21 05:46] LABS: BASOPHILS % (AUTO) 0.8 % (0.2-1.0); EOSINOPHILS # (AUTO) 0.2 x10^3/uL (0.0-0.2); HEMATOCRIT 39.6 % (36.0-47.0); LYMPHOCYTES % (AUTO) 23.4 % (21.0-51.0); MEAN CORPUSCULAR HEMOGLOBIN 29.9 pg (27.0-34.0); MEAN CORPUSCULAR HGB CONC 32.8 g/dL (33.0-35.0); MEAN CORPUSCULAR VOLUME 91.2 fL (80.0-100.0); MEAN PLATELET VOLUME 11.3 fL (7.4-11.0); MONOCYTES # (AUTO) 0.7 x10^3/uL (0.3-0.8); MONOCYTES % (AUTO) 15.5 % (0.0-13.0); NEUTROPHILS # (AUTO) 2.4 x10^3/uL (2.2-4.8); NEUTROPHILS % (AUTO) 56.3 % (42.0-75.0); PLATELET COUNT 155 X10^3/uL (150.0-450.0); RED BLOOD COUNT 4.34 X10^6/uL (3.5-5.4); RED CELL DISTRIBUTION WIDTH 13.3 % (11.6-16.5); WHITE BLOOD COUNT 4.3 X10^3/uL (3.6-10.0)
[2019-11-21 05:57] LABS: ALANINE AMINOTRANSFERASE 32 Units/L (12-78); ALBUMIN 2.8 g/dL (3.4-5.0); ALKALINE PHOSPHATASE 78 Units/L (46-116); ASPARTATE AMINO TRANSFERASE 38 Units/L (15-37); BLOOD UREA NITROGEN 10 mg/dL (7-18); CALCIUM 9.5 mg/dL (8.5-10.1); CARBON DIOXIDE 28.5 mmol/L (21-32); CHLORIDE 106 mmol/L (98-107); COR CA(FOR HYPOALB) 10.5 mg/dL (8.5-10.1); CREATININE 1.08 mg/dL (0.55-1.02); SODIUM 141 mmol/L (136-145); TOTAL PROTEIN 6.5 g/dL (6.4-8.2); eGFR NON BLACK RACES 51 (>60)
[2019-11-21 06:12] LABS: BAND NEUTROPHILS % 4 % (0-10); PLATELET MORPHOLOGY COMMENT NORMAL (NORMAL)
[2019-11-21] MEDS: ALDACTONE TAB 25 MG PO SCH (09:39)
[2019-11-21] MEDS: ATIVAN TAB 0.5 MG PO SCH (09:39)
[2019-11-21] MEDS: INDERAL TAB 10 MG PO SCH ×2 (09:39→21:08)
[2019-11-21] MEDS: FLEXERIL TAB 10 MG PO SCH ×2 (09:39→21:09)
[2019-11-21] MEDS: MICRO K EXTEN CAP 10 MEQ PO SCH (09:40)
[2019-11-21] MEDS: BUSPAR PO SCH ×2 (09:40→21:10)
[2019-11-21] MEDS: LOVENOX INJ 40 MG SYR SC SCH (09:41)
[2019-11-21] MEDS: SILVADENE TOP SCH ×2 (09:41→21:12)
[2019-11-21] MEDS: NORCO 10/325 TAB PO PRN (13:44)
[2019-11-22] MEDS: CLEOCIN 600 MG IV PREMIX 600 MG/50 ML BAG IV SCH ×2 (05:41→13:37)
[2019-11-22] MEDS: NORCO 10/325 TAB PO PRN (05:59)
[2019-11-22] MEDS: FLEXERIL TAB 10 MG PO SCH (09:04)
[2019-11-22] MEDS: INDERAL TAB 10 MG PO SCH (09:07)
[2019-11-22] MEDS: ATIVAN TAB 0.5 MG PO SCH (09:07)
[2019-11-22] MEDS: ALDACTONE TAB 25 MG PO SCH (09:07)
[2019-11-22] MEDS: MICRO K EXTEN CAP 10 MEQ PO SCH (09:08)
[2019-11-22] MEDS: BUSPAR PO SCH (09:08)
[2019-11-22] MEDS: NS 250 ML IV 250 ML IV SCH ×2 (09:08→13:40)
[2019-11-22] MEDS: SILVADENE TOP SCH (09:09)
[2019-11-22] MEDS: LOVENOX INJ 40 MG SYR SC SCH (09:09)
[2019-11-22 14:12] VITALS: BP 114/59
== END 2019-11-22 15:20 | disposition home health service (06) | DRG 603 ==
LOC: MED/SURG 16:18 → UNDODISIN 11-19 17:13
PROVIDERS: ADMIT Internal Medicine; ATTEND Internal Medicine
DX: M51.37 Other intervertebral disc degeneration, lumbosacral region; Z91.81 History of falling; L03.116 Cellulitis of left lower limb; G62.9 Polyneuropathy, unspecified; Z11.59 Encounter for screening for other viral diseases; I87.8 Other specified disorders of veins; T81.41XA Infection following a procedure, superficial incisional surgical site, initial encounter
CPT/HCPCS: 36415; 71010; 71045; 80053; 81003; 85025; 87040; 97162; 97166; 97530; 97535; A4216; A4222; J1650; J2550; J7050; S0077

== ENCOUNTER 2019-11-28 15:49 | Inpatient (IN) ==
[2019-11-28] MEDS ORDERED: VANCOMYCIN HCL 1 G in D5W 250 ML IV 250 ML IV ONE (18:18)
[2019-11-28] MEDS ORDERED: PHARMACY CONSULT - VANCOMYCIN XX SCH (19:00)
[2019-11-28] MEDS ORDERED: NS 1000 ML 1,000 ML IV SCH (19:00)
[2019-11-28 19:50] LABS: BASOPHILS % (AUTO) 0.7 % (0.2-1.0); EOSINOPHILS # (AUTO) 0.2 x10^3/uL (0.0-0.2); HEMOGLOBIN 12.8 g/dL (12.0-16.0); LYMPHOCYTES % (AUTO) 15.1 % (21.0-51.0); MEAN CORPUSCULAR HEMOGLOBIN 29.8 pg (27.0-34.0); MEAN CORPUSCULAR HGB CONC 32.9 g/dL (33.0-35.0); MEAN CORPUSCULAR VOLUME 90.5 fL (80.0-100.0); MEAN PLATELET VOLUME 11.4 fL (7.4-11.0); MONOCYTES # (AUTO) 0.6 x10^3/uL (0.3-0.8); MONOCYTES % (AUTO) 9.8 % (0.0-13.0); NEUTROPHILS # (AUTO) 4.5 x10^3/uL (2.2-4.8); NEUTROPHILS % (AUTO) 71.4 % (42.0-75.0); PLATELET COUNT 151 X10^3/uL (150.0-450.0); RED BLOOD COUNT 4.31 X10^6/uL (3.5-5.4); RED CELL DISTRIBUTION WIDTH 13.5 % (11.6-16.5); WHITE BLOOD COUNT 6.3 X10^3/uL (3.6-10.0)
[2019-11-28 20:34] LABS: ALANINE AMINOTRANSFERASE 20 Units/L (12-78); ALBUMIN 3.4 g/dL (3.4-5.0); ALKALINE PHOSPHATASE 84 Units/L (46-116); ASPARTATE AMINO TRANSFERASE 25 Units/L (15-37); BLOOD UREA NITROGEN 17 mg/dL (7-18); CALCIUM 9.4 mg/dL (8.5-10.1); CARBON DIOXIDE 33.4 mmol/L (21-32); CHLORIDE 100 mmol/L (98-107); COR NA(FOR HYPERGLY) 136 mmol/L (136-145); CREATININE 1.37 mg/dL (0.55-1.02); SODIUM 135 mmol/L (136-145); TOTAL PROTEIN 7.2 g/dL (6.4-8.2); eGFR NON BLACK RACES 39 (>60)
[2019-11-29] MEDS ORDERED: NORCO 10/325 TAB ONE (04:32)
[2019-11-29] MEDS: NORCO 10/325 TAB PO PRN ×2 (04:34→19:27)
[2019-11-29 06:31] LABS: BASOPHILS % (AUTO) 0.6 % (0.2-1.0); EOSINOPHILS # (AUTO) 0.3 x10^3/uL (0.0-0.2); EOSINOPHILS % (AUTO) 4.1 % (0.9-2.9); HEMATOCRIT 39.1 % (36.0-47.0); HEMOGLOBIN 13.1 g/dL (12.0-16.0); LYMPHOCYTES # (AUTO) 1.4 X10^3/uL (1.3-2.9); LYMPHOCYTES % (AUTO) 19.2 % (21.0-51.0); MEAN CORPUSCULAR HEMOGLOBIN 30.3 pg (27.0-34.0); MEAN CORPUSCULAR HGB CONC 33.4 g/dL (33.0-35.0); MEAN CORPUSCULAR VOLUME 90.7 fL (80.0-100.0); MONOCYTES # (AUTO) 0.9 x10^3/uL (0.3-0.8); MONOCYTES % (AUTO) 12.9 % (0.0-13.0); NEUTROPHILS # (AUTO) 4.6 x10^3/uL (2.2-4.8); NEUTROPHILS % (AUTO) 63.2 % (42.0-75.0); PLATELET COUNT 135 X10^3/uL (150.0-450.0); RED BLOOD COUNT 4.32 X10^6/uL (3.5-5.4); RED CELL DISTRIBUTION WIDTH 13.4 % (11.6-16.5)
[2019-11-29 06:44] LABS: ALANINE AMINOTRANSFERASE 20 Units/L (12-78); ALBUMIN 3.2 g/dL (3.4-5.0); ALKALINE PHOSPHATASE 77 Units/L (46-116); ASPARTATE AMINO TRANSFERASE 31 Units/L (15-37); BLOOD UREA NITROGEN 15 mg/dL (7-18); CALCIUM 9.2 mg/dL (8.5-10.1); CHLORIDE 101 mmol/L (98-107); COR CA(FOR HYPOALB) 9.8 mg/dL (8.5-10.1); CREATININE 1.02 mg/dL (0.55-1.02); SODIUM 136 mmol/L (136-145); TOTAL PROTEIN 6.8 g/dL (6.4-8.2); eGFR NON BLACK RACES 55 (>60)
[2019-11-29 06:57] LABS: WHITE BLOOD COUNT 7.3 X10^3/uL (3.6-10.0)
[2019-11-29 06:58] LABS: GIANT PLATELET PRESENT; PLATELET MORPHOLOGY COMMENT NORMAL (NORMAL)
[2019-11-29] MEDS ORDERED: ZOFRAN INJ 4 MG VIAL ONE (09:00)
[2019-11-29] MEDS ORDERED: SILVADENE TOP SCH (09:00)
[2019-11-29] MEDS ORDERED: SUPRANE ONE (09:00)
[2019-11-29] MEDS ORDERED: EPHEDRINE SULFATE INJ ONE (09:00)
[2019-11-29] MEDS ORDERED: DIPRIVAN VIAL ONE (09:00)
[2019-11-29] MEDS: ALDACTONE TAB 25 MG PO SCH (09:35)
[2019-11-29] MEDS: CYMBALTA PO SCH (09:35)
[2019-11-29] MEDS: INDERAL TAB 10 MG PO SCH ×2 (09:35→21:01)
[2019-11-29] MEDS: MICRO K EXTEN CAP 10 MEQ PO SCH (09:35)
[2019-11-29] MEDS: BUSPAR PO SCH ×2 (09:36→21:00)
[2019-11-29] MEDS: ATIVAN TAB 0.5 MG PO SCH (11:02)
[2019-11-29] MEDS: NORCO 10/325 TAB PO SCH ×2 (11:02→16:56)
[2019-11-29] MEDS: LASIX PO SCH (11:02)
--- NOTE | 2019-11-29 12:22 | DR.H&P ---
H&P - History & Physical for Day of: H&P Date: 11/28/19 - Chief Complaint Chief Complaint: Leg wound not healing - History of Present Illness History of Present Illness: The patient is an 84yo WF who presents to [facility] office for hospital follow up for left leg cellulitis following a fall. Patient had skin tear to leg. Patient has been taking Keflex and states leg is increasing in redness. States that she is staying nauseated with the Keflex. States leg does hurt to walk on. Is keeping it covered. Is having some oozing from wound. - Past Medical History Past Medical History: Anxiety, Arthritis, Depression, Dyslipidemia, GERD, Sleep Apnea Additional Medical History: Fibromyalgia, Polyneuropathy, Clavicular fracture - Past Surgical History Surgical History: Cholecystectomy, Hysterectomy, Mastectomy, Other - Family History Family Medical History: Hypertension - Social History Does patient currently use any type of tobacco product: No Have you used tobacco products in the last 12 months: No Type of Tobacco Use: None Does any household member use tobacco: No Alcohol Use: None Drug Use: None Prescription drug monitoring program results: PDMP reviewed and no concerns identified - Medications Home Medications: No Known Drug Allergies Allergy (Verified 11/14/19 16:56) CONTINUE taking the following medications omeprazole 40 mg PO HS 11/28/19 [History] - Review of Systems Constitutional: Malaise Eyes: No Symptoms Reported ENT: No Symptoms Reported Respiratory: No Symptoms Reported Cardiovascular: No Symptoms Reported Gastrointestinal: Nausea Genitourinary: No Symptoms Reported Musculoskeletal: Back Pain, Leg Pain Skin: Wound (LLE outer flores with eschar covering wound measuring [id number] ) Neurological: No Symptoms Reported - Physical Exam Vital Signs: Temperature 97.3 F Pulse Rate [Right Brachial] 85 Respiratory Rate 20 Blood Pressure [Right Arm] 110/53 O2 Sat by Pulse Oximetry 95 Oriented: Normal Eyes: Normal Ear: Normal Nose: Normal Throat: Normal Respiratory: Clear Throughout Cardiovascular: Normal : Normal Auscultation: Bowel Sounds: Normal Palpation: Normal Tenderness: Normal Skin: Red (RLE wound circumferential), Tender, Wound (LLE outer flores with eschar covering wound measuring [id number] ) Musculoskeletal: Leg, Back:Lumbar, Swelling Psychiatric: Normal Mood Description: Calm Affect: Normal Speech Pattern: Clear - Assessment/Plan (1) Wound cellulitis Status: Acute Plan: IV vanco, Surgical consult, Labs (2) Open wound Status: Acute Plan: Surgical consult, Vanco - Review Patient was examined?: Yes - Allergies Allergies/Adverse Reactions: Allergies Allergy/AdvReac Type Severity Reaction Status Date / Time No Known Drug Allergies Allergy Verified 11/14/19 16:56
--- NOTE | 2019-11-29 12:28 | PCM.PROG ---
Progress Note - Progress Note for Day of Date of Exam: 11/29/19 - Subjective Subjective: 84yo WF admitted due to open wound with cellulitis to [facility]. Surgery evaluation in process. Patient states wound is to be cleaned out and she is going to get a port placed. Denies any other complaints at present. - Past Medical Family Social History Past Med/Fam/Surg Hx: No changes since H&P Allergies: Allergies No Known Drug Allergies Allergy (Verified 11/14/19 16:56) - Review of Systems ROS: No change since H&P - Vital Signs and I&O's Vital Signs: Temperature 97.3 F Pulse Rate [Right Brachial] 85 Respiratory Rate 20 Blood Pressure [Right Arm] 110/53 O2 Sat by Pulse Oximetry 95 Intake and Output: Intake & Output 11/26/19 11/27/19 11/28/19 11/29/19 23:59 23:59 23:59 23:59 Intake Total 200 / 200 490 / 490 Balance 200 / 200 490 / 490 - Physical Exam Oriented: Normal Eyes: Normal Ear: Normal Nose: Normal Throat: Normal Respiratory: Normal Cardiovascular: Normal : Normal Auscultation: Bowel Sounds: Normal Tenderness: Normal Skin: Red (RLE wound circumferential), Tender, Wound (LLE outer flores with eschar covering wound measuring [id number] ) Musculoskeletal: Leg, Back:Lumbar, Swelling Psychiatric: Normal Mood Description: Calm Affect: Normal Speech Pattern: Clear - Laboratory and Diagnostics Result Diagrams: 11/29/19 05:45 11/29/19 05:45 Labs: 11/28/19 21:08 Leg - Left Gram Stain - Final 11/28/19 21:08 Leg - Left Wound Culture - Preliminary Laboratory WBC 7.3 X10^3/uL (3.6-10.0) 11/29/19 05:45 RBC 4.32 X10^6/uL (3.5-5.4) 11/29/19 05:45 Hgb 13.1 g/dL (12.0-16.0) 11/29/19 05:45 Hct 39.1 % (36.0-47.0) 11/29/19 05:45 MCV 90.7 fL (80.0-100.0) 11/29/19 05:45 MCH 30.3 pg (27.0-34.0) 11/29/19 05:45 MCHC 33.4 g/dL (33.0-35.0) 11/29/19 05:45 RDW 13.4 % (11.6-16.5) 11/29/19 05:45 Plt Count 135 X10^3/uL (150.0-450.0) L 11/29/19 05:45 Plt Count Comment Adequate (ADEQUATE) 11/29/19 05:45 MPV 12.0 fL (7.4-11.0) H 11/29/19 05:45 Neut % (Auto) 63.2 % (42.0-75.0) 11/29/19 05:45 Lymph % (Auto) 19.2 % (21.0-51.0) L 11/29/19 05:45 [place] % (Auto) 12.9 % (0.0-13.0) 11/29/19 05:45 Eos % (Auto) 4.1 % (0.9-2.9) H 11/29/19 05:45 Baso % (Auto) 0.6 % (0.2-1.0) 11/29/19 05:45 Neut # (Auto) 4.6 x10^3/uL (2.2-4.8) 11/29/19 05:45 Lymph # (Auto) 1.4 X10^3/uL (1.3-2.9) 11/29/19 05:45 [place] # (Auto) 0.9 x10^3/uL (0.3-0.8) H 11/29/19 05:45 Eos # (Auto) 0.3 x10^3/uL (0.0-0.2) H 11/29/19 05:45 Baso # (Auto) 0.0 X10^3/uL (0.0-0.1) 11/29/19 05:45 Absolute Nucleated RBC 0.4 /100WBC 11/29/19 05:45 Plt Clumps, EDTA Rare 11/29/19 05:45 Giant Platelets Present 11/29/19 05:45 Plt Morphology Comment Normal (NORMAL) 11/29/19 05:45 RBC Morphology Normal (NORMAL) 11/29/19 05:45 Sodium 136 mmol/L (136-145) 11/29/19 05:45 Corrected Sodium TNP 11/29/19 05:45 Potassium 4.7 mmol/L (3.5-5.1) 11/29/19 05:45 Chloride 101 mmol/L (98-107) 11/29/19 05:45 Carbon Dioxide 27.0 mmol/L (21-32) 11/29/19 05:45 BUN 15 mg/dL (7-18) 11/29/19 05:45 Creatinine 1.02 mg/dL (0.55-1.02) 11/29/19 05:45 Est GFR (MDRD) Af Amer > 60 (>60) 11/29/19 05:45 Est GFR (MDRD) Non-Af 55 (>60) L 11/29/19 05:45 Glucose 81 mg/dL (65-99) 11/29/19 05:45 Calcium 9.2 mg/dL (8.5-10.1) 11/29/19 05:45 Corrected Calcium 9.8 mg/dL (8.5-10.1) 11/29/19 05:45 Total Bilirubin 0.60 mg/dL (0.2-1.0) 11/29/19 05:45 AST 31 Units/L (15-37) 11/29/19 05:45 ALT 20 Units/L (12-78) 11/29/19 05:45 Alkaline Phosphatase 77 Units/L (46-116) 11/29/19 05:45 Total Protein 6.8 g/dL (6.4-8.2) 11/29/19 05:45 Albumin 3.2 g/dL (3.4-5.0) L 11/29/19 05:45 Globulin 3.6 g/dL (2.5-4.5) 11/29/19 05:45 Albumin/Globulin Ratio 0.9 Ratio (1.1-2.1) L 11/29/19 05:45 - Plan (1) Wound cellulitis Status: Acute Plan: IV vanco, Surgical consult, Labs (2) Open wound Status: Acute Plan: Surgical consult, Vanco (3) Chronic pain Status: Acute Qualifiers: Chronic pain type: chronic pain syndrome Qualified Code(s): G89.4 - Chronic pain syndrome Narrative Support Text: RA, LBP Plan: HOME MEDS (4) HTN (hypertension) Status: Chronic Plan: Monitor BP
[2019-11-29 13:24] VITALS: BMI 38.1
[2019-11-29] MEDS ORDERED: BETADINE SOLN ONE (14:15)
[2019-11-29] MEDS ORDERED: FENTANYL INJ 100 mcg ONE (14:35)
[2019-11-29] MEDS ORDERED: POLYMYXIN B SULFATE ONE (14:45)
[2019-11-29] MEDS ORDERED: XYLOCAINE 1 % (PLAIN) ONE (14:46)
[2019-11-29] MEDS: NS 1000 ML 1,000 ML IV SCH (15:06)
[2019-11-29] MEDS: FLEXERIL TAB 10 MG PO SCH ×2 (15:06→21:00)
[2019-11-29] MEDS ORDERED: DILAUDID INJ IVP PRN (15:48)
[2019-11-29] MEDS ORDERED: PHENERGAN INJ 25 MG IM PRN (15:48)
[2019-11-29] MEDS ORDERED: BENADRYL INJ 50 MG VIAL IVP PRN (15:48)
[2019-11-29] MEDS ORDERED: REGLAN INJ 10 MG VIAL IVP PRN (15:48)
[2019-11-29] MEDS ORDERED: ZOFRAN INJ 4 MG VIAL IVP PRN (15:48)
[2019-11-29] MEDS: VANCOMYCIN HCL 1 G in D5W 250 ML IV 250 ML IV SCH (18:02)
[2019-11-29] MEDS: PriLOSEC PO SCH (20:59)
[2019-11-30] MEDS: FLEXERIL TAB 10 MG PO SCH ×3 (05:42→21:06)
[2019-11-30] MEDS: LOVENOX INJ 40 MG SYR SC SCH ×2 (07:09→09:32)
[2019-11-30] MEDS: BUSPAR PO SCH ×2 (09:11→20:01)
[2019-11-30] MEDS: MICRO K EXTEN CAP 10 MEQ PO SCH (09:12)
[2019-11-30] MEDS: ALDACTONE TAB 25 MG PO SCH (09:12)
[2019-11-30] MEDS: INDERAL TAB 10 MG PO SCH ×2 (09:12→19:58)
[2019-11-30] MEDS: ATIVAN TAB 0.5 MG PO SCH (09:13)
[2019-11-30] MEDS: CYMBALTA PO SCH (09:13)
[2019-11-30] MEDS: NORCO 10/325 TAB PO SCH ×2 (09:13→17:31)
[2019-11-30] MEDS: LASIX PO SCH (09:13)
[2019-11-30 09:49] LABS: BASOPHILS # (AUTO) 0.1 X10^3/uL (0.0-0.1); EOSINOPHILS # (AUTO) 0.3 x10^3/uL (0.0-0.2); EOSINOPHILS % (AUTO) 3.6 % (0.9-2.9); HEMATOCRIT 38.4 % (36.0-47.0); HEMOGLOBIN 12.6 g/dL (12.0-16.0); LYMPHOCYTES # (AUTO) 1.4 X10^3/uL (1.3-2.9); LYMPHOCYTES % (AUTO) 17.6 % (21.0-51.0); MEAN CORPUSCULAR HGB CONC 32.7 g/dL (33.0-35.0); MEAN CORPUSCULAR VOLUME 91.6 fL (80.0-100.0); MEAN PLATELET VOLUME 11.3 fL (7.4-11.0); MONOCYTES # (AUTO) 0.8 x10^3/uL (0.3-0.8); NEUTROPHILS # (AUTO) 5.1 x10^3/uL (2.2-4.8); NEUTROPHILS % (AUTO) 66.8 % (42.0-75.0); PLATELET COUNT 109 X10^3/uL (150.0-450.0); RED BLOOD COUNT 4.19 X10^6/uL (3.5-5.4); RED CELL DISTRIBUTION WIDTH 13.5 % (11.6-16.5); WHITE BLOOD COUNT 7.7 X10^3/uL (3.6-10.0)
[2019-11-30 10:00] LABS: ALANINE AMINOTRANSFERASE 19 Units/L (12-78); ALKALINE PHOSPHATASE 84 Units/L (46-116); ASPARTATE AMINO TRANSFERASE 26 Units/L (15-37); BLOOD UREA NITROGEN 10 mg/dL (7-18); CARBON DIOXIDE 30.4 mmol/L (21-32); CHLORIDE 105 mmol/L (98-107); COR CA(FOR HYPOALB) 9.8 mg/dL (8.5-10.1); CREATININE 1.08 mg/dL (0.55-1.02); SODIUM 138 mmol/L (136-145); TOTAL PROTEIN 6.4 g/dL (6.4-8.2); eGFR NON BLACK RACES 51 (>60)
[2019-11-30 10:21] LABS: GIANT PLATELET PRESENT; PLATELET MORPHOLOGY COMMENT NORMAL (NORMAL)
--- NOTE | 2019-11-30 11:47 | DR.PROGNOT ---
Hospital Progress Notes - Progress Note for Day of: Progress Note Date: 11/30/19 - Chief Complaint Chief Complaint: doing fairly well , s/p excisional debridement Lt leg wound . dressing was changed and wound was repacked . looks fairly healthy , no necrosis or significant cellulitis .. - Past Medical Family Social History Past Med/Fam/Surg Hx: No changes since H&P Allergies: Allergies No Known Drug Allergies Allergy (Verified 11/14/19 16:56) - Review Of Systems ROS: No change since H&P - Vital Signs Vital Signs: Temperature 97.9 F Pulse Rate [Right Brachial] 78 Pulse Rate 75 Respiratory Rate 18 Blood Pressure [Left Arm] 121/58 Blood Pressure [Right Arm] 91/54 Blood Pressure 130/78 O2 Sat by Pulse Oximetry 91 - Physical Exam Oriented: Normal Eyes: Normal Ear: Normal Nose: Normal Throat: Normal Respiratory: Normal Cardiovascular: Normal : Normal GI:Auscultation: Normal GI:Palpation: Normal GI: Tenderness: Normal Skin: Tender, Wound (clean surface ,( s/p debridement ) 18x8 cm , no necrosis or active infection .) Musculoskeletal: Leg, Back:Lumbar, Swelling Psychiatric: Normal Mood Description: Calm Affect: Normal Speech Pattern: Clear, Appropriate - Laboratory and Diagnostics Result Diagrams: 11/30/19 09:20 11/30/19 09:20 Labs: 11/29/19 15:32 Leg - Left Gram Stain - Final 11/29/19 15:32 Leg - Left Wound Culture - Preliminary 11/28/19 21:08 Leg - Left Gram Stain - Final 11/28/19 21:08 Leg - Left Wound Culture - Final Enterococcus Faecalis Laboratory WBC 7.7 X10^3/uL (3.6-10.0) 11/30/19 09:20 RBC 4.19 X10^6/uL (3.5-5.4) 11/30/19 09:20 Hgb 12.6 g/dL (12.0-16.0) 11/30/19 09:20 Hct 38.4 % (36.0-47.0) 11/30/19 09:20 MCV 91.6 fL (80.0-100.0) 11/30/19 09:20 MCH 30.0 pg (27.0-34.0) 11/30/19 09:20 MCHC 32.7 g/dL (33.0-35.0) L 11/30/19 09:20 RDW 13.5 % (11.6-16.5) 11/30/19 09:20 Plt Count 109 X10^3/uL (150.0-450.0) L 11/30/19 09:20 Plt Count Comment Decreased (ADEQUATE) A 11/30/19 09:20 MPV 11.3 fL (7.4-11.0) H 11/30/19 09:20 Neut % (Auto) 66.8 % (42.0-75.0) 11/30/19 09:20 Lymph % (Auto) 17.6 % (21.0-51.0) L 11/30/19 09:20 [place] % (Auto) 11.0 % (0.0-13.0) 11/30/19 09:20 Eos % (Auto) 3.6 % (0.9-2.9) H 11/30/19 09:20 Baso % (Auto) 1.0 % (0.2-1.0) 11/30/19 09:20 Neut # (Auto) 5.1 x10^3/uL (2.2-4.8) H 11/30/19 09:20 Lymph # (Auto) 1.4 X10^3/uL (1.3-2.9) 11/30/19 09:20 [place] # (Auto) 0.8 x10^3/uL (0.3-0.8) 11/30/19 09:20 Eos # (Auto) 0.3 x10^3/uL (0.0-0.2) H 11/30/19 09:20 Baso # (Auto) 0.1 X10^3/uL (0.0-0.1) 11/30/19 09:20 Absolute Nucleated RBC 0.2 /100WBC 11/30/19 09:20 Plt Clumps, EDTA Rare 11/30/19 09:20 Giant Platelets Present 11/30/19 09:20 Plt Morphology Comment Normal (NORMAL) 11/30/19 09:20 RBC Morphology Normal (NORMAL) 11/30/19 09:20 Sodium 138 mmol/L (136-145) 11/30/19 09:20 Corrected Sodium TNP 11/30/19 09:20 Potassium 4.5 mmol/L (3.5-5.1) 11/30/19 09:20 Chloride 105 mmol/L (98-107) 11/30/19 09:20 Carbon Dioxide 30.4 mmol/L (21-32) 11/30/19 09:20 BUN 10 mg/dL (7-18) 11/30/19 09:20 Creatinine 1.08 mg/dL (0.55-1.02) H 11/30/19 09:20 Est GFR (MDRD) Af Amer > 60 (>60) 11/30/19 09:20 Est GFR (MDRD) Non-Af 51 (>60) L 11/30/19 09:20 Glucose 90 mg/dL (65-99) 11/30/19 09:20 Calcium 9.0 mg/dL (8.5-10.1) 11/30/19 09:20 Corrected Calcium 9.8 mg/dL (8.5-10.1) 11/30/19 09:20 Total Bilirubin 0.50 mg/dL (0.2-1.0) 11/30/19 09:20 AST 26 Units/L (15-37) 11/30/19 09:20 ALT 19 Units/L (12-78) 11/30/19 09:20 Alkaline Phosphatase 84 Units/L (46-116) 11/30/19 09:20 Total Protein 6.4 g/dL (6.4-8.2) 11/30/19 09:20 Albumin 3.0 g/dL (3.4-5.0) L 11/30/19 09:20 Globulin 3.4 g/dL (2.5-4.5) 11/30/19 09:20 Albumin/Globulin Ratio 0.9 Ratio (1.1-2.1) L 11/30/19 09:20 Tissue Pathology To follow 11/29/19 15:29 - Assessment and Plan 1: infected wound Lt lower extr 18x8 cm , s/p debridement . same local care , repeated packing . IV ATB . DVT prophylaxis and same medical care .. - Problem Patient Problems: Patient Problems Open wound (Acute) T14.8XXA Chronic pain (Acute) G89.29
[2019-11-30] MEDS: NS 1000 ML 1,000 ML IV SCH (14:15)
[2019-11-30] MEDS: VANCOMYCIN HCL 1 G in D5W 250 ML IV 250 ML IV SCH (19:56)
[2019-11-30] MEDS: PriLOSEC PO SCH (19:59)
[2019-12-01] MEDS: FLEXERIL TAB 10 MG PO SCH ×3 (05:08→22:33)
[2019-12-01] MEDS ORDERED: DIPRIVAN VIAL ONE (08:29)
[2019-12-01] MEDS ORDERED: VERSED ONE ×2 (08:29→12:50)
[2019-12-01] MEDS ORDERED: POLYMYXIN B SULFATE ONE (11:28)
[2019-12-01] MEDS ORDERED: XYLOCAINE 1 % (PLAIN) ONE (11:28)
--- NOTE | 2019-12-01 11:42 | PCM.PROG ---
Progress Note - Progress Note for Day of Date of Exam: 12/01/19 - Subjective Subjective: 84yo WF admitted due to open wound with cellulitis to [facility]. Surgical debridement performed 11/29/19. Patient is to get a port placed today. Patient has refused PT. Patient is lying in bed with no complaints.Labs reviewed with no acute changes. - Past Medical Family Social History Past Med/Fam/Surg Hx: No changes since H&P Allergies: Allergies No Known Drug Allergies Allergy (Verified 11/14/19 16:56) - Review of Systems ROS: No change since H&P - Vital Signs and I&O's Vital Signs: Temperature 97.8 F Pulse Rate [Right Brachial] 90 Pulse Rate 75 Respiratory Rate 21 Blood Pressure [Left Arm] 121/58 Blood Pressure [Right Arm] 114/64 Blood Pressure 130/78 O2 Sat by Pulse Oximetry 92 Intake and Output: Intake & Output 11/28/19 11/29/19 11/30/19 12/01/19 23:59 23:59 23:59 23:59 Intake Total 200 / 200 2340 / 2340 1856 / 1856 520 / 520 Output Total 995 / 995 Balance 200 / 200 1345 / 1345 1856 / 1856 520 / 520 - Physical Exam Oriented: Normal Eyes: Normal Ear: Normal Nose: Normal Throat: Normal Respiratory: Normal Cardiovascular: Normal : Normal Auscultation: Bowel Sounds: Normal Tenderness: Normal Skin: Tender, Wound (clean surface ,( s/p debridement ) 18x8 cm , no necrosis or active infection .) Musculoskeletal: Leg, Back:Lumbar, Swelling Psychiatric: Normal Mood Description: Calm Affect: Normal Speech Pattern: Clear, Appropriate - Laboratory and Diagnostics Result Diagrams: 11/30/19 09:20 11/30/19 09:20 Labs: 11/29/19 15:32 Leg - Left Gram Stain - Final 11/29/19 15:32 Leg - Left Wound Culture - Preliminary 11/28/19 21:08 Leg - Left Gram Stain - Final 11/28/19 21:08 Leg - Left Wound Culture - Final Enterococcus Faecalis Laboratory WBC 7.7 X10^3/uL (3.6-10.0) 11/30/19 09:20 RBC 4.19 X10^6/uL (3.5-5.4) 11/30/19 09:20 Hgb 12.6 g/dL (12.0-16.0) 11/30/19 09:20 Hct 38.4 % (36.0-47.0) 11/30/19 09:20 MCV 91.6 fL (80.0-100.0) 11/30/19 09:20 MCH 30.0 pg (27.0-34.0) 11/30/19 09:20 MCHC 32.7 g/dL (33.0-35.0) L 11/30/19 09:20 RDW 13.5 % (11.6-16.5) 11/30/19 09:20 Plt Count 109 X10^3/uL (150.0-450.0) L 11/30/19 09:20 Plt Count Comment Decreased (ADEQUATE) A 11/30/19:20 MPV 11.3 fL (7.4-11.0) H 11/30/19 09:20 Neut % (Auto) 66.8 % (42.0-75.0) 11/30/19 09:20 Lymph % (Auto) 17.6 % (21.0-51.0) L 11/30/19 09:20 [place] % (Auto) 11.0 % (0.0-13.0) 11/30/19 09:20 Eos % (Auto) 3.6 % (0.9-2.9) H 11/30/19 09:20 Baso % (Auto) 1.0 % (0.2-1.0) 11/30/19 09:20 Neut # (Auto) 5.1 x10^3/uL (2.2-4.8) H 11/30/19 09:20 Lymph # (Auto) 1.4 X10^3/uL (1.3-2.9) 11/30/19 09:20 [place] # (Auto) 0.8 x10^3/uL (0.3-0.8) 11/30/19 09:20 Eos # (Auto) 0.3 x10^3/uL (0.0-0.2) H 11/30/19 09:20 Baso # (Auto) 0.1 X10^3/uL (0.0-0.1) 11/30/19 09:20 Absolute Nucleated RBC 0.2 /100WBC 11/30/19 09:20 Plt Clumps, EDTA Rare 11/30/19 09:20 Giant Platelets Present 11/30/19 09:20 Plt Morphology Comment Normal (NORMAL) 11/30/19 09:20 RBC Morphology Normal (NORMAL) 11/30/19 09:20 Sodium 138 mmol/L (136-145) 11/30/19 09:20 Corrected Sodium TNP 11/30/19 09:20 Potassium 4.5 mmol/L (3.5-5.1) 11/30/19 09:20 Chloride 105 mmol/L (98-107) 11/30/19 09:20 Carbon Dioxide 30.4 mmol/L (21-32) 11/30/19 09:20 BUN 10 mg/dL (7-18) 11/30/19 09:20 Creatinine 1.08 mg/dL (0.55-1.02) H 11/30/19 09:20 Est GFR (MDRD) Af Amer > 60 (>60) 11/30/19 09:20 Est GFR (MDRD) Non-Af 51 (>60) L 11/30/19 09:20 Glucose 90 mg/dL (65-99) 11/30/19 09:20 Calcium 9.0 mg/dL (8.5-10.1) 11/30/19 09:20 Corrected Calcium 9.8 mg/dL (8.5-10.1) 11/30/19 09:20 Total Bilirubin 0.50 mg/dL (0.2-1.0) 11/30/19 09:20 AST 26 Units/L (15-37) 11/30/19 09:20 ALT 19 Units/L (12-78) 11/30/19 09:20 Alkaline Phosphatase 84 Units/L (46-116) 11/30/19 09:20 Total Protein 6.4 g/dL (6.4-8.2) 11/30/19 09:20 Albumin 3.0 g/dL (3.4-5.0) L 11/30/19 09:20 Globulin 3.4 g/dL (2.5-4.5) 11/30/19 09:20 Albumin/Globulin Ratio 0.9 Ratio (1.1-2.1) L 11/30/19 09:20 Tissue Pathology To follow 11/29/19 15:29 - Plan (1) Wound cellulitis Status: Acute Plan: IV vanco, Surgical consult, Labs (2) Open wound Status: Acute Plan: Surgical consult, Vanco (3) Chronic pain Status: Acute Qualifiers: Chronic pain type: chronic pain syndrome Qualified Code(s): G89.4 - Chronic pain syndrome Plan: HOME MEDS (4) HTN (hypertension) Status: Chronic Plan: Monitor BP
[2019-12-01] MEDS ORDERED: FENTANYL INJ 100 mcg ONE (12:39)
[2019-12-01] MEDS ORDERED: NS 1000 ML 1,000 ML ONE (12:56)
[2019-12-01] MEDS: NORCO 10/325 TAB PO SCH ×2 (14:16→15:10)
[2019-12-01] MEDS: INDERAL TAB 10 MG PO SCH ×2 (14:37→20:19)
[2019-12-01] MEDS: LOVENOX INJ 40 MG SYR SC SCH (14:38)
[2019-12-01] MEDS: BUSPAR PO SCH ×2 (14:38→20:22)
[2019-12-01] MEDS: NS 1000 ML 1,000 ML IV SCH (14:38)
[2019-12-01] MEDS: ALDACTONE TAB 25 MG PO SCH (14:42)
[2019-12-01] MEDS: ATIVAN TAB 0.5 MG PO SCH (14:42)
[2019-12-01] MEDS: CYMBALTA PO SCH (14:42)
[2019-12-01] MEDS: MICRO K EXTEN CAP 10 MEQ PO SCH (14:43)
--- NOTE | 2019-12-01 16:33 | RAD ---
HISTORYS/P PORT PLACEMENTSTUDYCHEST, 1 VIEWCOMPARISON11/14/2019FINDINGSThe trachea is midline. The cardiac silhouette is stable. Similar surgiical clips overlying the left axilla. Left chest port placement with tip overlying the cavoatrial junction. Similar left basilar airspace opacities and effusion. The bony thorax is unremarkable.IMPRESSIONLeft chest port well positioned with tip overlying the cavoatrial junction.Electronically signed by: BRIANNA WEN (Dec 01, 2019 16:32:39)
[2019-12-01] MEDS ORDERED: PHARMACY COMMENT IV NR (17:00)
[2019-12-01 19:25] LABS: CREATININE 1.11 mg/dL (0.55-1.02); VANCOMYCIN,TROUGH 10.4 ug/mL (15-20)
[2019-12-01] MEDS: PriLOSEC PO SCH (20:18)
[2019-12-01] MEDS: VANCOMYCIN HCL 1 G in D5W 250 ML IV 250 ML IV SCH (20:46)
[2019-12-01] MEDS: NORCO 10/325 TAB PO PRN (22:33)
[2019-12-02] MEDS: NORCO 10/325 TAB PO PRN (04:30)
[2019-12-02] MEDS: FLEXERIL TAB 10 MG PO SCH ×2 (06:00→14:28)
[2019-12-02 06:23] LABS: BASOPHILS % (AUTO) 0.9 % (0.2-1.0); EOSINOPHILS # (AUTO) 0.2 x10^3/uL (0.0-0.2); EOSINOPHILS % (AUTO) 3.7 % (0.9-2.9); HEMOGLOBIN 11.2 g/dL (12.0-16.0); LYMPHOCYTES # (AUTO) 0.6 X10^3/uL (1.3-2.9); LYMPHOCYTES % (AUTO) 14.1 % (21.0-51.0); MEAN CORPUSCULAR VOLUME 91.1 fL (80.0-100.0); MEAN PLATELET VOLUME 11.9 fL (7.4-11.0); MONOCYTES # (AUTO) 0.5 x10^3/uL (0.3-0.8); MONOCYTES % (AUTO) 12.6 % (0.0-13.0); NEUTROPHILS % (AUTO) 68.7 % (42.0-75.0); PLATELET COUNT 97 X10^3/uL (150.0-450.0); RED BLOOD COUNT 3.73 X10^6/uL (3.5-5.4); RED CELL DISTRIBUTION WIDTH 13.5 % (11.6-16.5); WHITE BLOOD COUNT 4.3 X10^3/uL (3.6-10.0)
[2019-12-02 06:36] LABS: ALANINE AMINOTRANSFERASE 15 Units/L (12-78); ALBUMIN 2.6 g/dL (3.4-5.0); ALKALINE PHOSPHATASE 72 Units/L (46-116); ASPARTATE AMINO TRANSFERASE 22 Units/L (15-37); BLOOD UREA NITROGEN 9 mg/dL (7-18); CALCIUM 8.6 mg/dL (8.5-10.1); CARBON DIOXIDE 30.6 mmol/L (21-32); CHLORIDE 104 mmol/L (98-107); COR CA(FOR HYPOALB) 9.7 mg/dL (8.5-10.1); CREATININE 0.99 mg/dL (0.55-1.02); SODIUM 136 mmol/L (136-145); TOTAL PROTEIN 5.4 g/dL (6.4-8.2); eGFR NON BLACK RACES 57 (>60)
[2019-12-02] MEDS: NORCO 10/325 TAB PO SCH (07:17)
[2019-12-02] MEDS: INDERAL TAB 10 MG PO SCH (09:25)
[2019-12-02] MEDS: LOVENOX INJ 40 MG SYR SC SCH (09:25)
[2019-12-02] MEDS: CYMBALTA PO SCH (09:26)
[2019-12-02] MEDS: LASIX PO SCH (09:26)
[2019-12-02] MEDS: ATIVAN TAB 0.5 MG PO SCH (09:26)
[2019-12-02] MEDS: ALDACTONE TAB 25 MG PO SCH (09:26)
[2019-12-02] MEDS: MICRO K EXTEN CAP 10 MEQ PO SCH (09:27)
[2019-12-02] MEDS: BUSPAR PO SCH (09:27)
--- NOTE | 2019-12-02 10:11 | DR.PROGNOT ---
Hospital Progress Notes - Progress Note for Day of: Progress Note Date: 12/02/19 - Chief Complaint Chief Complaint: doing fairly well , s/p port placement and excisional debridement Lt leg wound .dressing was changed and wound was repacked . looks fairly healthy , no necrosis or significant cellulitis .. - Past Medical Family Social History Past Med/Fam/Surg Hx: No changes since H&P Allergies: Allergies No Known Drug Allergies Allergy (Verified 11/14/19 16:56) - Review Of Systems ROS: No change since H&P - Vital Signs Vital Signs: Temperature 98.1 F Pulse Rate [Right Brachial] 80 Pulse Rate 75 Respiratory Rate 20 Blood Pressure [Left Arm] 121/58 Blood Pressure [Right Arm] 108/60 Blood Pressure 130/78 O2 Sat by Pulse Oximetry 94 - Physical Exam Oriented: Normal Eyes: Normal Ear: Normal Nose: Normal Throat: Normal Respiratory: Normal Cardiovascular: Normal : Normal GI:Auscultation: Normal GI:Palpation: Normal GI: Tenderness: Normal Skin: Tender, Wound (clean surface ,( s/p debridement ) 18x8 cm , no necrosis or active infection .) Musculoskeletal: Leg, Back:Lumbar, Swelling Psychiatric: Normal Mood Description: Calm Affect: Normal Speech Pattern: Clear - Laboratory and Diagnostics Result Diagrams: 12/02/19 05:37 12/02/19 05:37 Labs: 11/29/19 15:32 Leg - Left Gram Stain - Final 11/29/19 15:32 Leg - Left Wound Culture - Final Enterococcus Faecalis 11/28/19 21:08 Leg - Left Gram Stain - Final 11/28/19 21:08 Leg - Left Wound Culture - Final Enterococcus Faecalis Laboratory WBC 4.3 X10^3/uL (3.6-10.0) 12/02/19 05:37 RBC 3.73 X10^6/uL (3.5-5.4) 12/02/19 05:37 Hgb 11.2 g/dL (12.0-16.0) L 12/02/19 05:37 Hct 34.0 % (36.0-47.0) L 12/02/19 05:37 MCV 91.1 fL (80.0-100.0) 12/02/19 05:37 MCH 30.0 pg (27.0-34.0) 12/02/19 05:37 MCHC 33.0 g/dL (33.0-35.0) 12/02/19 05:37 RDW 13.5 % (11.6-16.5) 12/02/19 05:37 Plt Count 97 X10^3/uL (150.0-450.0) L 12/02/19 05:37 Plt Count Comment Decreased (ADEQUATE) A 11/30/19 09:20 MPV 11.9 fL (7.4-11.0) H 12/02/19 05:37 Neut % (Auto) 68.7 % (42.0-75.0) 12/02/19 05:37 Lymph % (Auto) 14.1 % (21.0-51.0) L 12/02/19 05:37 [place] % (Auto) 12.6 % (0.0-13.0) 12/02/19 05:37 Eos % (Auto) 3.7 % (0.9-2.9) H 12/02/19 05:37 Baso % (Auto) 0.9 % (0.2-1.0) 12/02/19 05:37 Neut # (Auto) 3.0 x10^3/uL (2.2-4.8) 12/02/19 05:37 Lymph # (Auto) 0.6 X10^3/uL (1.3-2.9) L 12/02/19 05:37 [place] # (Auto) 0.5 x10^3/uL (0.3-0.8) 12/02/19 05:37 Eos # (Auto) 0.2 x10^3/uL (0.0-0.2) 12/02/19 05:37 Baso # (Auto) 0.0 X10^3/uL (0.0-0.1) 12/02/19 05:37 Absolute Nucleated RBC 0.0 /100WBC 12/02/19 05:37 Plt Clumps, EDTA Rare 11/30/19 09:20 Giant Platelets Present 11/30/19 09:20 Plt Morphology Comment Normal (NORMAL) 11/30/19 09:20 RBC Morphology Normal (NORMAL) 11/30/19 09:20 Sodium 136 mmol/L (136-145) 12/02/19 05:37 Corrected Sodium TNP 12/02/19 05:37 Potassium 3.9 mmol/L (3.5-5.1) 12/02/19 05:37 Chloride 104 mmol/L (98-107) 12/02/19 05:37 Carbon Dioxide 30.6 mmol/L (21-32) 12/02/19 05:37 BUN 9 mg/dL (7-18) 12/02/19 05:37 Creatinine 0.99 mg/dL (0.55-1.02) 12/02/19 05:37 Est GFR (MDRD) Af Amer > 60 (>60) 12/02/19 05:37 Est GFR (MDRD) Non-Af 57 (>60) L 12/02/19 05:37 Glucose 86 mg/dL (65-99) 12/02/19 05:37 Calcium 8.6 mg/dL (8.5-10.1) 12/02/19 05:37 Corrected Calcium 9.7 mg/dL (8.5-10.1) 12/02/19 05:37 Total Bilirubin 0.40 mg/dL (0.2-1.0) 12/02/19 05:37 AST 22 Units/L (15-37) 12/02/19 05:37 ALT 15 Units/L (12-78) 12/02/19 05:37 Alkaline Phosphatase 72 Units/L (46-116) 12/02/19 05:37 Total Protein 5.4 g/dL (6.4-8.2) L 12/02/19 05:37 Albumin 2.6 g/dL (3.4-5.0) L 12/02/19 05:37 Globulin 2.8 g/dL (2.5-4.5) 12/02/19 05:37 Albumin/Globulin Ratio 0.9 Ratio (1.1-2.1) L 12/02/19 05:37 Vancomycin Trough 10.4 ug/mL (15-20) L 12/01/19 18:40 Tissue Pathology To follow 11/29/19 15:29 - Assessment and Plan 1: infected wound Lt lower extr 18x8 cm , s/p debridement .port placement . same local care , repeated packing . IV ATB . DVT prophylaxis and same medical care .. to follow in 10 days . - Problem Patient Problems: Patient Problems Open wound (Acute) T14.8XXA Chronic pain (Acute) G89.29
[2019-12-02] MEDS: NS 1000 ML 1,000 ML IV SCH (11:34)
[2019-12-02 12:11] VITALS: BP 105/53
== END 2019-12-02 14:55 | disposition home or self-care (01) | DRG 572 ==
LOC: MED/SURG 17:35
PROVIDERS: ADMIT Internal Medicine; ATTEND Internal Medicine
DX: L03.116 Cellulitis of left lower limb; G89.29 Other chronic pain; I11.0 Hypertensive heart disease with heart failure; B95.2 Enterococcus as the cause of diseases classified elsewhere; Z91.81 History of falling; I87.2 Venous insufficiency (chronic) (peripheral); I50.9 Heart failure, unspecified; S81.802A Unspecified open wound, left lower leg, initial encounter; M79.7 Fibromyalgia; E78.2 Mixed hyperlipidemia; R60.0 Localized edema; Z11.59 Encounter for screening for other viral diseases
CPT/HCPCS: 36415; 71010; 71045; 76000; 80053; 80202; 82565; 85025; 87070; 87075; 87077; 87186; 87205; 88304; 97110; 97116; 97162; 97166; 97530; 97535; 99100; A4216; A4222; J1642; J1650; J2250; J2405; J2704; J3010; J3370; J3490; J7030; J7060

== ENCOUNTER 2019-12-19 15:54 | Observation (INO) ==
[2019-12-19] MEDS ORDERED: TYLENOL 500 MG TAB EXTRA STRENGTH PO PRN (17:56)
--- NOTE | 2019-12-19 18:09 | DR.H&P ---
H&P - History & Physical for Day of: H&P Date: 12/19/19 - Chief Complaint Chief Complaint: AMS - History of Present Illness History of Present Illness: The patient is a 84-year-old white female who presents to the [place] internal medicine office with her daughter. Daughter states that she is having increasing confusion. States that she was walking the hallway assisted-living facility with findings. Patient's states she wanted a man in the bed with her. Patient's also was noted [place] with stamps on them with "pay to [employer]" noted on them. Patient does not have recall of visitors or activities from yesterday. Patient is rambling inconsistently. Daughter states she is not sleeping at night. States she is not eating as well. Symptoms were not as severe last week. Have progressed in nature despite medication reduction. Blood work and urine obtained at [facility] by visiting nurses and has a UTI. - Past Medical History Past Medical History: Anxiety, Arthritis, Depression, Dyslipidemia, GERD, Sleep Apnea Additional Medical History: Fibromyalgia, Polyneuropathy, Clavicular fracture - Past Surgical History Surgical History: Cholecystectomy, Hysterectomy, Mastectomy, Other - Family History Family Medical History: Hypertension - Social History Does patient currently use any type of tobacco product: No Have you used tobacco products in the last 12 months: No Type of Tobacco Use: None Does any household member use tobacco: No Alcohol Use: None Drug Use: None Risks, benefits, and alternatives of opioids discussed: No Prescription drug monitoring program results: PDMP reviewed and no concerns identified - Medications Home Medications: No Known Drug Allergies Allergy (Verified 11/14/19 16:56) - Review of Systems Constitutional: Weakness, Malaise Eyes: No Symptoms Reported ENT: No Symptoms Reported Respiratory: No Symptoms Reported Cardiovascular: No Symptoms Reported Gastrointestinal: No Symptoms Reported Genitourinary: No Symptoms Reported Musculoskeletal: Back Pain Skin: Wound (LLE) Neurological: Confusion - Physical Exam Vital Signs: Blood Pressure [Left Arm] 121/58 Blood Pressure [Right Arm] 105/53 Oriented: Person Eyes: Normal Ear: Normal Nose: Normal Throat: Normal Respiratory: Clear Throughout Cardiovascular: Normal : Normal Auscultation: Bowel Sounds: Normal Palpation: Normal Tenderness: Normal Skin: Wound (LLE) Musculoskeletal: Back:Lumbar Psychiatric: Depression Speech Pattern: Unclear - Assessment/Plan (1) Altered mental status Status: Acute Plan: CT Head, Labs, Urine, Rocephin (2) Dementia with behavioral disturbance Status: Acute Plan: Start Aricept, Risperdal. Consider Behavior placement. (3) UTI (urinary tract infection) Status: Acute Plan: Rocephin IV - Review H&P Reviewed: Yes Patient was examined?: Yes - Allergies Allergies/Adverse Reactions: Allergies Allergy/AdvReac Type Severity Reaction Status Date / Time No Known Drug Allergies Allergy Verified 11/14/19 16:56
[2019-12-19 19:38] LABS: BASOPHILS % (AUTO) 0.6 % (0.2-1.0); EOSINOPHILS # (AUTO) 0.1 x10^3/uL (0.0-0.2); EOSINOPHILS % (AUTO) 1.6 % (0.9-2.9); HEMATOCRIT 33.2 % (36.0-47.0); LYMPHOCYTES # (AUTO) 0.8 X10^3/uL (1.3-2.9); LYMPHOCYTES % (AUTO) 17.3 % (21.0-51.0); MEAN CORPUSCULAR HEMOGLOBIN 29.7 pg (27.0-34.0); MEAN PLATELET VOLUME 10.9 fL (7.4-11.0); MONOCYTES # (AUTO) 0.9 x10^3/uL (0.3-0.8); MONOCYTES % (AUTO) 19.9 % (0.0-13.0); NEUTROPHILS # (AUTO) 2.7 x10^3/uL (2.2-4.8); NEUTROPHILS % (AUTO) 60.6 % (42.0-75.0); PLATELET COUNT 75 X10^3/uL (150.0-450.0); RED BLOOD COUNT 3.69 X10^6/uL (3.5-5.4); RED CELL DISTRIBUTION WIDTH 13.7 % (11.6-16.5); WHITE BLOOD COUNT 4.5 X10^3/uL (3.6-10.0)
[2019-12-19 19:42] LABS: ALANINE AMINOTRANSFERASE 17 Units/L (12-78); ALBUMIN 3.4 g/dL (3.4-5.0); ALKALINE PHOSPHATASE 74 Units/L (46-116); ASPARTATE AMINO TRANSFERASE 26 Units/L (15-37); BLOOD UREA NITROGEN 8 mg/dL (7-18); CALCIUM 9.5 mg/dL (8.5-10.1); CARBON DIOXIDE 25.9 mmol/L (21-32); CHLORIDE 100 mmol/L (98-107); CREATININE 1.07 mg/dL (0.55-1.02); SODIUM 138 mmol/L (136-145); TOTAL PROTEIN 6.9 g/dL (6.4-8.2); eGFR NON BLACK RACES 52 (>60)
[2019-12-19] MEDS ORDERED: ROCEPHIN VIAL 1 GRAM ONE (20:04)
[2019-12-19] MEDS ORDERED: NS 100 ML IV + SPIKE MINIBAG* 100 ML IV ONE (20:07)
[2019-12-19] MEDS: NS 1000 ML 1,000 ML IV SCH (20:19)
[2019-12-19] MEDS: ROCEPHIN VIAL 1 GRAM 1 G in NS 100 ML IV + SPIKE MINIBAG* 100 ML IV SCH ×2 (20:20)
[2019-12-19] MEDS ORDERED: K-DUR TAB 20 MEQ PO PRN (20:40)
[2019-12-19] MEDS ORDERED: KLOR-CON PO PRN (20:40)
[2019-12-19] MEDS ORDERED: POTASSIUM CHL 60 MEQ/NS 0.45% 500 ML IV PRN (20:40)
[2019-12-19] MEDS ORDERED: MICRO K EXTEN CAP 10 MEQ PO PRN (20:40)
[2019-12-19] MEDS ORDERED: POTASSIUM CHL 40 MEQ/NS 0.45% 500 ML IV PRN (20:40)
[2019-12-19] MEDS ORDERED: K-RIDER 10 MEQ/NS 100 ML 10 MEQ/100 ML BAG IV PRN (20:40)
[2019-12-19] MEDS ORDERED: POTASSIUM CHLORIDE LIQ 20 MEQ UDC PO PRN (20:40)
[2019-12-19] MEDS: ARICEPT TAB 5 MG PO SCH ×3 (20:48→22:33)
[2019-12-19] MEDS: MAGNESIUM SULFATE 1 GRAM/100 mL PREMIX 1 GM/100 ML BAG IV PRN (23:40)
[2019-12-20] MEDS: MAGNESIUM SULFATE 1 GRAM/100 mL PREMIX 1 GM/100 ML BAG IV PRN ×3 (00:41→03:05)
[2019-12-20 05:24] LABS: BILIRUBIN,URINE NEGATIVE (NEGATIVE); BLOOD/HEMOGLOBIN,URINE NEGATIVE (NEGATIVE); GLUCOSE, URINE NEGATIVE (NEGATIVE); KETONES,URINE 3+ (NEGATIVE); LEUKOCYTE ESTERASE ,URINE NEGATIVE (NEGATIVE); NITRITES,URINE NEGATIVE (NEGATIVE); PROTEIN,URINE NEGATIVE (NEGATIVE); UROBILINOGEN,URINE NORMAL (NORMAL)
[2019-12-20 05:57] LABS: APPEARANCE,URINE CLEAR (CLEAR); COLOR,URINE YELLOW (YELLOW)
[2019-12-20 06:24] LABS: BASOPHILS % (AUTO) 0.6 % (0.2-1.0); EOSINOPHILS # (AUTO) 0.1 x10^3/uL (0.0-0.2); HEMATOCRIT 34.2 % (36.0-47.0); HEMOGLOBIN 11.5 g/dL (12.0-16.0); LYMPHOCYTES # (AUTO) 0.7 X10^3/uL (1.3-2.9); LYMPHOCYTES % (AUTO) 17.5 % (21.0-51.0); MEAN CORPUSCULAR HEMOGLOBIN 29.7 pg (27.0-34.0); MEAN CORPUSCULAR HGB CONC 33.5 g/dL (33.0-35.0); MEAN CORPUSCULAR VOLUME 88.5 fL (80.0-100.0); MEAN PLATELET VOLUME 9.6 fL (7.4-11.0); MONOCYTES # (AUTO) 0.7 x10^3/uL (0.3-0.8); NEUTROPHILS # (AUTO) 2.3 x10^3/uL (2.2-4.8); NEUTROPHILS % (AUTO) 59.9 % (42.0-75.0); PLATELET COUNT 70 X10^3/uL (150.0-450.0); RED BLOOD COUNT 3.86 X10^6/uL (3.5-5.4); RED CELL DISTRIBUTION WIDTH 13.7 % (11.6-16.5); WHITE BLOOD COUNT 3.8 X10^3/uL (3.6-10.0)
[2019-12-20 06:35] LABS: ALANINE AMINOTRANSFERASE 24 Units/L (12-78); ALBUMIN 3.2 g/dL (3.4-5.0); ALKALINE PHOSPHATASE 71 Units/L (46-116); ASPARTATE AMINO TRANSFERASE 29 Units/L (15-37); BLOOD UREA NITROGEN 6 mg/dL (7-18); CALCIUM 9.1 mg/dL (8.5-10.1); CARBON DIOXIDE 27.4 mmol/L (21-32); CHLORIDE 102 mmol/L (98-107); COR CA(FOR HYPOALB) 9.7 mg/dL (8.5-10.1); CREATININE 0.96 mg/dL (0.55-1.02); MAGNESIUM 2.3 mg/dL (1.7-2.9); SODIUM 138 mmol/L (136-145); TOTAL PROTEIN 6.8 g/dL (6.4-8.2); eGFR NON BLACK RACES 59 (>60)
[2019-12-20 07:15] LABS: BAND NEUTROPHILS % 4 % (0-10); PLATELET MORPHOLOGY COMMENT NORMAL (NORMAL)
[2019-12-20] MEDS: NS 1000 ML 1,000 ML IV SCH ×3 (07:22→18:28)
[2019-12-20] MEDS ORDERED: LEXAPRO ONE (09:04)
[2019-12-20] MEDS: LEXAPRO PO SCH (09:09)
[2019-12-20] MEDS: ROCEPHIN VIAL 1 GRAM 1 G in NS 100 ML IV + SPIKE MINIBAG* 100 ML IV SCH (09:10)
--- NOTE | 2019-12-20 10:17 | CT ---
HISTORYAMS, CONFUSIONSTUDYBRAIN W/O CONCOMPARISONNone availableTECHNIQUEMultiple helical images of the brain from the vertex to the occiput were obtained. Coronal and sagittal reformats were performed. Dose reduction techniques including Automated Exposure Control (AEC) and adjustment of mA and kV were utilized.FINDINGSThere is diffuse cerebral cortical atrophy with bilateral periventricular and deep white matter hypoattenuation, findings are nonspecific; however, most likely represent sequela of chronic microvascular disease.[No acute intraparenchymal hemorrhage or mass can be identified.] [No extra-axial fluid collections are seen.] [No alteration in the attenuation of the brain parenchyma can be identified to suggest acute or subacute ischemic change.] [The ventricular system is symmetric and nondilated.] [The extracranial structures are grossly unremarkable.]IMPRESSIONModerate diffuse cerebral cortical atrophy with bilateral periventricular and deep white matter hypoattenuation, findings are nonspecific; however, most likely represent sequela of chronic microvascular disease.No acute intracranial hemorrhage.Electronically signed by: QI PATEL (Dec 20, 2019 10:15:38)
[2019-12-20 12:34] VITALS: BMI 34.5
--- NOTE | 2019-12-20 18:00 | PCM.PROG ---
Progress Note - Progress Note for Day of Date of Exam: 12/20/19 - Subjective Subjective: PT IS 84 WF DIRECT ADMIT FROM DR HERMAN OFFICE IN [place] WITH CO INCREASED AMS, POOR APPETITE, UTI AND LLE WOUND. PT HAS HX OF INCREASED FALLS WITH LLE WOUND WHICH SHE HAD BEEN ON PO ANTIBIOTICS AND RECEIVING WOUND CARE PRIOR TO THIS ADMISSION. LLE WOUND SIGNIFICANTLY IMPROVED SINCE LAST HOSPITALIZATION >3 WEEKS AGO. PT DENIES ANY FEVER, CCC. PT HAD UTI, UC AND BLOOD CULTURES OBTAINED ON ADMISSION ARE PENDING. PT HAD CT OF HEAD WITHOUT ACUTE CV FINDINGS. PT IS ON SUPERVISOR PRE WAVE CHRONIC PAIN MEDICATION WITH OTHER SEDATING MUSCLE RELAXERS. PT'S MEDICATION REGIMEN HAS BEEN ADJUSTED PRIOR TO ADMISSION WITHOUT IMPROVEMENT IN CONFUSION/AMS. PT IS CURRENTLY ON IV ROCEPHIN, IV HYDRATION. - Past Medical Family Social History Past Med/Fam/Surg Hx: No changes since H&P Allergies: Allergies No Known Drug Allergies Allergy (Verified 11/14/19 16:56) - Review of Systems ROS: No change since H&P - Vital Signs and I&O's Vital Signs: Temperature 98.0 F Pulse Rate [Right Brachial] 113 Respiratory Rate 20 Blood Pressure [Left Arm] 121/58 Blood Pressure [Right Arm] 124/58 O2 Sat by Pulse Oximetry 98 Intake and Output: Intake & Output 12/18/19 12/19/19 12/20/19 12/21/19 11:59 11:59 11:59 11:59 Intake Total 1180 / 1180 520 / 520 Output Total 550 / 550 300 / 300 Balance 630 / 630 220 / 220 - Physical Exam Oriented: Person. negative: Place Eyes: Normal Ear: Normal Nose: Normal Throat: Normal Respiratory: Diminished Cardiovascular: Normal : Normal Auscultation: Bowel Sounds: Normal Tenderness: Normal Skin: Decreased Turgur, Wound (LLE) Musculoskeletal: Back:Thoracic, Back:Lumbar Psychiatric: Depression Speech Pattern: Clear, Inappropriate - Laboratory and Diagnostics Result Diagrams: 12/20/19 06:01 12/20/19 06:01 Labs: Laboratory WBC 3.8 X10^3/uL (3.6-10.0) 12/20/19 06:01 RBC 3.86 X10^6/uL (3.5-5.4) 12/20/19 06:01 Hgb 11.5 g/dL (12.0-16.0) L 12/20/19 06:01 Hct 34.2 % (36.0-47.0) L 12/20/19 06:01 MCV 88.5 fL (80.0-100.0) 12/20/19 06:01 MCH 29.7 pg (27.0-34.0) 12/20/19 06:01 MCHC 33.5 g/dL (33.0-35.0) 12/20/19 06:01 RDW 13.7 % (11.6-16.5) 12/20/19 06:01 Plt Count 70 X10^3/uL (150.0-450.0) L 12/20/19 06:01 Plt Count Comment Decreased (ADEQUATE) A 12/20/19 06: MPV 9.6 fL (7.4-11.0) 12/20/19 06:01 Neut % (Auto) 59.9 % (42.0-75.0) 12/20/19 06:01 Lymph % (Auto) 17.5 % (21.0-51.0) L 12/20/19 06:01 [place] % (Auto) 19.0 % (0.0-13.0) H 12/20/19 06:01 Eos % (Auto) 3.0 % (0.9-2.9) H 12/20/19 06:01 Baso % (Auto) 0.6 % (0.2-1.0) 12/20/19 06:01 Neut # (Auto) 2.3 x10^3/uL (2.2-4.8) 12/20/19 06:01 Lymph # (Auto) 0.7 X10^3/uL (1.3-2.9) L 12/20/19 06:01 [place] # (Auto) 0.7 x10^3/uL (0.3-0.8) 12/20/19 06:01 Eos # (Auto) 0.1 x10^3/uL (0.0-0.2) 12/20/19 06:01 Baso # (Auto) 0.0 X10^3/uL (0.0-0.1) 12/20/19 06:01 Absolute Nucleated RBC 0.3 /100WBC 12/20/19 06:01 Total Counted 100 08/04/20 06:01 Neutrophils % (Manual) 62 % (39-76) 12/20/19 06:01 Band Neutrophils % 4 % (0-10) 12/20/19 06:01 Lymphocytes % (Manual) 22 % (13-43) 12/20/19 06:01 Monocytes % (Manual) 8 % (4-9) 12/20/19 06:01 Eosinophils % (Manual) 4 % (0-6) 12/20/19 06:01 Plt Morphology Comment Normal (NORMAL) 12/20/19 06:01 RBC Morphology Normal (NORMAL) 12/20/19 06:01 Sodium 138 mmol/L (136-145) 12/20/19 06:01 Corrected Sodium TNP 12/20/19 06:01 Potassium 4.0 mmol/L (3.5-5.1) 12/20/19 06:01 Chloride 102 mmol/L (98-107) 12/20/19 06:01 Carbon Dioxide 27.4 mmol/L (21-32) 12/20/19 06:01 BUN 6 mg/dL (7-18) L 12/20/19 06:01 Creatinine 0.96 mg/dL (0.55-1.02) 12/20/19 06:01 Est GFR (MDRD) Af Amer > 60 (>60) 12/20/19 06:01 Est GFR (MDRD) Non-Af 59 (>60) 12/20/19 06:01 Glucose 86 mg/dL (65-99) 12/20/19 06:01 Calcium 9.1 mg/dL (8.5-10.1) 12/20/19 06:01 Corrected Calcium 9.7 mg/dL (8.5-10.1) 12/20/19 06:01 Magnesium 2.3 mg/dL (1.7-2.9) 12/20/19 06:01 Total Bilirubin 0.60 mg/dL (0.2-1.0) 12/20/19 06:01 AST 29 Units/L (15-37) 12/20/19 06:01 ALT 24 Units/L (12-78) 12/20/19 06:01 Alkaline Phosphatase 71 Units/L (46-116) 12/20/19 06:01 Total Protein 6.8 g/dL (6.4-8.2) 12/20/19 06:01 Albumin 3.2 g/dL (3.4-5.0) L 12/20/19 06:01 Globulin 3.6 g/dL (2.5-4.5) 12/20/19 06:01 Albumin/Globulin Ratio 0.9 Ratio (1.1-2.1) L 12/20/19 06:01 Specimen Type Clean catch urine 12/20/19 05:00 Urine Color Yellow (YELLOW) 12/20/19 05:00 Urine Appearance Clear (CLEAR) 12/20/19 05:00 Urine pH 5.0 (5.0 - 8.0) 12/20/19 05:00 Ur Specific [place] 1.015 (1.000-1.030) 12/20/19 05:00 Urine Protein Negative (NEGATIVE) 12/20/19 05:00 Urine Glucose (UA) Negative (NEGATIVE) 12/20/19 05:00 Urine Ketones 3+ (NEGATIVE) 12/20/19 05:00 Urine Occult Blood Negative (NEGATIVE) 12/20/19 05:00 Urine Nitrite Negative (NEGATIVE) 12/20/19 05:00 Urine Bilirubin Negative (NEGATIVE) 12/20/19 05:00 Urine Urobilinogen Normal (NORMAL) 12/20/19 05:00 Ur Leukocyte Esterase Negative (NEGATIVE) 12/20/19 05:00 - Plan (1) Altered mental status Status: Acute Plan: CT Head, Labs, Urine, Rocephin. IV HYDRATION, VERIFY HOME MEDICATION. BLOOD AND URINE CULTURES ON ADMISSION (2) Dementia with behavioral disturbance Status: Acute Plan: Start Aricept, Risperdal. Consider Behavior placement. (3) UTI (urinary tract infection) Status: Acute Plan: Rocephin IV (4) Chronic pain Status: Chronic Qualifiers: Chronic pain type: chronic pain syndrome Qualified Code(s): G89.4 - Chronic pain syndrome (5) HTN (hypertension) Status: Chronic (6) HX: breast cancer Status: Chronic (7) Obstructive sleep apnea treated with BiPAP Status: Chronic (8) Pulmonary HTN Status: Chronic (9) Rheumatoid arthritis Status: Chronic
[2019-12-20] MEDS: ARICEPT TAB 5 MG PO SCH (20:36)
[2019-12-20] MEDS: CHECK PATCH XX SCH (20:37)
[2019-12-21] MEDS: NS 1000 ML 1,000 ML IV SCH ×3 (02:00→19:35)
[2019-12-21 06:28] LABS: BASOPHILS % (AUTO) 0.7 % (0.2-1.0); EOSINOPHILS # (AUTO) 0.1 x10^3/uL (0.0-0.2); HEMATOCRIT 30.7 % (36.0-47.0); HEMOGLOBIN 10.4 g/dL (12.0-16.0); LYMPHOCYTES # (AUTO) 0.5 X10^3/uL (1.3-2.9); LYMPHOCYTES % (AUTO) 14.6 % (21.0-51.0); MEAN CORPUSCULAR HEMOGLOBIN 29.8 pg (27.0-34.0); MEAN CORPUSCULAR HGB CONC 33.8 g/dL (33.0-35.0); MEAN CORPUSCULAR VOLUME 88.2 fL (80.0-100.0); MEAN PLATELET VOLUME 10.1 fL (7.4-11.0); MONOCYTES # (AUTO) 0.6 x10^3/uL (0.3-0.8); MONOCYTES % (AUTO) 19.7 % (0.0-13.0); NEUTROPHILS # (AUTO) 1.9 x10^3/uL (2.2-4.8); PLATELET COUNT 77 X10^3/uL (150.0-450.0); RED BLOOD COUNT 3.48 X10^6/uL (3.5-5.4); RED CELL DISTRIBUTION WIDTH 13.5 % (11.6-16.5); WHITE BLOOD COUNT 3.1 X10^3/uL (3.6-10.0)
[2019-12-21 06:40] LABS: ALANINE AMINOTRANSFERASE 23 Units/L (12-78); ALBUMIN 2.8 g/dL (3.4-5.0); ALKALINE PHOSPHATASE 66 Units/L (46-116); ASPARTATE AMINO TRANSFERASE 22 Units/L (15-37); BLOOD UREA NITROGEN 6 mg/dL (7-18); CALCIUM 8.7 mg/dL (8.5-10.1); CARBON DIOXIDE 26.8 mmol/L (21-32); CHLORIDE 104 mmol/L (98-107); COR CA(FOR HYPOALB) 9.7 mg/dL (8.5-10.1); CREATININE 0.92 mg/dL (0.55-1.02); SODIUM 141 mmol/L (136-145); TOTAL PROTEIN 6.2 g/dL (6.4-8.2); eGFR NON BLACK RACES > 60 (>60)
[2019-12-21 07:14] LABS: PLATELET MORPHOLOGY COMMENT NORMAL (NORMAL)
[2019-12-21] MEDS ORDERED: LEXAPRO ONE (08:24)
[2019-12-21] MEDS: ROCEPHIN VIAL 1 GRAM 1 G in NS 100 ML IV + SPIKE MINIBAG* 100 ML IV SCH (08:30)
[2019-12-21] MEDS: LEXAPRO PO SCH (08:30)
--- NOTE | 2019-12-21 09:47 | RAD ---
HISTORYDOE, AMS, WEAKNESSSTUDYCHEST, 1 [id number]/2020FINDINGSThe trachea is midline. There is a left Port-A-Cath with the tip in the SVC. Surgical clips in the left axillary region. Stable mild cardiomegaly. There are bilateral trace effusion left more than right. No evidence of central pulmonary edema. No dominant infiltrates.IMPRESSIONtrace effusions left more than right, no central pulmonary edema.Electronically signed by: Lora Simental (Dec 21, 2019 09:46:31)
[2019-12-21] MEDS: CHECK PATCH XX SCH ×2 (10:29→20:59)
[2019-12-21] MEDS: ARICEPT TAB 5 MG PO SCH (20:59)
[2019-12-21] MEDS ORDERED: MAALOX or MYLANTA PO PRN (23:36)
[2019-12-21] MEDS ORDERED: MAALOX or MYLANTA ONE (23:40)
[2019-12-22] MEDS: NS 1000 ML 1,000 ML IV SCH ×2 (06:28→18:43)
[2019-12-22 06:32] LABS: ALANINE AMINOTRANSFERASE 21 Units/L (12-78); ALBUMIN 2.9 g/dL (3.4-5.0); ALKALINE PHOSPHATASE 67 Units/L (46-116); ASPARTATE AMINO TRANSFERASE 18 Units/L (15-37); BLOOD UREA NITROGEN 5 mg/dL (7-18); CALCIUM 9.1 mg/dL (8.5-10.1); CARBON DIOXIDE 27.7 mmol/L (21-32); CHLORIDE 106 mmol/L (98-107); COR NA(FOR HYPERGLY) 143 mmol/L (136-145); CREATININE 0.79 mg/dL (0.55-1.02); SODIUM 143 mmol/L (136-145); TOTAL PROTEIN 6.2 g/dL (6.4-8.2); eGFR NON BLACK RACES > 60 (>60)
[2019-12-22 06:34] LABS: BASOPHILS % (AUTO) 0.6 % (0.2-1.0); EOSINOPHILS # (AUTO) 0.1 x10^3/uL (0.0-0.2); HEMATOCRIT 31.9 % (36.0-47.0); HEMOGLOBIN 10.6 g/dL (12.0-16.0); LYMPHOCYTES # (AUTO) 0.5 X10^3/uL (1.3-2.9); MEAN CORPUSCULAR HEMOGLOBIN 29.5 pg (27.0-34.0); MEAN CORPUSCULAR HGB CONC 33.2 g/dL (33.0-35.0); MEAN PLATELET VOLUME 10.9 fL (7.4-11.0); MONOCYTES # (AUTO) 0.6 x10^3/uL (0.3-0.8); NEUTROPHILS # (AUTO) 1.3 x10^3/uL (2.2-4.8); NEUTROPHILS % (AUTO) 52.4 % (42.0-75.0); PLATELET COUNT 92 X10^3/uL (150.0-450.0); RED BLOOD COUNT 3.58 X10^6/uL (3.5-5.4); RED CELL DISTRIBUTION WIDTH 13.9 % (11.6-16.5); WHITE BLOOD COUNT 2.5 X10^3/uL (3.6-10.0)
[2019-12-22 06:54] LABS: PLATELET MORPHOLOGY COMMENT NORMAL (NORMAL)
[2019-12-22] MEDS ORDERED: LEXAPRO ONE (07:57)
[2019-12-22] MEDS ORDERED: NS 100 ML IV 100 ML IV ONE (08:05)
[2019-12-22] MEDS: ROCEPHIN VIAL 1 GRAM 1 G in NS 100 ML IV + SPIKE MINIBAG* 100 ML IV SCH (08:26)
[2019-12-22] MEDS: LEXAPRO PO SCH (08:26)
[2019-12-22] MEDS: CHECK PATCH XX SCH ×2 (08:27→20:49)
[2019-12-22] MEDS ORDERED: XANAX PO PRN (13:52)
[2019-12-22] MEDS: ATIVAN TAB 0.5 MG PO SCH (14:54)
[2019-12-22] MEDS: ARICEPT TAB 5 MG PO SCH (20:49)
[2019-12-23] MEDS: NS 1000 ML 1,000 ML IV SCH ×2 (02:56→12:55)
[2019-12-23 06:28] LABS: ALANINE AMINOTRANSFERASE 17 Units/L (12-78); ALBUMIN 2.8 g/dL (3.4-5.0); ALKALINE PHOSPHATASE 65 Units/L (46-116); ASPARTATE AMINO TRANSFERASE 20 Units/L (15-37); BLOOD UREA NITROGEN 7 mg/dL (7-18); CALCIUM 9.4 mg/dL (8.5-10.1); CARBON DIOXIDE 29.1 mmol/L (21-32); CHLORIDE 108 mmol/L (98-107); COR CA(FOR HYPOALB) 10.4 mg/dL (8.5-10.1); CREATININE 0.82 mg/dL (0.55-1.02); SODIUM 143 mmol/L (136-145); TOTAL PROTEIN 6.2 g/dL (6.4-8.2); eGFR NON BLACK RACES > 60 (>60)
[2019-12-23 06:31] LABS: BASOPHILS % (AUTO) 0.6 % (0.2-1.0); EOSINOPHILS # (AUTO) 0.2 x10^3/uL (0.0-0.2); HEMATOCRIT 34.2 % (36.0-47.0); HEMOGLOBIN 11.1 g/dL (12.0-16.0); LYMPHOCYTES # (AUTO) 0.8 X10^3/uL (1.3-2.9); LYMPHOCYTES % (AUTO) 18.4 % (21.0-51.0); MEAN CORPUSCULAR HEMOGLOBIN 29.2 pg (27.0-34.0); MEAN CORPUSCULAR HGB CONC 32.6 g/dL (33.0-35.0); MEAN CORPUSCULAR VOLUME 89.8 fL (80.0-100.0); MONOCYTES # (AUTO) 0.9 x10^3/uL (0.3-0.8); NEUTROPHILS # (AUTO) 2.3 x10^3/uL (2.2-4.8); PLATELET COUNT 105 X10^3/uL (150.0-450.0); RED BLOOD COUNT 3.81 X10^6/uL (3.5-5.4); WHITE BLOOD COUNT 4.2 X10^3/uL (3.6-10.0)
[2019-12-23 07:19] LABS: PLATELET MORPHOLOGY COMMENT NORMAL (NORMAL)
[2019-12-23] MEDS ORDERED: LEXAPRO ONE (09:01)
[2019-12-23] MEDS: ATIVAN TAB 0.5 MG PO SCH (09:29)
[2019-12-23] MEDS: CHECK PATCH XX SCH (09:29)
[2019-12-23] MEDS: LEXAPRO PO SCH (09:29)
[2019-12-23] MEDS: ROCEPHIN VIAL 1 GRAM 1 G in NS 100 ML IV + SPIKE MINIBAG* 100 ML IV SCH (09:30)
[2019-12-23] MEDS ORDERED: INVANZ INJ 1 GM VIAL 1 GM in NS 100 ML IV + SPIKE MINIBAG* 100 ML IV SCH (11:00)
--- NOTE | 2019-12-23 15:46 | PCM.PROG ---
Progress Note - Progress Note for Day of Date of Exam: 12/22/19 - Subjective Subjective: The patient is an 84-year-old white female who was admitted with altered mental status and urinary tract infection. Since admission, the patient did have a CT scan of her head showing no signs of acute CVA or any acute intracranial abnormality. We obtained blood and urine cultures on admission. She was started on IV Rocephin. The patient is very calm and is very cooperative. She has been on Risperdol as well as her Aricept. We had not resumed all of her home medications. It was time to change her Fentynl, 25 mcg patch and we did resume this. We did not resume her oral Hydrocodone. The patient reports that she has just not had as much pain as she normally would. Due to her having some confusion, I have just been trying to avoid some of the medications that could cause increased sedation as long as she is tolerating pain fine. She does not appear to be anxious or irritated this morning. However, she is still having some confusion regarding events prior to this admission and some inappropriate responses as well. It is kind of like she is oriented and answers appropriately and then she will say inappropriate things as evidence that she is having some transient dementia. - Past Medical Family Social History Past Med/Fam/Surg Hx: No changes since H&P Allergies: Allergies No Known Drug Allergies Allergy (Verified 11/14/19 16:56) - Review of Systems ROS: No change since H&P - Vital Signs and I&O's Vital Signs: Temperature 98.0 F Pulse Rate [Right Brachial] 112 Respiratory Rate 18 Blood Pressure [Left Arm] 121/58 Blood Pressure [Right Arm] 149/70 O2 Sat by Pulse Oximetry 96 Intake and Output: Intake & Output 12/21/19 12/22/19 12/23/19 12/24/19 11:59 11:59 11:59 11:59 Intake Total 3 / 2083 1200 / 1200 1560 / 1560 120 / 120 Output Total 300 / 300 Balance 1783 / 1783 1200 / 1200 1560 / 1560 120 / 120 - Physical Exam Oriented: Person. negative: Place Eyes: Normal Ear: Normal Nose: Normal Throat: Normal Respiratory: Diminished Cardiovascular: Normal : Normal Auscultation: Bowel Sounds: Normal Tenderness: Normal Skin: Decreased Turgur, Wound (LLE) Musculoskeletal: Back:Thoracic, Back:Lumbar Psychiatric: Depression Speech Pattern: Clear, Inappropriate - Laboratory and Diagnostics Result Diagrams: 12/23/19 05:48 12/23/19 05:48 Labs: 12/20/19 05:00 Urine,Clean Catch Urine Culture - Final Klebsiella Pneumoniae Escherichia Coli 12/19/19 18:50 Blood Blood Culture - Preliminary 12/19/19 18:45 Blood Blood Culture - Preliminary Laboratory WBC 4.2 X10^3/uL (3.6-10.0) 12/23/19 05:48 RBC 3.81 X10^6/uL (3.5-5.4) 12/23/19 05:48 Hgb 11.1 g/dL (12.0-16.0) L 12/23/19 05:48 Hct 34.2 % (36.0-47.0) L 12/23/19 05:48 MCV 89.8 fL (80.0-100.0) 12/23/19 05:48 MCH 29.2 pg (27.0-34.0) 12/23/19 05:48 MCHC 32.6 g/dL (33.0-35.0) L 12/23/19 05:48 RDW 14.0 % (11.6-16.5) 12/23/19 05:48 Plt Count 105 X10^3/uL (150.0-450.0) L 12/23/19 05:48 Plt Count Comment Decreased (ADEQUATE) A 12/23/19 05:48 MPV 11.0 fL (7.4-11.0) 12/23/19 05:48 Neut % (Auto) 56.0 % (42.0-75.0) 12/23/19 05:48 Lymph % (Auto) 18.4 % (21.0-51.0) L 12/23/19 05:48 [place] % (Auto) 21.0 % (0.0-13.0) H 12/23/19 05:48 Eos % (Auto) 4.0 % (0.9-2.9) H 12/23/19 05:48 Baso % (Auto) 0.6 % (0.2-1.0) 12/23/19 05:48 Neut # (Auto) 2.3 x10^3/uL (2.2-4.8) 12/23/19 05:48 Lymph # (Auto) 0.8 X10^3/uL (1.3-2.9) L 12/23/19 05:48 [place] # (Auto) 0.9 x10^3/uL (0.3-0.8) H 12/23/19 05:48 Eos # (Auto) 0.2 x10^3/uL (0.0-0.2) 12/23/19 05:48 Baso # (Auto) 0.0 X10^3/uL (0.0-0.1) 12/23/19 05:48 Absolute Nucleated RBC 0.2 /100WBC 12/23/19 05:48 Total Counted 100 12/23/19 05:48 Neutrophils % (Manual) 62 % (39-76) 12/23/19 05:48 Band Neutrophils % 4 % (0-10) 12/20/19 06:01 Lymphocytes % (Manual) 25 % (13-43) 12/23/19 05:48 Monocytes % (Manual) 9 % (4-9) 12/23/19 05:48 Eosinophils % (Manual) 4 % (0-6) 12/23/19 05:48 Plt Clumps, EDTA Rare 12/23/19 05:48 Plt Morphology Comment Normal (NORMAL) 12/23/19 05:48 RBC Morphology Normal (NORMAL) 12/23/19 05:48 Sodium 143 mmol/L (136-145) 12/23/19 05:48 Corrected Sodium TNP 12/23/19 05:48 Potassium 4.2 mmol/L (3.5-5.1) 12/23/19 05:48 Chloride 108 mmol/L (98-107) H 12/23/19 05:48 Carbon Dioxide 29.1 mmol/L (21-32) 12/23/19 05:48 BUN 7 mg/dL (7-18) 12/23/19 05:48 Creatinine 0.82 mg/dL (0.55-1.02) 12/23/19 05:48 Est GFR (MDRD) Af Amer > 60 (>60) 12/23/19 05:48 Est GFR (MDRD) Non-Af > 60 (>60) 12/23/19 05:48 Glucose 98 mg/dL (65-99) 12/23/19 05:48 Calcium 9.4 mg/dL (8.5-10.1) 12/23/19 05:48 Corrected Calcium 10.4 mg/dL (8.5-10.1) H 12/23/19 05:48 Magnesium 2.3 mg/dL (1.7-2.9) 12/20/19 06:01 Total Bilirubin 0.30 mg/dL (0.2-1.0) 12/23/19 05:48 AST 20 Units/L (15-37) 12/23/19 05:48 ALT 17 Units/L (12-78) 12/23/19 05:48 Alkaline Phosphatase 65 Units/L (46-116) 12/23/19 05:48 Total Protein 6.2 g/dL (6.4-8.2) L 12/23/19 05:48 Albumin 2.8 g/dL (3.4-5.0) L 12/23/19 05:48 Globulin 3.4 g/dL (2.5-4.5) 12/23/19 05:48 Albumin/Globulin Ratio 0.8 Ratio (1.1-2.1) L 12/23/19 05:48 Specimen Type Clean catch urine 12/20/19 05:00 Urine Color Yellow (YELLOW) 12/20/19 05:00 Urine Appearance Clear (CLEAR) 12/20/19 05:00 Urine pH 5.0 (5.0 - 8.0) 12/20/19 05:00 Ur Specific [place] 1.015 (1.000-1.030) 12/20/19 05:00 Urine Protein Negative (NEGATIVE) 12/20/19 05:00 Urine Glucose (UA) Negative (NEGATIVE) 12/20/19 05:00 Urine Ketones 3+ (NEGATIVE) 12/20/19 05:00 Urine Occult Blood Negative (NEGATIVE) 12/20/19 05:00 Urine Nitrite Negative (NEGATIVE) 12/20/19 05:00 Urine Bilirubin Negative (NEGATIVE) 12/20/19 05:00 Urine Urobilinogen Normal (NORMAL) 12/20/19 05:00 Ur Leukocyte Esterase Negative (NEGATIVE) 12/20/19 05:00 Miscellaneous Test Covid 19 12/20/19 09:45 - Plan (1) Altered mental status Status: Acute Plan: CT Head, Labs, Urine, Rocephin. IV HYDRATION, VERIFY HOME MEDICATION. BLOOD AND URINE CULTURES ON ADMISSION (2) Dementia with behavioral disturbance Status: Acute Plan: Start Aricept, Risperdal. Consider Behavior placement. (3) UTI (urinary tract infection) Status: Acute Plan: Rocephin IV (4) Chronic pain Status: Chronic Qualifiers: Chronic pain type: chronic pain syndrome Qualified Code(s): G89.4 - Chronic pain syndrome (5) HTN (hypertension) Status: Chronic (6) HX: breast cancer Status: Chronic (7) Obstructive sleep apnea treated with BiPAP Status: Chronic (8) Pulmonary HTN Status: Chronic (9) Rheumatoid arthritis Status: Chronic
[2019-12-23 16:37] VITALS: BP 141/70
== END 2019-12-23 17:15 | disposition home or self-care (01) ==
LOC: MED/SURG
PROVIDERS: ADMIT Internal Medicine; ATTEND Internal Medicine
CPT/HCPCS: 36415; 70450; 71010; 71045; 80053; 81003; 83735; 85025; 87040; 87086; 87088; 87186; 92610; 96360; 96361; 97110; 97162; A4222; G0378; J0696; J1335; J1642; J3475; J7030; J7050